=== PATIENT | female | born 1955 | race Caucasian/White ===

== ENCOUNTER 2018-04-24 17:07 | Emergency (ER) | payer OTHER ==
[~2018-04-24] VITALS: Ht 167.6 cm; Wt 117.0 kg
[~2018-04-24 17:07] MED LIST: ALBUTEROL2.5 MG/3 M IH; ALLOPURINOL 10100 M1 PO; ANALGESIC325 MG PO; ASPIR 8181 M1 PO; ATACAND8 MG PO; ATIVAN0.5 MG PO; ATIVAN1 MG PO; AZITHROMYCIN 2250 MG PO; AZITHROMYCIN250 MG PO; BACTRIM DS TAB1 EACH PO; BAYER CHEWABLE81 MG PO; CARAFATE 1 GM TA1 GM PO; CLA; CLA PO; CLA1000 MG PO; COLACE100 MG PO; COMBIVENT IN; COMBIVENT INH; COREG PO; CRESTOR10 MG PO; CRESTOR20 MG PO; CRESTOR40 MG PO; D3 + K2 DOTS 11 EACH PO; DIFLUCAN150 M1 PO; DIFLUCAN150 MG PO; DILAUDID4 MG PO; DOXYCYCLINE 10100 M2 PO; DOXYCYCLINE 10100 MG PO; DULCOLAX5 MG PO; FIBERCON625 M1 PO; FISH OIL 1,0001 EAC5 PO; FISH OIL 1,0001 EAC8 PO; FISH OIL 1,001000 M2; FISH OIL OMEGA1 EAC1 PO; FISH OIL OMEGA1 EAC3 PO; FLONASE 0.05%50 MCG NASAL; FUROSEMIDE 40 M40 M1 PO; GLUCOPHAGE1000 MG PO; GTF CHROMIUM PO; HERBAL ENERGY1 EACH; HUMALOG SC; HUMALOG100 UNIT/1 SQ; KLOR-CON 1010 MEQ PO; L-CARNITINE250 MG PO; LANTUS SC; LANTUS SUBQ; LANTUS100 UNIT/M; LEVAQUIN 500 M500 M2 PO; LEVAQUIN 500 M500 M4 PO; LEVEMIR INJECTION; LEVEMIR SUBQ; LIDOCAINE VISC100 ML MM; LISINOPRIL2.5 MG PO; LOPID600 MG PO; MACROBID 100 M100 M1 PO; MAGNESIUM OXID400 MG PO; MEDROLDOSEPACK PO; METAMUCIL POWD288 GM PO; METFORMIN HCL500 MG PO; MILK THISTLE500 MG; MIRALAX17 GM PO; MOTION RELIEF25 MG PO; MULTI FOR HER PO; NORCO 5-325 TA1 EACH PO; NORCO 7.5-3251 EACH PO; NOVOLOG100 UNIT/1 INJECTION; Nitroglycerin SL; ONDANSETRON HCL4 M2 PO; PAIN & FEVER500 MG PO; PAXIL10 MG PO; PEPCID20 MG PO; PLAVIX 75 MG TA75 MG PO; PREDNISONE 10 M10 M1 PO; PREDNISONE 20 M20 MG PO; PREDNISONE50 MG PO; PRILOSEC 20 MG20 MG PO; PROBIOTIC1 EAC1 PO; PROTONIX40 M1 PO; PROTONIX40 M2 PO; RANEXA500 MG PO; RASPBERRY KETONE; RED YEAST RICE30 GM PO; SIMVASTATIN40 MG; SINGULAIR 10 MG10 M1 PO; SYMBICORT160 MCG/4. INH; TESSALON PERLE100 MG PO; VENTOLIN HFA 1818 GM INH; VERTICALM25 MG PO; VITAMIN D1000 UNI1 PO; VITAMIN D3400 UNI1 PO; VITCB500GO PO; XOPENEX 1.25 MG/3 M1 IH; XOPENEX 1.25 MG/3 M1 INH; XOPENEX HF1 UDINHALE INH; ZOFRAN ODT4 MG PO; ZOFRAN ODT4 MG SUBLING; [UNRECOGNIZED DRUG - OTHER]; [UNRECOGNIZED DRUG - OTHER] PO; miralax
[2018-04-24 19:25] VITALS: BP 151/94
== END 2018-04-24 19:26 | disposition home or self-care (01) ==
LOC: M.ERS 17:07
DX: M77.9 Enthesopathy, unspecified (principal); I25.10 Atherosclerotic heart disease of native coronary artery without angina pectoris; E11.9 Type 2 diabetes mellitus without complications; J44.9 Chronic obstructive pulmonary disease, unspecified; K21.9 Gastro-esophageal reflux disease without esophagitis; I11.0 Hypertensive heart disease with heart failure; I50.9 Heart failure, unspecified; M79.7 Fibromyalgia; Z90.49 Acquired absence of other specified parts of digestive tract; Z95.5 Presence of coronary angioplasty implant and graft; Z88.5 Allergy status to narcotic agent; Z88.8 Allergy status to other drugs, medicaments and biological substances; Z88.0 Allergy status to penicillin

== ENCOUNTER → 2018-04-28 | Outpatient (CLI) | payer OTHER ==
[~2018-04-28] MED LIST changes: +BRILINTA60 MG PO; +CARAFATE 1 GM TA1 G1 PO; +EFFIENT10 MG PO; +FISH OIL 1,001000 M2 PO; +LASIX 40 MG TAB40 M2 PO; +NITROGLYCERIN0.4 MG SUBLING
== END ==
LOC: M.LAB 10:53
DX: Z01.812 Encounter for preprocedural laboratory examination (principal)

== ENCOUNTER 2018-05-11 13:46 | Observation (INO) | payer OTHER ==
[~2018-05-11] VITALS: Ht 167.6 cm; Wt 122.0 kg
[~2018-05-11 13:46] MED LIST changes: -BRILINTA60 MG PO; -CARAFATE 1 GM TA1 G1 PO; -EFFIENT10 MG PO; -FISH OIL 1,001000 M2 PO; -LASIX 40 MG TAB40 M2 PO; -NITROGLYCERIN0.4 MG SUBLING
[2018-05-11 13:47] VITALS: BP 154/71
[2018-05-11 14:04] LABS: ABSOLUTE EOSINOPHILS 0.1 thou/uL (0.0-0.7); ABSOLUTE LYMPHOCYTES 1.7 thou/uL (0.8-5.3); ABSOLUTE MONOCYTES 0.4 thou/uL (0.0-1.2); ABSOLUTE NEUTROPHILS 2.9 thou/uL (1.6-8.1); BASOPHILS 0.7 %; EOSINOPHILS 1.2 %; HEMOGLOBIN 14.6 gm/dL (12.0-15.0); LYMPHOCYTES 33.5 %; MCH 30.6 pg (26.0-34.0); MCHC 34.8 g/dL (28.0-37.0); MCV 87.8 fL (80.0-100.0); MONOCYTES 7.3 %; MPV 7.8 fl. (7.2-11.1); NUCLEATED RBCS 0 /100WBC; PLATELET COUNT* 227 thou/uL (150-400); POLYS 57.3 %; RBC 4.79 mil/uL (4.20-5.00); RDW-CV 12.6 % (10.5-14.5)
[2018-05-11 14:17] LABS: ANION GAP 7 mmol/L (7-16); BUN 17 mg/dL (7-18); CALCIUM 8.9 mg/dL (8.5-10.1); CHLORIDE 103 mmol/L (98-107); CO2 26 mmol/L (21-32); CREATININE 0.7 mg/dL (0.6-1.3); GLUCOSE 327 mg/dL (70-99); POTASSIUM 4.1 mmol/L (3.5-5.1); SODIUM 136 mmol/L (136-145)
[2018-05-11 14:18] LABS: INR 1.1; PROTIME 10.8 Seconds (9.20-11.50)
[2018-05-11 14:36] LABS: ALBUMIN 3.3 g/dL (3.4-5.0); ALKALINE PHOSPHATASE 81 U/L (46-116); CK-MB MASS 0.7 ng/mL (<0.5-3.6); LIPASE 206 U/L (73-393); MAGNESIUM 2.1 mg/dL (1.8-2.4); NT-PRO BRAIN NAT PEPTIDE 89 pg/mL (<300); SGOT 17 U/L (15-37); SGPT 25 U/L (30-65); TOTAL BILIRUBIN 0.5 mg/dL (<0.1-1.0); TOTAL PROTEIN 7.1 g/dL (6.4-8.2); TROPONIN-I LEVEL <0.06 ng/mL (<0.06)
[2018-05-11 15:01] VITALS: BP 136/69
[2018-05-11 15:19] VITALS: BP 146/59
[2018-05-11] MEDS ORDERED: LASIX 40 MG TAB40 M2 PO (15:36)
--- NOTE | 2018-05-11 15:40 | NUR ---
RECIEVED REPORT FROM JEAN PAUL RN IN ER OF EXPECTED ADMISSION AT 1452- DX: CHEST PAIN- PT ARRIVED TO UNIT AT 1508 VIA CART TO ROOM 219 UNDER CARE OF - SBA TO BED FOR TRANSFER- TAIL END RIDER PLACED ORDERED, TRACING SR- VS 97.8 18 146/59 76 97% ON 2L VIA NC- PT A&O X4, NOTED TO BE TEARFUL UPON ADMISSION, STATES "I JUST DON'T FEEL GOOD"- REPORTS THAT SHE MIRTHA IS TAKING CARE OF AT [facility], WHOM IS ON HOSPICE- CONTINENT OF BOWEL AND BLADDER- DIMINISHED LUNG SOUNDS, RESP EVEN AND UN-LABORED- ABDOMEN SOFT/OBESE- PT REPORTS EPIGASTRIC ABD PAIN UPON ADMISSION 04/26- BM REPORTED THIS AM- IV NOTED TO RIGHT WRIST INTACT AND SL- SKIN C/D/I, TATOO NOTED-HAS OWN TEETH- CARDIOLOGY CONSULTED, CURRENTLY NPO PENDING CONSULT- CALL LIGHT AND PERSONAL BELONGINGS WITH IN REACH- HOURLY ROUNDS IN PLACE R/T SAFETY/NEEDS-ALL NEEDS MET AT THIS TIME-WCTM
--- NOTE | 2018-05-11 16:03 | EKG ---
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: Tony CHRISTIAN : 1955 Requested By: Bon Belle Order Number: [id number] MD: Jamarcus Ly Measurements Intervals [place] Rate: 93 P: 49 [place]: 141 QRS: 29 QRSD: 85 T: 56 QT: 364 QTc: 453 Interpretive Statements Sinus rhythm Multiple ventricular premature complexes Compared to ECG 06/25/2017 11:43:05 Ventricular premature complex(es) now present Electronically Signed On 05-11-2018 16:03:03 CDT by Jamarcus Ly [email or web address] <ELECTRONICALLY SIGNED> By: Jamarcus Ly MD, FACC 05/11/18 1603 1350 1350 Jamarcus Ly MD, FAC /EPI
[2018-05-11 20:08] VITALS: BP 125/80
[2018-05-12] VITALS (8 sets, daily range): BP systolic 104–139; BP diastolic 43–75
[2018-05-12 02:02] LABS: CHOLESTEROL 241 mg/dL (<200); HDL CHOLESTEROL 37 mg/dL (>40); LDL CHOLESTEROL 166 mg/dL (<100); TC:HDL 6.5 Ratio (Not establshd); TRIGLYCERIDE 193 mg/dL (<150); VLDL 39 mg/dL (<40)
[2018-05-12 02:04] LABS: SERUM ASSESSMENT Clear
--- NOTE | 2018-05-12 06:50 | NUR ---
Pt medicated for c/o epigastric pain at 2130, rated 6/10. Pt appeared to be asleep on reassessment. VSS. No calls for additional needs overnight. NPO since MS for stress echo today. Will continue to monitor.
--- NOTE | 2018-05-12 11:43 | EKG ---
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
--- NOTE | 2018-05-12 13:55 | EXE ---
[place] [address] STRESS ECHOCARDIOGRAM Name: FAUSTINO JACKSON Room: [address] IN [facility]#: [id number] Admission: 05/11/18 Attend Phys: Lore Chapman, Discharge: Date of : 53 Date of Service: 05/12/18 1354 Report #: [id number] THIS REPORT FOR: //name// APPROVED REPORT Study performed: 05/12/2018 11:17:33 Exam: Dobutamine Stress Echo Indication: Chest pain Patient Location: In-Patient Stress Nurse: Kierra Casas RN Room #: 219 Supervising Physician: Jamarcus Ly MD Status: routine Ht: 5 ft 6 in HR: 69 bpm BP: 103/64 mmHg Medical History Cardiac Risk Factors: HTN, Hyperlipidemia, DM Procedure The patient underwent a Pharmacological Stress Test using Dobutamine. Blood pressure, heart rate, and EKG were monitored. An Echocardiogram was performed by artificial insemination technician in four stages in quad fashion. At peak stress, four selected images were obtained and placed side by side with resting images for comparison. Stress Test Details Stress Test: Pharmacological stress testing performed using 30 mcg/kg/min of Dobutamine. Reason for pharmacologic stress test: physical limitation. HR Resting HR: 69 bpm Max Heart Rate (APMHR): 156 bpm Max HR Achieved: 138 bpm Target HR (85% APMHR): 132 bpm % of APMHR: 88 Recovery HR: 97 bpm HR response to stress: Normal HR response to stress BP Resting BP: 103/64 mmHg Max BP: 147/84 mmHg Recovery BP: 131/63 [place] [address] STRESS ECHOCARDIOGRAM Name: FAUSTINO JACKSON Room: [address]#: [id number] Admission: 05/11/18 Attend Phys: Lore Chapman, Discharge: Date of : 53 Date of Service: 05/12/18 1354 Report #: [id number] ECG Resting ECG: Sinus Rhythm, normal EKG Stress ECG: Sinus Tachycardia ST Change: None Arrhythmia: None Recovery ECG: Sinus Rhythm Recovery ST Change: None Recovery Arrhythmia: None Clinical The patient tolerated dobutamine infusion without significant symptoms. Stress ECG Conclusion The baseline 12-lead electrocardiogram shows sinus rhythm with no significant ST or T wave abnormalities. EKGs obtained during and post dobutamine stress show sinus rhythm and sinus tachycardia with no significant ST or T wave changes when compared to baseline. There were no stress-induced arrhythmias. Pre-Stress Echo The resting Echocardiogram showed normal left ventricular contractility with an estimated Ejection Fraction of about 60-65%. Post-Stress Echo The stress Echocardiogram showed normal left ventricular contractility with an estimated Ejection Fraction of about >70%. Clinical No clinical or ECG evidence for ischemia. Conclusion Clinical Response: Non-ischemic Stress ECG Response: Non-ischemic Stress Echo Images: Non-ischemic The left ventricle is normal in size and wall thickness in both the rest and stress images. Other Information Study Quality: Good <Conclusion> [place] [address] STRESS ECHOCARDIOGRAM Name: FAUSTINO JACKSON Room: [address]#: [id number] Admission: 05/11/18 Attend Phys: Lore Chapman, Discharge: Date of : 53 Date of Service: 05/12/18 1354 Report #: [id number] The left ventricle is normal in size and wall thickness in both the rest and stress images. <ELECTRONICALLY SIGNED> By: Jamarcus Ly MD, FACC 05/12/18 1354 1354 135 Jamarcus Ly MD, FACC /INF
--- NOTE | 2018-05-12 13:56 | EKG ---
[place] [address] ELECTROCARDIOGRAM REPORT Name: URMILA JACKSONChristopher SIGRID Room: [address] ADM IN .R.#: [id number] Admission: 05/11/18 Attend Phys: Lore Chapman MD Discharge: Date of : 53 Report #: [id number] THIS REPORT FOR: //name// 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
--- NOTE | 2018-05-12 14:10 | NUR ---
ASSUMED CARE OF PATIENT AFTER REPORT THIS MORNING. PATIENT AWAKE, ALERT, AND ORIENTED APPROPRIATELY. PHYSICAL ASSESSMENT COMPLETED AND CHARTED. COMPLAINED OF HEADACHE. GIVEN PRN AND SCHEDULED MEDICATIONS AFTER STRESS TEST, SEE EMAR FOR DOCUMENTATION. VITAL SIGNS STABLE. OXYGEN SATURATION WITHIN NORMAL LIMITS ON ROOM AIR. PATIENT UP AD BRITTANEY. USES CALL LIGHT APPROPRIATELY. MOVED PATIENT TO [facility] FOR [facility] WARNING THIS AFTERNOON. BACK IN ROOM AT THIS TIME WARNING HAS BEEN LIFTED. PATIENT DENIES NEEDS. CALL LIGHT WITHIN REACH. NURSING WILL CONTINUE TO MONITOR.
--- NOTE | 2018-05-12 16:35 | NUR ---
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 DISCUSSED WITH HER THAT DR. WASHINGTON FELT SHE WAS READY TO DISCHARGE TO HOME, OR WE COULD LOOK INTO TRANSFERRING HER TO [place] TO AN IN-NETWORK FACILITY. PT SAID SHE WAS GLAD TO FIND OUT THAT HER 'PAIN WAS NOT MY HEART.' PT SAID THE BURNING THAT SHE WAS HAVING IS BETTER AND SHE THINKS THE NEW MEDICINE IS HELPING. SHE SAID SHE FEELS THAT SHE IS READY TO GO HOME. TOLD HER SHE COULD FOLLOW UP WITH GI AN OUTPATIENT FOR FURTHER TESTING. PT SAID SHE DOES WANT TO GET HOME, HER IS ON HOSPICE AND THEY ARE SWITCHING TO A DIFFERENT HOSPICE AGENCY. CALLED DR. WASHINGTON TO LET HER KNOW PT IS COMFORTABLE WITH GOING HOME TONIGHT. NURSING NOTIFIED THAT DR WASHINGTON SAID SHE WOULD PUT THE DISCHARGE ORDERS IN THE COMPUTER AND NURSING CAN CALL IN THE NEW PRESCRIPTIONS.
[2018-05-12] MEDS ORDERED: CARAFATE 1 GM TA1 G1 PO (16:44)
[2018-05-12] MEDS ORDERED: PROTONIX40 M1 PO (16:44)
[2018-05-12] MEDS ORDERED: VITAMIN D1000 UNI1 PO (17:14)
--- NOTE | 2018-05-12 17:41 | NUR ---
RECEIVED ORDERS TO DISCHARGE PATIENT TO HOME. TO FOLLOW UP WITH GI FOR OUTPATIENT EGD. DISCHARGE PAPERWORK COMPLETED AND DISCUSSED WITH PATIENT. CALLED IN PRESCRIPTIONS TO [facility] FOR PROTONIX AND CARAFATE. IV DISCONTINUED AND HEART MONITOR RETURNED TO NURSE'S STATION. PATIENT DISCHARGED WITH SON AT THIS TIME. ESCORTED TO FRONT DOOR BY DIRECTOR PHONE TABBY.
--- NOTE | 2018-05-16 14:07 | CON ---
[address] [address] CONSULTATION Name: FAUSTINO JACKSON Room: [address] IN M.R.#: [id number] Admission: 05/11/18 Attend Phys: Lore Chapman MD Discharge: 05/12/18 Date of : 53 Report #: [id number] THIS REPORT FOR: //name// CC: Raven Johnson DO Lore Chapman DICTATED BY: Nerissa Borrego [facility] DATE OF SERVICE: 05/12/2018 PRIMARY CARE PHYSICIAN: Raven Johnson D.O. Please note at the time of this dictation, the patient was seen and physically examined by myself. REASON FOR CONSULTATION: Atypical chest pain. HISTORY OF PRESENT ILLNESS: This 63-year-old female who presented to the Emergency Room with having chest pain that radiated into her jaw and down her left arm. She received nitro and aspirin, which she states did relieve her pain; however, she continued to have this burning sensation in her stomach and up into her chest. She was given a GI cocktail with a combination of everything that did help. The patient has a significant history for CAD. She has a history of 3 stents done in the past. She underwent a stress echo today, which was essentially negative showing an EF of 60%-65%. The patient states she is still having this epigastric discomfort, burning that will radiate up into her chest at the present time. She is not having any nausea or vomiting at this time as well. The patient states back in 2013 that she had an EGD at [place] but she does not recall what the findings were. She also had a colonoscopy many years ago and does not recall findings as well. She has a longstanding history of issues with constipation in which she will take numerous gmso-[id number] agents to help with that, so that she is going every day. ALLERGIES: Include COMPAZINE, KEFLEX, CIPRO, CODEINE, ZETIA, PENICILLIN, PROMETHAZINE, LIPITOR and LOPRESSOR. MEDICATIONS: From home include potassium, vitamin D, aspirin, multivitamin, MiraLax, Dulcolax, magnesium oxide, vitamin D and fish oil. PAST MEDICAL HISTORY: Significant for fibromyalgia, TMJ, history of bronchitis, pneumonia in the past, GERD, congestive heart failure. She has had coronary artery disease with stents x 3, hypertension, diabetes and COPD. PAST SURGICAL HISTORY: Cataract surgery in 2013. She has had an ablation and stent [place] [address] CONSULTATION Name: FAUSTINO JACKSON Room: [address]#: [id number] Admission: 05/11/18 Attend Phys: Lore Chapman MD Discharge: 05/12/18 Date of : 53 Report #: [id number] FAMILY HISTORY: Negative for any GI or female cancers. SOCIAL HISTORY: Denies any alcohol, tobacco or illegal drug use. REVIEW OF SYSTEMS: Twelve-point review of systems is essentially negative except what is mentioned in the HPI. PHYSICAL EXAMINATION: VITAL SIGNS: Temperature 36.4, pulse 79, respirations 18 and blood pressure 114/63. HEART: Regular rate and rhythm. LUNGS: Clear. ABDOMEN: Soft. Positive bowel sounds in all 4 quadrants with some epigastric tenderness noted to palpation, radiating up into the chest. LABORATORY DATA: Hemoglobin 14.6, hematocrit 42, white count is 5 and platelets 227. Sodium 136, potassium 4.1, chloride 103, CO2 of 26, BUN is 17, creatinine 0.7, GFR is 84 and glucose is 327. PT 10.8 and INR 1.1. RADIOLOGICAL DATA: Chest x-ray was negative. IMPRESSION: 1. Atypical chest pain, stress negative. 2. Gastroesophageal reflux disease, worsening. 3. Epigastric pain. 4. Chronic constipation. PLAN: 1. EGD tomorrow with Dr. Fuller. 2. The patient will need a better regular bowel regimen going home. 3. We will need outpatient colonoscopy for screening once discharged. Thank you for allowing us to participate in this patient's care. Please do not hesitate to call with any questions in regard to this consult. <ELECTRONICALLY SIGNED> By: Everett Rodríguez DO 05/16/18 1407 1549 [id number] Rodríguez DO /nt
--- NOTE | 2018-05-17 18:18 | CON ---
[address] [address] CONSULTATION Name: FAUSTINO JACKSON Room: [address] IN M.R.#: [id number] Admission: 05/11/18 Attend Phys: Lore Chapman MD Discharge: 05/12/18 Date of : 53 Report #: [id number] THIS REPORT FOR: //name// CC: Raven Hadley DATE OF SERVICE: 05/11/2018 TYPE OF REPORT: Cardiology consultation. HISTORY OF THE PRESENT ILLNESS: The patient is a 63-year-old white female who I was asked to see in the hospital today after she complained of chest pain. The patient has an extensive past medical history. She actually saw Dr. Ly back in 2009 when she was having back pain. She had a previous stent placed at [facility] in 2008. She also has a history of SVT and had a previous ablation. 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 She then had a stent placed in the LAD for in-stent restenosis. She had another heart catheterization by Dr. Ly in 2011 that showed normal left ventricular function, anomalous circumflex artery and widely patent stent. It is felt her chest pain was noncardiac. She had another heart catheterization in [address] Montague that showed LAD had no restenosis. The anomalous circumflex had no significant disease. The right coronary had a 30% stenosis. Medical therapy was recommended. She actually had another heart catheterization by Dr. 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 She just saw Dr. Ly a week ago for followup and apparently she was doing well. However, she has not felt well for the past week with pain going into her back. Today, she felt a burning epigastric, going up into her throat. She felt a burning sensation. She belched, felt diaphoretic, short of breath and nauseated. She called the ambulance and was brought here to [facility]. She denied any fever or cough, bleeding, trauma to her chest. She does get short of breath on exertion. She notes occasional skipped heartbeat but no syncope. PAST MEDICAL HISTORY: She has had a previous surgery that included the following: She has had her gallbladder removed in the past. She has a history of hypertension, glucose intolerance and hyperlipidemia. MEDICATIONS: Include furosemide for swelling and aspirin a day. She is no longer on metformin. ALLERGIES: She cannot tolerate STATIN DRUGS, CODEINE, ZETIA, [place] [address] CONSULTATION Name: FAUSTINO JACKSON Room: [address] IN [facility].#: [id number] Admission: 05/11/18 Attend Phys: Lore Chapman MD Discharge: 05/12/18 Date of : 53 Report #: [id number] PENICILLIN. FAMILY HISTORY: Positive for heart disease. SOCIAL HISTORY: She is . She and her live in [place]. She is not working at this time. She is cared for her who is under hospice. She quit smoking years ago. No alcohol abuse. REVIEW OF SYSTEMS: She had no history of stroke. She does have asthma. No history of peptic ulcer disease, kidney disease, cancer, psychiatric illness or chronic skin condition. PHYSICAL EXAMINATION: GENERAL: Revealed an elderly female who appeared in mild distress secondary to epigastric pain. VITAL SIGNS: She had a blood pressure of 140/70, pulse 70 and she is afebrile. HEENT: She is anicteric. Conjunctivae pink. Mucous members moist. NECK: Veins do not appear distended. No carotid bruits. CHEST: Clear to auscultation. CARDIOVASCULAR: Regular rate and rhythm. ABDOMEN: Obese, soft and nontender. EXTREMITIES: Had no edema. Dorsalis pedis is 2+ bilaterally. SKIN: Warm and dry. NEUROLOGICAL: Nonfocal. LYMPHATIC: No adenopathy. MUSCULOSKELETAL: No joint effusion. RADIOLOGICAL DATA: She had a workup in the Emergency Room that included portable chest x-ray that showed normal heart size and clear lung redman. LABORATORY DATA: She had lab work today: Sodium 136, creatinine 0.7 and glucose 327. Lipase 206, bilirubin 0.5 and alkaline phosphatase is 81. Her troponin 0.06. The rest of her labs, she had a white blood cell count 5.0 and hemoglobin 14.6. IMPRESSION AND RECOMMENDATIONS: 1. Epigastric pain. Suspect gastrointestinal. 2. Coronary artery disease. Previous stent. Recommend dobutamine echo. 3. Hypertension. The patient is not on medications. 4. Hyperlipidemia. The patient tolerates statin drug. 5. Diabetes. The patient not taking metformin. 6. [place] [address] CONSULTATION Name: FAUSTINO JACKSON Room: [address] IN M.R.#: [id number] Admission: 05/11/18 Attend Phys: Lore Chapman MD Discharge: 05/12/18 Date of : 53 Report #: [id number] 7. History of supraventricular tachycardia with previous ablation. No recent arrhythmias noted. <ELECTRONICALLY SIGNED> By: Dejon Buck MD, FACC 05/17/18 1818 1719 2128Daellen Buck MD, FACAndres /nt
--- NOTE | 2018-05-18 16:57 | CON ---
[address] [address] CONSULTATION Name: FAUSTINO JACKSON Room: [address] IN M.R.#: [id number] Admission: 05/11/18 Attend Phys: Lore Chapman MD Discharge: 05/12/18 Date of : 53 Report #: [id number] THIS REPORT FOR: //name// CC: Raven Chapman DATE OF SERVICE: 05/12/2018 ADDENDUM TYPE OF REPORT: GI consultation. REFERRING PHYSICIAN: Dr. Lore Chapman. This is an addendum to job #[id number]. The patient was seen and examined by our nurse practitioner, earlier today, by the time I went to see her, she has been discharged to home. We are seeing her for noncardiac atypical chest discomfort and chest pain with a negative stress test. If she wants to undergo endoscopic evaluation, she will need to contact our office to schedule the same. She also due for a screening colonoscopy as well. Since the patient has been discharged, we will contact her to arrange for the same. She will likely need to have a 2-day bowel preparation secondary to chronic constipation. It should be noted that the patient is under a lot of stress at this point in time with her currently being on hospice care. This certainly contributing to some of her discomfort. <ELECTRONICALLY SIGNED> By: Everett Rodríguez DO 05/18/18 1657 1325 [id number] alvarez Ramirez
== END 2018-05-12 17:48 | disposition home or self-care (01) ==
LOC: M.ERS 13:46 → M.TBA-ER 14:38 → M.2W 14:38
PROVIDERS: Family Medicine; ADMIT Internal Medicine
DX: R07.89 Other chest pain (principal); K21.9 Gastro-esophageal reflux disease without esophagitis; E11.65 Type 2 diabetes mellitus with hyperglycemia; I25.10 Atherosclerotic heart disease of native coronary artery without angina pectoris; I11.0 Hypertensive heart disease with heart failure; I50.9 Heart failure, unspecified; R10.13 Epigastric pain; J44.9 Chronic obstructive pulmonary disease, unspecified; K59.09 Other constipation; Z98.890 Other specified postprocedural states; Z90.49 Acquired absence of other specified parts of digestive tract; Z79.899 Other long term (current) drug therapy; Z98.61 Coronary angioplasty status; Z60.9 Problem related to social environment, unspecified

== ENCOUNTER 2018-06-07 16:38 | Inpatient (IN) | payer OTHER ==
[2018-06-07] VITALS (8 sets, daily range): BP systolic 95–156; BP diastolic 45–93
[~2018-06-07] VITALS: Ht 167.6 cm; Wt 121.1 kg
[~2018-06-07 16:38] MED LIST changes: +CARAFATE 1 GM TA1 G1 PO; +LASIX 40 MG TAB40 M2 PO
[2018-06-07 17:02] LABS: ABSOLUTE BASOPHILS 0.1 thou/uL (0.0-0.2); ABSOLUTE EOSINOPHILS 0.1 thou/uL (0.0-0.7); ABSOLUTE LYMPHOCYTES 1.7 thou/uL (0.8-5.3); ABSOLUTE MONOCYTES 0.4 thou/uL (0.0-1.2); ABSOLUTE NEUTROPHILS 4.3 thou/uL (1.6-8.1); BASOPHILS 1.2 %; HEMATOCRIT 44.2 % (37.0-47.0); HEMOGLOBIN 15.2 gm/dL (12.0-15.0); LYMPHOCYTES 26.1 %; MCH 30.3 pg (26.0-34.0); MCHC 34.3 g/dL (28.0-37.0); MCV 88.4 fL (80.0-100.0); MONOCYTES 5.5 %; MPV 8.4 fl. (7.2-11.1); NUCLEATED RBCS 0 /100WBC; PLATELET COUNT* 248 thou/uL (150-400); POLYS 66.2 %; RDW-CV 12.6 % (10.5-14.5); WBC 6.4 thou/uL (4.0-11.0)
[2018-06-07 17:10] LABS: CALCIUM 9.7 mg/dL (8.5-10.1)
[2018-06-07 17:17] LABS: APTT 23.6 Seconds (25.0-31.3); INR 1.1; PROTIME 10.7 Seconds (9.20-11.50)
[2018-06-07 17:21] LABS: ALBUMIN 3.4 g/dL (3.4-5.0); TOTAL BILIRUBIN 0.7 mg/dL (<0.1-1.0); TOTAL PROTEIN 7.3 g/dL (6.4-8.2); TROPONIN-I LEVEL 0.4 ng/mL (<0.06)
[2018-06-07 20:42] LABS: CHOLESTEROL 265 mg/dL (<200); HDL CHOLESTEROL 40 mg/dL (>40); LDL CHOLESTEROL 154 mg/dL (<100); TC:HDL 6.6 Ratio (Not establshd); TRIGLYCERIDE 359 mg/dL (<150); VLDL 72 mg/dL (<40)
[2018-06-07 20:43] LABS: SERUM ASSESSMENT Slight Lipemia
--- NOTE | 2018-06-07 22:56 | NUR ---
PATIENT ARRIVED ON UNIT FROM [facility] @ 1999. NS RUNNING, RIGHT GROIN SITE LOOKS GREAT, NO HEMATOMA PRESENT, MINIMAL BLOOD DRAINAGE. PT DENIES PAIN, NO N &V. DR. SINGER AT BEDSIDE. PT COMPLAINING INDIGESTION ORDERS RECIEVED FROM . CAROLYN PARTIDA WITH OCCATIONAL PVS. PT DID VOID ABOUT 500ML. SPOKE WITH FAMILY NO FURTHER CONCERNS AT THIS TIME. WILL CONTINUE TO MONITOR CLOSELY
[2018-06-08] VITALS (12 sets, daily range): BP systolic 90–101; BP diastolic 45–57
[2018-06-08 03:45] LABS: HEMATOCRIT 41.2 % (37.0-47.0); HEMOGLOBIN 13.9 gm/dL (12.0-15.0); MCH 30.2 pg (26.0-34.0); MCHC 33.8 g/dL (28.0-37.0); MCV 89.4 fL (80.0-100.0); MPV 8.2 fl. (7.2-11.1); RBC 4.61 mil/uL (4.20-5.00); RDW-CV 12.7 % (10.5-14.5); WBC 7.5 thou/uL (4.0-11.0)
[2018-06-08 04:12] LABS: ALBUMIN 2.8 g/dL (3.4-5.0); CALCIUM 8.7 mg/dL (8.5-10.1); CREATININE 0.7 mg/dL (0.6-1.3); MAGNESIUM 1.6 mg/dL (1.8-2.4); TOTAL BILIRUBIN 0.5 mg/dL (<0.1-1.0)
[2018-06-08 05:28] LABS: TROPONIN-I LEVEL 17.76 ng/mL (<0.06)
--- NOTE | 2018-06-08 05:58 | NUR ---
PATIENT PROGRESSING TOWARDS GOALS. HEMODYNAMICALLY STABLE OVER NIGHT NO ACUTE CHANGES. RIGHT GROIN SITE LOOKS GREAT, HEMATOMA FREE, MINIMAL BRUISING, NO BLEEDING, SITE INTACT, DENIES PAIN. PULSES 2+, CAPILLARY REFILL <3. PT DID VOID. CURRENTLY SLEEPING NO FUTHER CONCERNS AT THIS TIME. BED TO LOWEST POSITION. CALL LIGHT IN PLACE.
--- NOTE | 2018-06-08 10:30 | NUR ---
PT ADMITTED YESTERDAY, WENT FROM THE ED TO [facility]. PT SAID SHE IS FEELING BETTER TODAY BUT 'WASN'T SURE I WAS GOING TO MAKE IT YESTERDAY.' PT LIVES AT HOME WITH HER WHO IS ON HOSPICE. THEIR CHILDREN ARE HELPING CARE FOR HER WHILE SHE IS IN THE HOSPITAL. THEY ARE CURRENTLY LIVING WITH THEIR CHILDREN BUT ARE PLANNING ON MOVING TO THEIR OWN APT NEXT WEEK. PT SAID SHE KNOWS SHE CAN'T OVERDO IT IN TAKING CARE OF HER . PT CONCERNED ABOUT THE COST OF HER MEDS AT DISCHARGE. WILL CHECK INTO OPTIONS AT DISCHARGE. DISCUSSED ROLE OF CASE MGT, WILL CONTINUE TO FOLLOW.
--- NOTE | 2018-06-08 13:53 | NUR ---
PATIENT DENIES CHEST PAIN UP TO BSC. NSR SEE MONITOR.
--- NOTE | 2018-06-08 16:51 | 2DMMODE ---
[place] [address] 2 D/M-MODE ECHOCARDIOGRAM Name: FAUSTINO JACKSON Room: [address] IN [facility]#: [id number] Admission: 06/07/18 Attend Phys: Lore Chapman, Discharge: Date of : 53 Date of Service: 06/08/18 1651 Report #: [id number] THIS REPORT FOR: //name// APPROVED REPORT Study performed: 06/08/2018 14:09:28 EXAM: Comprehensive 2D, Doppler, and color-flow Echocardiogram Patient Location: In-Patient Room #: 001 Status: routine BSA: 2.28 HR: 85 bpm BP: 92/48 mmHg Rhythm: NSR Other Information Study Quality: Good Indications Acute AZ Chest Pain 2D Dimensions LVEF(%): 57.26 (>50%) IVSd: 10.98 (7-11mm) LVOT Diam: 19.12 (18-24mm) LVDd: 47.52 mm PWd: 11.25 (7-11mm) Ascending Ao: 28.37 (22-36mm) LVDs: 33.23 (25-40mm) Aortic Root: 26.74 mm Mars's LVEF: 57.26 % Volumes Left Atrial Volume (Systole) LA ESV Index: 20.90 mL/m2 Aortic Valve AoV Peak Jayme.: 2.02 m/s AO Peak Gr.: 16.37 mmHg LVOT Max P.44 mmHg AO Mean Gr.: 10.01 mmHg LVOT Mean P.26 mmHg LVOT Max V: 1.05 m/s AO V2 VTI: 40.12 cm LVOT Mean V: 0.69 m/s VLADIMIR (VTI): 1.61 cm2 LVOT V1 VTI: 22.48 [place] [address] 2 D/M-MODE ECHOCARDIOGRAM Name: FAUSTINO JACKSON SIGRID Room: [address] IN .R.#: [id number] Admission: 06/07/18 Attend Phys: Lore Chapman, Discharge: Date of : 53 Date of Service: 06/08/18 1651 Report #: [id number] E/A Ratio: 1.04 MV Decel. Time: 180.26 ms MV E Max Jayme.: 1.09 m/s MV PHT: 52.28 ms MVA (PHT): 4.21 cm2 TDI E/Lateral E': 9.91 E/Medial E': 9.91 Medial E' Jayme.: 0.11 m/s Lateral E' Jayme.: 0.11 m/s Pulmonary Valve PV Peak Jayme.: 1.22 m/s PV Peak Gr.: 5.92 mmHg Tricuspid Valve RAP Estimate: 5.00 mmHg TR Peak Gr.: 31.61 mmHg RVSP: 36.61 mmHg PA Pressure: 36.61 mmHg Left Ventricle The left ventricle is normal size. There is normal LV segmental wall motion. There is normal left ventricular wall thickness. Left ventricular systolic function is normal. The left ventricular ejection fraction is within the normal range. LVEF is 55-60%. The left ventricular diastolic function is normal. Right Ventricle The right ventricle is normal size. The right ventricular systolic function is normal. Atria The left atrium size is normal. The right atrium size is normal. Aortic Valve Mild aortic valve sclerosis. No aortic regurgitation is present. There is no aortic valvular stenosis. Mitral Valve The mitral valve is normal in structure. Mild mitral regurgitation. No evidence of mitral valve stenosis. Tricuspid Valve The tricuspid valve is normal in structure. Trace tricuspid regurgitation. Mild [place] [address] 2 D/M-MODE ECHOCARDIOGRAM Name: FAUSTINO JACKSON Room: [address] IN ..#: [id number] Admission: 06/07/18 Attend Phys: Lore Chapman, Discharge: Date of : 53 Date of Service: 06/08/18 1651 Report #: [id number] Pulmonic Valve The pulmonary valve is normal in structure. There is no pulmonic valvular regurgitation. Great Vessels The aortic root is normal in size. IVC is normal in size and collapses with >50% inspiration Pericardium There is no pericardial effusion. <Conclusion> The left ventricle is normal size. There is normal left ventricular wall thickness. Left ventricular systolic function is normal. The left ventricular ejection fraction is within the normal range. LVEF is 55-60%. The left ventricular diastolic function is normal. The right ventricle is normal size. The left atrium size is normal. Mild aortic valve sclerosis. No aortic regurgitation is present. There is no aortic valvular stenosis. The mitral valve is normal in structure. Mild mitral regurgitation. The tricuspid valve is normal in structure. IVC is normal in size and collapses with >50% inspiration There is no pericardial effusion. There is normal LV segmental wall motion. <ELECTRONICALLY SIGNED> By: Ben Pack MD, FACC 06/08/18 165 50 50 Ben Pack MD, FACC /INF
--- NOTE | 2018-06-08 17:13 | CON ---
[address] [address] CONSULTATION Name: FAUSTINO JACKSON Room: [address] IN [facility]#: [id number] Admission: 06/07/18 Attend Phys: Lore Chapman MD Discharge: Date of : 53 Report #: [id number] THIS REPORT FOR: //name// CC: Raven Chapman DATE OF SERVICE: 06/07/2018 CARDIOLOGY CONSULTATION The patient to be admitted to the ICU on 06/07/2018. HISTORY OF PRESENT ILLNESS: The patient is a 63-year-old female who came to the Emergency Room with severe chest pain and associated nausea and vomiting. There is a history of prior coronary stenting and diabetes. She was noted to have a blood sugar of greater than 400 mg percent in the ER. Electrocardiogram revealed minor nonspecific ST-T alterations. She had persistent pain and a troponin of 0.4 with findings compatible with non-ST segment elevation myocardial infarction with persistent pain. I was asked to see her in this context. The pain persisted at the point of undertaking catheterization. PAST MEDICAL HISTORY: Remarkable for diabetes, weight excess and prior coronary stenting. SOCIAL HISTORY: Prior cigarette smoking history. PHYSICAL EXAMINATION: GENERAL: Demonstrates a distressed middle-aged female. VITAL SIGNS: Blood pressure is 140/70, pulse rate 74, respirations 18 per minute. NECK: Jugular venous pressure is normal. CHEST: Clear. CARDIAC: Reveals normal first and second heart sounds with a question of S4 gallop. ABDOMEN: Moderately obese. EXTREMITIES: Without edema with intact femoral, pedal and radial pulses. Electrocardiogram reveals a sinus rhythm with minor nonspecific ST-T changes. Troponins elevated at 0.4. IMPRESSION: 1. Non-ST segment elevation myocardial infarction with persistent pain. 2. Uncontrolled diabetes with blood sugar greater than 400 [place] [address] CONSULTATION Name: FAUSTINO JACKSON Room: [address] IN [facility]#: [id number] Admission: 06/07/18 Attend Phys: Lore Chapman MD Discharge: Date of : 53 Report #: [id number] 3. Weight excess. RECOMMENDATIONS: Urgent catheterization with strong consideration of intervention contingent on the findings given the clinical pattern of non-ST segment elevation myocardial infarction with persistent pain. This has been discussed with the patient. We will plan to proceed emergently on 06/07/2018. Critical care time is 36 minutes from [id number]. <ELECTRONICALLY SIGNED> By: Ben Pack MD, FACC 06/08/181712 55 2059Ben Pack MD, FACC /nt
--- NOTE | 2018-06-08 19:31 | EKG ---
[place] [address] ELECTROCARDIOGRAM REPORT Name: FAUSTINO JACKSON Room: [address] IN [facility]#: [id number] Admission: 06/07/18 Attend Phys: Lore Chapman MD Discharge: Date of : 53 Report #: [id number] THIS REPORT FOR: //name// [facility] ED Test Date: 2018-06-07 Test Time: 16:42:29 Pat Name: FAUSTINO JACKSON Department: Room: Gender: Readers' Advisory Service Librarian: Tony ENGLE : 1955 Requested By: Maya Tovar Order Number: [id number] MD: Jamarcus Ly Measurements Intervals [place] Rate: 99 P: 31 AL: 134 QRS: 52 QRSD: 102 T: 94 QT: 369 QTc: 474 Interpretive Statements Sinus rhythm Compared to ECG 05/12/2018 01:58:22 No significant changes noted Electronically Signed On 06-08-2018 19:31:45 CDT by Jamarcus Ly [email or web address] <ELECTRONICALLY SIGNED> By: Jamarcus Ly MD, [facility] 06/08/181930 1642 164 Jamarcus Ly MD, [facility] /EPI
--- NOTE | 2018-06-08 19:33 | EKG ---
[place] [address] ELECTROCARDIOGRAM REPORT Name: FAUSTINO JACKSON Room: [address] ADM IN .R.#: [id number] Admission: 06/07/18 Attend Phys: Lore Chapman MD Discharge: Date of : 53 Report #: [id number] THIS REPORT FOR: //name// [facility] Test Date: 2018-06-07 Test Time: 21:04:53 Pat Name: FAUSTINO JACKSON Department: Room: [address] Gender: F Communication Assistant: [facility] : 1955 Requested By: Ben Pack Order Number: [id number] Subhash MD: Jamarcus Ly Measurements Intervals [place] Rate: 80 P: 39 CT: 142 QRS: -18 QRSD: 91 T: 36 QT: 394 QTc: 455 Interpretive Statements Sinus rhythm Borderline left axis deviation Compared to ECG 05/12/2018 01:58:22 No significant changes Electronically Signed On 06-08-2018 19:33:14 CDT by Jamarcus Ly [email or web address] <ELECTRONICALLY SIGNED> By: Jamarcus Ly MD, [facility] 06/08/18 1933 03 03 Jamarcus Ly MD, [facility] /EPI
--- NOTE | 2018-06-08 19:35 | EKG ---
[place] [address] ELECTROCARDIOGRAM REPORT Name: FAUSTINO JACKSON Room: [address] ADM IN .R.#: [id number] Admission: 06/07/18 Attend Phys: Lore Chapman MD Discharge: Date of : 53 Report #: [id number] THIS REPORT FOR: //name// [facility] Test Date: 2018-06-08 Test Time: 07:54:16 Pat Name: FAUSTINO JACKSON Department: Room: [address] Gender: F Dredge Mate: CHERELLE : 1955 Requested By: Ben Pack Order Number: [id number] Subhash MD: Jamarcus Ly Measurements Intervals [place] Rate: 75 P: 53 AR: 165 QRS: -23 QRSD: 94 T: 5 QT: 419 QTc: 468 Interpretive Statements Sinus rhythm Borderline left axis deviation Compared to ECG 05/12/2018 01:58:22 No significant changes Electronically Signed On 06-08-2018 19:35:27 CDT by Jamarcus Ly [email or web address] <ELECTRONICALLY SIGNED> By: Jamarcus Ly MD, [facility] 06/08/181934 0754 0754 Jamarcus Ly MD, [facility] /EPI
[2018-06-09] VITALS (11 sets, daily range): BP systolic 101–140; BP diastolic 45–77
--- NOTE | 2018-06-09 06:00 | NUR ---
PATIENT PROGRESSING TOWARDS. NO ACUTE HEMODYNAMIC CHANGES OVERNIGHT. PT DID HAVE A HEADACHE AT SHIFT CHANGE. HEADACHE STILL PRESENT BUT PT STATED PAIN LEVEL IS MANAGABLE. PT WAS ABLE TO SLEEP OVER NIGHT. UO WNL. VITAL SINGS WNL. PT STATE SHE IS READY TO GO HOME AND TAKE CARE OF HER . CALL LIGHT WITH PT. BED TO LOWEST POSITION. WILL CONTINUE TO MONITOR
[2018-06-09 06:05] LABS: HEMATOCRIT 40.2 % (37.0-47.0); HEMOGLOBIN 13.6 gm/dL (12.0-15.0); MCH 30.5 pg (26.0-34.0); MCHC 33.8 g/dL (28.0-37.0); MCV 90.3 fL (80.0-100.0); MPV 8.2 fl. (7.2-11.1); RBC 4.45 mil/uL (4.20-5.00); RDW-CV 12.9 % (10.5-14.5); WBC 5.2 thou/uL (4.0-11.0)
[2018-06-09 06:23] LABS: ALBUMIN 2.7 g/dL (3.4-5.0); CALCIUM 8.7 mg/dL (8.5-10.1); CREATININE 0.7 mg/dL (0.6-1.3); MAGNESIUM 1.9 mg/dL (1.8-2.4); POTASSIUM 4.2 mmol/L (3.5-5.1); TOTAL BILIRUBIN 0.5 mg/dL (<0.1-1.0); TOTAL PROTEIN 5.9 g/dL (6.4-8.2)
[2018-06-09 06:25] LABS: TROPONIN-I LEVEL 3.95 ng/mL (<0.06)
[2018-06-09] MEDS ORDERED: EFFIENT10 MG PO (07:26)
[2018-06-09] MEDS ORDERED: FISH OIL 1,001000 M2 PO (07:26)
[2018-06-09] MEDS ORDERED: NITROGLYCERIN0.4 MG SUBLING (07:26)
--- NOTE | 2018-06-09 14:33 | NUR ---
AFTER WORKING WITH CARDIAC REHAB NURSE, PATIENT UP IN CHAIR. CARDIAC REHAB NURSE AND THIS RN IN ROOM. PATIENT'S HR INCREASED TO 130S NOTED TO BE SINUS TACHYCARDIA. PATIENT DIAPHORETIC AND APPEARED TO HAVE SYNCOPAL EPISODE. DR SINGER NURSE PAGED, AWAITING RESPONSE. CASE MANAGEMENT IN AFTER INCIDENT TO TALK TO PATIENT ABOUT BRILLINTA SAMPLES. PATIENT ABLE TO HOLD CONVERSATION AND LESS DIAPHORETIC, BUT STILL FEELS DIZZY.
--- NOTE | 2018-06-09 14:51 | NUR ---
SPOKE WITH PT REGARDING MEDICATIONS FOR HOME. SHE IS CONCERNED ABOUT THE COSTS OF THE MEDS. CALLED IN RX FOR SL NTG TO [facility] [address] [phone]), IT WILL BE PAID FOR BY THE HOSPITAL. PER DR. SINGER, STOP THE EFFIENT AND START BRILINTA. SAMPLES OF BRILINTA FOR 2 WEEKS GIVEN TO THE PT ALONG WITH SEVERAL DIFFERENT CO-PAY CARDS. SHE WILL CHECK WITH HER PHARMACY TO SEE IF ANY OF THE CO-PAY CARDS WILL WORK FOR HER. CALLED IN RX FOR BRILINTA TO [facility] [phone]), SHE CAN PICK THAT UP AFTER HER SAMPLES. TOLD PT THAT IF THE CO-PAY CARDS DON'T WORK FOR ON-GOING BRILINTA, THEN SHE CAN CALL DR. SINGER OFFICE AND DISCUSS WITH THEM. PER DR. SINGER NURSE, THEY MAY BE ABLE TO GIVE HER MORE SAMPLES, OR CAN SWITCH HER TO PLAVIX WHICH WOULD BE AFFORDABLE FOR HER. GAVE PT A LIST OF IN-NETWORK PROVIDERS FOR HER INSURANCE COMPANY, BOTH A LIST OF HOSPITALS AND OF CARDIOLOGISTS. DR SINGER WILL SEE HER IN THE OFFICE ONCE IN FOLLOW UP BUT THEN SHE WILL NEED TO FIND AN IN NETWORK [employer] PICKER. PT SAID SHE PLANS TO SEE DR. CINDY SANCHEZ FOR HER PCP BUT SHE HASN'T BEEN ABLE TO SEE HER YET.
--- NOTE | 2018-06-09 15:00 | NUR ---
JASE CHUNG RETURNED CALL AND SPOKE WITH DR SINGER. INFORMED THEM THAT PATIENT DID HAVE NEAR SYNCOPAL EPISODE, WITH ASSOCIATED CHEST PAIN, INCREASED HR, AND DIAPHORESIS. PHYSICIAN STATED THAT PATIENT NEEDED TO BE MOVING AROUND MORE. ORDERS TO BE UP IN CHAIR NOW AND STAT NORMAL SALINE AT 100 ML/HR. STATED PATIENT STILL COULD GO HOME THIS EVENING AFTER DINNER. PATIENT UNABLE TO AFFORD BLOOD THINNER. PER DR SINGER, LOADING DOSE OF BRILLINTA GIVEN TODAY. SAMPLES GIVEN TO PATIENT BY CASE MANAGEMENT TO BE GIVEN BID AT HOME. REFER TO CASE MANAGEMENT NOTE.
--- NOTE | 2018-06-09 17:01 | NUR ---
PATIENT TRANSFERING TO ROOM 221. REPORT GIVEN TO ELIN WORTHINGTON. DR SINGER IN PROCEDURE, PATIENT WOULD LIKE TO SEE DR SINGER BEFORE DISCHARGING.
--- NOTE | 2018-06-09 17:10 | NUR ---
PT ARRIVED ON THE UNIT FROM ICU. AGREE WITH BURNEYDADYS ASSESSMENT. VSS WNL. PT IS AFEBRILE. PTS BS 160 10 U SS GIVEN AT DINNER. PT IS A&O WITH NO C/O PAIN.
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
--- NOTE | 2018-06-10 02:31 | NUR ---
PATIENT RESTING IN BED, UP TO BATHROOM AD BRITTANEY WITH SLOW STEADY GAIT. NO COMPLAINTS OF PAIN, DISCOMFORT, OR SOA. PATIENT CONT. IVF AT 100 HOUR. IV IN RT AC STARTED LEEKING. NEW ONE STARTED IN RT FA. CONT. PLAN OF CARE. NO SIGN OF DISTRESS.
[2018-06-10 04:00] VITALS: BP 134/71
[2018-06-10 08:00] VITALS: BP 125/59
[2018-06-10] MEDS ORDERED: BRILINTA60 MG PO (11:00)
--- NOTE | 2018-06-10 11:00 | NUR ---
Faxed signed Rx auth form to [facility], provided Pt with [facility] address. Family to transport home.
[2018-06-10 11:09] LABS: GLYCOHEMOGLOBIN (HGB A1C) 9.2 % (4.8-5.6)
--- NOTE | 2018-06-10 17:17 | NUR ---
ORDER RECEIVED TO DISCHARGE VALERIE GOLDEN TO SELF CARE. MED REC, MEDICATION EDUCATION, STROKE EDUCATION AND NEED FOR FOLLOW UP APPOINTMNETS WITH PRIMARY CARE AND CARDIOLOGY FOR POST CARDIAC STENT PLACEMENT. IV AND TELEMETRY PACK REMOMVED. PATIENT GIVEN EDUCATION FROM CARDIAC REHAB, DIETITIAN, AND CARDIOLOGY PRIOR TO DISCHARGE. EPI WAS TRANSPORTED VIA WHEELCHAIR BY RN AND TAKEN HOME BY DAUGHTER. DC TIME, 1200.
--- NOTE | 2018-06-13 12:21 | CARD ---
[address] [address] CARDIAC CATH REPORT Name: FAUSTINO JACKSON Room: [address]#: [id number] Admission: 06/07/18 Attend Phys: Lore Chapman MD Discharge: 06/10/18 Date of : 53 Report #: [id number] THIS REPORT FOR: //name// APPROVED REPORT Study performed: 06/07/2018 17:53:17 Patient Details Patient Status: ED Room #: The patient is a 63 year-old female Event Personnel Ben Pack Shot Man, Ben Pack Content Coordinator, Sylvia Yu RN Claims Service Adjustor, Keya Chan Monitor Procedures Performed Art Access - R femoral artery* Left Heart Cath w/or w/o Coronaries [id number] [facility] [address] w/wo Plasty Single CIRC [id number] [address] Place w/wo Plasty Single RCA [id number] , Selective Right and Left Coronary Angiograph Indication Non-STEMI Risk Factors Hypercholesterolemia, Hypertension Previous Procedures/Diagnoses Previous PCI Admission/Lab Medications/Medications given during procedure Aspirin, Platelet Aff. Inhib., Angiomax bolus and infusion Procedure Narrative The patient was brought urgently to the Cardiac Catheterization Laboratory and was prepped and draped in a sterile manner. The right femoral was infiltrated with 2% Lidocaine subcutaneous anesthesia. A 6fr Ultimum Sheath sheath was inserted into the right femoral artery. Coronary angiography was performed using coronary diagnostic catheters. The right coronary system was accessed and visualized with a Diagnostic 6fr JR 4 catheter. The left coronary system was accessed and visualized with a Diagnostic 6fr JL 4 catheter. The left ventricle was accessed and visualized with a Diagnostic catheter. Left ventricular/Aortic Valve [place] [address] CARDIAC CATH REPORT Name: FAUSTINO JACKSON Room: [address]#: [id number] Admission: 06/07/18 Attend Phys: Lore Chapman MD Discharge: 06/10/18 Date of : 53 Report #: [id number] pullback. Pre-demployment femoral angiogram was performed . Closure device was deployed with a 6 Fr Angioseal STS 6Fr. The patient tolerated the procedure well and there were no complications associated with the procedure. There was no hematoma. Fluoro Time: 17.9 minutes Dose: DAP 477611 cGycm2 2431.97 mGy Contrast Type and Amount: Visipaque 390 ml Coronary Angiography The patient's coronary anatomy is right dominant. 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 The left ventricular pressure is 112/6 mmHg with a mean of mmHg. The left ventricular end diastolic pressure is 13 mmHg. PCI Technique Lesion Percutaneous coronary intervention was performed on the proximal right coronary artery. The lesion stenosis prior to intervention was 90% with AVELINO 3 flow. A 6F AR 1 Guide Catheter was used to engage the ostium. A IG: ProwaterFlex 180CM Interventional Guidewire was used to cross the lesion. BALLOON DILATION A Balloon catheter Trek RX 2.5 X 12 was inserted and inflated up to 10.00atm for 10seconds. STENT DEPLOYMENT A drug-eluting stent Xience Alpine RX 2.5X15 was inserted and inflated up to 12.00atm for 9seconds. Additional Inflation: 16.00atm for 10seconds. Additional Inflation: 15.00atm for 7seconds. POST STENT DEPLOYMENT BALLOON DILATION A Balloon catheter NC Trek RX 2.75 X 8 was inserted and inflated up to 14.00atm for 8seconds. Additional Inflation: 15.00[place] [address] CARDIAC CATH REPORT Name: DOC JACKSONMIRYAM MATTA Room: [address]#: [id number] Admission: 06/07/18 Attend Phys: Lore Chapman MD Discharge: 06/10/18 Date of : 53 Report #: [id number] 5seconds. Final angiography reveals 0 % stenosis with AVELINO 3 flow. PCI Technique Lesion 2 Percutaneous Coronary Intervention was performed on the proximal circumflex artery segment (anomalous origin). Percutaneous coronary intervention was performed on the proximal circumflex. The lesion stenosis prior to intervention was 90% with AVELINO 3 flow. A 6F 3DRC Guide Catheter was used to engage the ostium. A BMW Interventional Guidewire was used to cross the lesion. Balloon Dilation A Balloon catheter Trek RX 2.25 X 12 was inserted and inflated up to 14.00atm for 11seconds. Additional Inflation: 16.00atm for 8seconds. Stent Deployment A drug-eluting stent Xience Alpine RX 2.5X18 was inserted and inflated up to 12.00atm for 7seconds. Additional Inflation: 14.00atm for 8seconds. 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 STENT DEPLOYMENT A drug-eluting stent Xience Alpine RX 2.5X8 was inserted and inflated up to 14.00atm for 8seconds. Additional Inflation: 15.00atm for 5seconds. 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 D large dominant right coronary artery with 90% proximal stenosis and [address] [address] CARDIAC CATH REPORT Name: FAUSTINO JACKSON Room: [address] IN M.R.#: [id number] Admission: 06/07/18 Attend Phys: Lore Chapman MD Discharge: 06/10/18 Date of : 53 Report #: [id number] 50% proximal posterior descending branch narrowing #2 normal left-sided hemodynamics study #3 successful percutaneous coronary intervention with deployment of a drug-eluting stent at the site of 90% proximal right coronary stenosis with 0% residual narrowing and AVELINO-3 flow the distal vessel #4 successful percutaneous coronary intervention to the nondominant anomalous origin circumflex with deployment of drug-eluting stent at the site of 90% proximal stenosis with 0% residual narrowing and AVELINO-3 flow the distal vessel Recommendations Cardiac Risk Reduction Program Aggressive Medical Therapy Medications Administered Aspirin (any) Prasugrel Diagnostic Cath Approved by: Ben Pack MD Date/Time: 06/13/18 at 1219 hrs. <ELECTRONICALLY SIGNED> By: Ben Pack MD, FACC 06/13/18 1221 1221 1221Ben Pack MD, FACC /INF
== END 2018-06-10 11:46 | disposition home or self-care (01) | DRG 246 ==
LOC: M.ERS 16:38 → M.CL 16:38 → M.TBA-CV 17:47 → M.ICU 17:47 → M.2W 06-09 17:23
PROVIDERS: Personal Emergency Response Attendant; ADMIT Internal Medicine
DX: I21.4 Non-ST elevation (NSTEMI) myocardial infarction (principal); E11.00 Type 2 diabetes mellitus with hyperosmolarity without nonketotic hyperglycemic-hyperosmolar coma (NKHHC); Z68.41 Body mass index [BMI] 40.0-44.9, adult; I25.10 Atherosclerotic heart disease of native coronary artery without angina pectoris; E11.9 Type 2 diabetes mellitus without complications; J44.9 Chronic obstructive pulmonary disease, unspecified; I11.0 Hypertensive heart disease with heart failure; I50.9 Heart failure, unspecified; K21.9 Gastro-esophageal reflux disease without esophagitis; M79.7 Fibromyalgia; E11.65 Type 2 diabetes mellitus with hyperglycemia; E78.5 Hyperlipidemia, unspecified; F43.9 Reaction to severe stress, unspecified; E66.01 Morbid (severe) obesity due to excess calories; Z79.899 Other long term (current) drug therapy; Z79.82 Long term (current) use of aspirin; I25.2 Old myocardial infarction; Z95.5 Presence of coronary angioplasty implant and graft; Z90.49 Acquired absence of other specified parts of digestive tract; Z87.01 Personal history of pneumonia (recurrent); Z98.42 Cataract extraction status, left eye; Z98.41 Cataract extraction status, right eye; Z88.1 Allergy status to other antibiotic agents; Z88.6 Allergy status to analgesic agent; Z88.0 Allergy status to penicillin; Z87.891 Personal history of nicotine dependence

== ENCOUNTER 2018-11-23 17:37 | Inpatient (IN) | payer OTHER ==
[~2018-11-23] VITALS: Ht 167.6 cm; Wt 121.1 kg
[~2018-11-23 17:37] MED LIST changes: +BRILINTA60 MG PO; +EFFIENT10 MG PO; +FISH OIL 1,001000 M2 PO; +NITROGLYCERIN0.4 MG SUBLING
[2018-11-23 17:49] VITALS: BP 185/104
[2018-11-23] MEDS ORDERED: LASIX 40 MG TAB40 M2 PO (17:52)
[2018-11-23 19:18] LABS: ABSOLUTE BASOPHILS 0.1 thou/uL (0.0-0.2); ABSOLUTE EOSINOPHILS 0.1 thou/uL (0.0-0.7); ABSOLUTE LYMPHOCYTES 1.8 thou/uL (0.8-5.3); ABSOLUTE MONOCYTES 0.4 thou/uL (0.0-1.2); ABSOLUTE NEUTROPHILS 3.7 thou/uL (1.6-8.1); BASOPHILS 1.2 %; EOSINOPHILS 1.2 %; HEMATOCRIT 43.2 % (37.0-47.0); HEMOGLOBIN 14.8 gm/dL (12.0-15.0); LYMPHOCYTES 29.8 %; MCH 30.4 pg (26.0-34.0); MCHC 34.3 g/dL (28.0-37.0); MCV 88.7 fL (80.0-100.0); MONOCYTES 6.7 %; MPV 7.9 fl. (7.2-11.1); NUCLEATED RBCS 0 /100WBC; PLATELET COUNT* 259 thou/uL (150-400); POLYS 61.1 %; RBC 4.87 mil/uL (4.20-5.00); RDW-CV 12.8 % (10.5-14.5); WBC 6.1 thou/uL (4.0-11.0)
[2018-11-23 19:25] LABS: ANION GAP 7 mmol/L (7-16); BUN 18 mg/dL (7-18); CALCIUM 9.3 mg/dL (8.5-10.1); CHLORIDE 97 mmol/L (98-107); CO2 29 mmol/L (21-32); GLUCOSE 474 mg/dL (70-99); POTASSIUM 3.7 mmol/L (3.5-5.1); SODIUM 133 mmol/L (136-145)
[2018-11-23 19:28] LABS: APTT 23.8 Seconds (25.0-31.3); PROTIME 10.4 Seconds (9.20-11.50)
[2018-11-23 19:37] LABS: ALBUMIN 3.4 g/dL (3.4-5.0); ALKALINE PHOSPHATASE 96 U/L (46-116); NT-PRO BRAIN NAT PEPTIDE 75 pg/mL (<300); SGOT 15 U/L (15-37); SGPT 27 U/L (30-65); TOTAL BILIRUBIN 0.4 mg/dL (<0.1-1.0); TOTAL PROTEIN 7.1 g/dL (6.4-8.2); TROPONIN-I LEVEL <0.06 ng/mL (<0.06)
[2018-11-23 20:58] VITALS: BP 150/84
[2018-11-23 21:00] VITALS: BP 143/78
[2018-11-23 23:47] VITALS: BP 114/58
[2018-11-24] MEDS ORDERED: KLOR-CON 1010 MEQ PO (03:36)
[2018-11-24 03:57] VITALS: BP 127/68
--- NOTE | 2018-11-24 04:49 | NUR ---
RECEIVED REPORT AND ASSUMED CARE OF PATIENT FROM ER AROUND 2100. PATIENT ARRIVED TO UNIT VIA CART. PATIENT AMBULATED INDEPENDENTLY TO UNIT BED. PATIENT HAD C/O CHEST PAIN 6/10 AND NAUSEA. PATIENT ALSO C/O ANXIETY RELATED TO NUMEROUS RECENT DEATHS, AND ATTENDING A MORNING OF ADMISSION. MEDICATIONS ADMINISTERED PER EMAR WITH RELIEF. VSS ON 2L O2 NC. PATIENT HAS NOT HAD ANY FURTHER C/O AND HAS BEEN SLEEPING MAJORITY OF SHIFT. IVF INFUSING PER ORDERS. NPO FOR CARDIOLOGY CONSULT, PT AWARE AND VERBALIZES UNDERSTANDING. PATIENT INSTRUCTED TO NOTIFY STAFF IMMEDIATELY OF ANY FURTHER CHEST PAIN AND TO CALL FOR ASSISTANCE PRIOR TO AMBULATING DUE TO BEING LIGHTHEADED PRIOR TO ADMISSION. PATIENT COMPLIANT. CALL LIGHT WITHIN REACH
[2018-11-24 07:45] VITALS: BP 119/56
[2018-11-24 12:00] VITALS: BP 115/71
--- NOTE | 2018-11-24 15:53 | NUR ---
Pt is A&O. Resides at home with her brother in law and nephew. Pt is independent with ADLs. Pt, STEVE and nephew share household responsibilities. Pt uses a cane for mobility. Pt states that her on 07/27/18. No hx of HH or SNF. Pt's [employer] insurance lapsed at the end of the year. Pt provided CM with new Medicare care, but her coverage does not begin until 02/15/19, when she turns 64 years old. Following for disposition.
--- NOTE | 2018-11-24 16:28 | CARDNUC ---
[place] [address] CARDIAC NUCLEAR IMAGING REPORT Name: FAUSTINO JACKSON Room: [address] IN [facility]#: [id number] Admission: 11/23/18 Attend Phys: Arabella Berumen Discharge: Date of : 53 Date of Service: 11/24/18 1628 Report #: [id number] THIS REPORT FOR: //name// APPROVED REPORT Imaging Protocol: Stress Tc-99m/Rest Tc-99m 2 days Study performed: 11/24/2018 09:28:00 Indication: Chest pain, Dyspnea, near Syncope, Palpitations Patient Location: In-Patient Room #: 201 Stress Tech: Jyoti Garcia Stress Nurse: Maame Huynh RN NM Tech:MIMI Nash Ht: 5 ft 5 in Wt: 267 lbs BSA: 2.24 m2 BMI: 44.42 Medical History Medical History: Angina, CHF, CAD s/p NC, CAD s/p stent, HTN, Diabetic Insulin Medications: K-Dur, Brilinta, ASA 81 mg, Lasix, NTG Allergies: Prochlorperazine, Metoprolol, Cipro, Atorvastatin, Cephalexin, Penicillins, Codeine, Promethazine, Ezetimibe Cardiac Risk Factors: Age, Diabetes (insulin), FHX of CAD, HTN, CHF. Previous Cardiac Procedures: Myocardial infarction, PCI Pretest Chest Pain Characteristics: No chest pain Exercise History: Sedentary Physical Disabilities: Legs, Knees, BMI. Meds Held (24 hrs): NTG Meds Held (48 hrs): NTG Pharmacologic Stress Pharmacologic stress test was performed by injecting Regadenoson 0.4 mg IV push over 10-15 seconds immediately followed by the intravenous injection of 35.4 mCi of Tc-99m Sestamibi. Time of stress injection: 1335 Date: 11/24/2018 Time of stress imagin Administration Route: IV Administration Site: Right Wrist Gated Stress SPECT was performed 40 minutes after stress injection. The images were gated to evaluate regional wall motion and calculate left [place] [address] CARDIAC NUCLEAR IMAGING REPORT Name: FAUSTINO JACKSON Room: [address]#: [id number] Admission: 11/23/18 Attend Phys: Arabella Berumen Discharge: Date of : 53 Date of Service: 11/24/18 1628 Report #: [id number] Prone imaging was performed. Stress Test Details Stress Test: Pharmacologic stress testing performed using 0.4 mg of regadenoson per 5 mL given IV over 10 seconds. Reason for pharmacologic stress test: physical limitation, leg and knee problems/weakness. HR Max Heart Rate (APMHR): 156 bpm Resting HR: 84 bpm Target HR (85% APMHR): 132 bpm Max HR Achieved: 111 bpm % of APMHR: 71 Recovery HR: 92 bpm BP Resting BP: 108/63 mmHg Max BP: 124/65 mmHg Recovery BP: 115/71 mmHg ECG Resting ECG: Sinus Rhythm Stress ECG: Sinus Rhythm ST Change: None Arrhythmia: None Recovery ECG: Sinus Rhythm Recovery ST Change: None Recovery Arrhythmia: None Clinical Reason for Termination: Completed protocol Stress Symptoms: SOA Exercise duration: 0 min 0 sec Exercise capacity: 1.00 METs The patient tolerated Lexiscan infusion without symptoms. Nurse Comments 63 year old female present in wheelchair r/t leg and knee problems/pain and reported recent CP and SOA, Near syncope, palpations and NC and PCI approx. 6 months ago. Patient reported feeling very anxious and fearful, staff educated patient on test and safety precautions taken. Patient unable to walk on treadmill due to SOA and knee problems, did tolerate sitting Lexiscan well. Recovery unremarkable. Patient taken via wheelchair by staff to Nuclear Medicine for images. Patient stable with no complaints at that time[place] [address] CARDIAC NUCLEAR IMAGING REPORT Name: FAUSTINO JACKSON Room: [address] [place] .#: [id number] Admission: 11/23/18 Attend Phys: Arabella Berumen Discharge: Date of : 53 Date of Service: 11/24/18 1628 Report #: [id number] The baseline 12-lead EKG show sinus rhythm without significant ST or T wave abnormality. EKGs obtained during and post Lexiscan infusion show sinus rhythm with no significant ST or T wave changes when compared baseline. There were no stress-induced arrhythmias. Study Quality Study: Good Study Data Post stress, the left ventricular ejection was 65%.. Perfusion Post stress myocardial perfusion images show uniform uptake of the radioisotope throughout the myocardium. There were no defects to suggest infarct or ischemia. Wall Motion Normal left ventricular wall motion. Nuclear Conclusion ECG Findings: negative for ischemia Clinical Findings: negative for ischemia Nuclear Findings: negative for ischemia Exercise Capacity: not assessed Left Ventricular Function: normal Risk Study: low Myocardial perfusion images show no defect to suggest infarct or ischemia. Left ventricular systolic function appears normal on gated studies. This is a low risk study. <Conclusion> The baseline 12-lead EKG show sinus rhythm without significant ST or T wave abnormality. EKGs obtained during and post Lexiscan infusion show sinus rhythm with no significant ST or T wave changes when compared baseline. There were no stress-induced arrhythmias. <ELECTRONICALLY SIGNED> By: Jamarcus Ly MD, FACC 11/24/18 1628 1628 1628 Jamarcus Ly MD, FACC /INF
[2018-11-24 16:55] VITALS: BP 114/44
--- NOTE | 2018-11-24 16:55 | EKG ---
[place] [address] ELECTROCARDIOGRAM REPORT Name: FAUSTINO JACKSON Room: [address] ADM IN .R.#: [id number] Admission: 11/23/18 Attend Phys: Montez Cardona Discharge: Date of : 53 Report #: [id number] THIS REPORT FOR: //name// [facility] ED Test Date: 2018-11-23 Test Time: 17:45:00 Pat Name: FAUSTINO JACKSON Department: Room: [facility] Gender: F Machinist Mate: PETRONA : 1955 Requested By: Maya Tovar Order Number: [id number] MD: Jamarcus Ly Measurements Intervals [place] Rate: 107 P: 52 NE: 143 QRS: 11 QRSD: 90 T: 54 QT: 350 QTc: 467 Interpretive Statements Sinus tachycardia Compared to ECG 06/08/2018 07:54:16 Sinus rhythm no longer present Electronically Signed On 11-24-2018 16:55:36 LINK TRAINER by Jamarcus Ly [email or web address] <ELECTRONICALLY SIGNED> By: Jamarcus Ly MD, [facility] 11/24/18 1655 1745 1745 Jamarcus Ly MD, [facility] /EPI
--- NOTE | 2018-11-24 16:58 | EKG ---
[place] [address] ELECTROCARDIOGRAM REPORT Name: GYPSYWILNERFAUSTINO SIGRID Room: [address] ADM IN .R.#: [id number] Admission: 11/23/18 Attend Phys: Montez Cardona Discharge: Date of : 53 Report #: [id number] THIS REPORT FOR: //name// [facility] Test Date: 2018-11-24 Test Time: 00:13:21 Pat Name: FAUSTINO JACKSON Department: Room: [address] Gender: F Valve Inserter: SHERWIN : 1955 Requested By: Maya Tovar Order Number: [id number] Subhash MD: Jamarcus Ly Measurements Intervals [place] Rate: 71 P: 45 [place]: 169 QRS: 0 QRSD: 95 T: 30 QT: 412 QTc: 448 Interpretive Statements Sinus rhythm Compared to ECG 06/08/2018 07:54:16 No significant changes Electronically Signed On 11-24-2018 16:58:28 CHART WRITER by Jamarcus Ly [email or web address] <ELECTRONICALLY SIGNED> By: Jamarcus Ly MD, [facility] 11/24/18 1658 0013 Jamarcus Ly MD, [facility] /EPI
--- NOTE | 2018-11-24 17:01 | EKG ---
[place] [address] ELECTROCARDIOGRAM REPORT Name: GYPSYJANEY DARBYIVORY SIGRID Room: [address] ADM IN .R.#: [id number] Admission: 11/23/18 Attend Phys: Montez Cardona Discharge: Date of : 53 Report #: [id number] THIS REPORT FOR: //name// [facility] Test Date: 2018-11-24 Test Time: 05:24:21 Pat Name: FAUSTINO JACKSON Department: Room: [address] Gender: F President Ceo & Founder: : 1955 Requested By: Maya Tovar Order Number: [id number] Subhash MD: Jamarcus Ly Measurements Intervals [place] Rate: 74 P: 56 [place]: 169 QRS: 12 QRSD: 93 T: 36 QT: 417 QTc: 463 Interpretive Statements Sinus rhythm Compared to ECG 06/08/2018 07:54:16 No significant changes Electronically Signed On 11-24-2018 17:00:54 COMPOUND MIXER by Jamarcus Ly [email or web address] <ELECTRONICALLY SIGNED> By: Jamarcus Ly MD, [facility] 11/24/18 1700 3 Jamarcus Ly MD, [facility] /EPI
--- NOTE | 2018-11-24 17:46 | NUR ---
PT VSS THIS SHIFT WITH INCREASED BLOOD SUGARS. PT TOLERATING O2 AT 2L PER NC AND SBA FOR AMBULATION. PT WENT FOR AND TOLERATED STRESS TEST TODAY. CARDIOLOGY AND CASE MANAGEMENT ARE CONSULTED. PT TOLERATING DM, HEART HEALTHY DIET THIS SHIFT. PT HAS QUESTIONS REGARDING NEW MEDICATIONS MENTIONED BY DR GONZALEZ THIS SHIFT AND U CALL HAS BEEN SENT TO FOLLOW UP WITH PHYSICIAN. IV FLUIDS ARE BEING HELD AT THIS TIME DUE TO PT HX OF CHF AND TOLERATING DIET AT THIS TIME. WILL FOLLOW UP WITH MD WHEN CALL IS RETURNED.
[2018-11-24 19:09] LABS: GLYCOHEMOGLOBIN (HGB A1C) 12.4 % (4.8-5.6)
[2018-11-24 20:00] VITALS: BP 112/59
[2018-11-25] VITALS: BP 96/55
[2018-11-25 04:00] VITALS: BP 114/56
--- NOTE | 2018-11-25 05:34 | NUR ---
patient remains without chest pain or discomfort this shift. patient reported anxiety during assessment and states she is worried about the new medications the physician wants her to be on, as she "has alot of allergies and is cautious about medications and their side effects." carenotes on the requested medications printed and provided to patient to review. she states she will discuss them further with the physician. anxiety relieved with prn medication and reassurance. vss on room air. call light within reach
[2018-11-25 05:36] LABS: HEMATOCRIT 40.9 % (37.0-47.0); HEMOGLOBIN 14.1 gm/dL (12.0-15.0); MCH 30.7 pg (26.0-34.0); MCHC 34.3 g/dL (28.0-37.0); MCV 89.5 fL (80.0-100.0); MPV 8.4 fl. (7.2-11.1); RBC 4.57 mil/uL (4.20-5.00); WBC 5.1 thou/uL (4.0-11.0)
[2018-11-25 05:50] LABS: ANION GAP 8 mmol/L (7-16); BUN 15 mg/dL (7-18); CALCIUM 8.6 mg/dL (8.5-10.1); CHLORIDE 103 mmol/L (98-107); CO2 26 mmol/L (21-32); CREATININE 0.7 mg/dL (0.6-1.3); GLUCOSE 283 mg/dL (70-99); POTASSIUM 4.1 mmol/L (3.5-5.1); SODIUM 137 mmol/L (136-145)
[2018-11-25 06:14] LABS: CHOLESTEROL 248 mg/dL (<200); HDL CHOLESTEROL 38 mg/dL (>40); LDL CHOLESTEROL 151 mg/dL (<100); TC:HDL 6.5 Ratio (Not establshd); TRIGLYCERIDE 296 mg/dL (<150); VLDL 59 mg/dL (<40)
[2018-11-25 06:16] LABS: SERUM ASSESSMENT Clear
[2018-11-25 08:05] VITALS: BP 131/70
--- NOTE | 2018-11-25 10:24 | NUR ---
RECEIVED REPORT FROM MACY AND ASSUMED CARE OF PT @ 9008.PT IS A/O X4,VSS,TRACING SR ON THE MONITOR.ASSESSMENT CHARTED.IV PATENT AND SALINE LOCKED.PT IS CALM AND COOPERATIVE WITH NO C/O PAIN AT TIME OF ASSESSMENT.PT UP AD BRITTANEY IN ROOM.UA COLLECTED.PT LEFT RESTING IN BED WITH CALL LIGHT WITHIN REACH.WILL CONTINUE TO MONITOR.
[2018-11-25 12:00] VITALS: BP 141/74
[2018-11-25] MEDS ORDERED: LOPRESSOR25 PO (12:58)
[2018-11-25] MEDS ORDERED: GLUCOPHAGE XR500 MG PO (12:58)
[2018-11-25] MEDS ORDERED: LEVEMIR SUBQ (12:59)
[2018-11-25 14:36] VITALS: BP 141/74
--- NOTE | 2018-11-25 14:56 | NUR ---
PT OK FOR DISCHARGE.DISCHARGE PAPERWORK COMPLETED AND GIVEN TO PT.SCRIPTS GIVEN WITH EDUCATION.IV REMOVED.HEART MONITOR REMOVED AND RETURNED TO NURSING STATION.BLOOD GLUCOSE MONITOR PROVIDED TO PT.CAB VOUCHER SET UP WITH CASE MANAGEMENT.ALL PERSONAL BELONGINGS PACKED AND TAKEN WITH PT.PT WHEELED OUT BY NURSING STAFF TO CAB.
--- NOTE | 2018-11-26 08:18 | CON ---
[address] [address] CONSULTATION Name: FAUSTINO JACKSON Room: [address] IN M.R.#: [id number] Admission: 11/23/18 Attend Phys: Montez Cardona Discharge: 11/25/18 Date of : 53 Report #: [id number] THIS REPORT FOR: //name// CC: Raven Car INDICATION: Chest pain. HISTORY OF PRESENT ILLNESS: The patient is a very pleasant 63-year-old white female with history of coronary artery disease. 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 She had had previous stenting to the proximal LAD. She had nonocclusive residual disease at the time. She returns with palpitations, near syncope and chest pain. She states she had midsternal chest pain after her heart rate was elevated. She took her blood pressure and noted it to be low with a systolic blood pressure in the 90s. She felt near syncopal. The pain lasted for some time and radiated to the right jaw. The pain then finally resolved. Initial troponin here is less than 0.04. She is without other complaint at this time. PAST MEDICAL HISTORY: 1. Coronary artery disease. 2. Diabetes. 3. Obesity. 4. Hypertension. 5. SVT with previous ablation. 6. Hyperlipidemia. ALLERGIES: STATIN DRUGS, CODEINE, ZETIA, METOPROLOL and PENICILLIN. FAMILY HISTORY: Positive for coronary artery disease. SOCIAL HISTORY: The patient is . She lives in [place]. She quit smoking many years ago. She does not drink alcohol. CURRENT MEDICATIONS: Aspirin 81 mg daily, furosemide 40 mg daily, Nitrostat p.r.n., potassium chloride 10 mEq b.i.d., Brilinta 90 mg b.i.d. REVIEW OF SYSTEMS: NEUROLOGIC: She denies convulsions, seizures or focal paralysis. GENERAL: There is no unexplained weight loss. She denies fever. RESPIRATORY: She does have a cough that is minimally productive. She denies underlying [place] [address] CONSULTATION Name: FAUSTINO JACKSON Room: [address]#: [id number] Admission: 11/23/18 Attend Phys: Montez Cardona Discharge: 11/25/18 Date of : 53 Report #: [id number] CARDIAC: As outlined above. ENDOCRINE: She has diabetes. She denies thyroid disease. GASTROINTESTINAL: No nausea, vomiting, hematemesis, melena or hematochezia. GENITOURINARY: No dysuria or hematuria. HEMATOLOGIC AND LYMPHATIC: No history of anemia, bleeding disorder or cancer. ALLERGY AND IMMUNOLOGIC: She has multiple medical allergies outlined above. PSYCHIATRIC: No depression. She does have some anxiety. MUSCULOSKELETAL: She has arthritis without connective tissue diseases. SKIN: No recent rashes, hives or chronic skin conditions. EYES: She does wear glasses. She has no acute change in vision. EARS, NOSE, MOUTH, THROAT: She denies epistaxis or dentures. PHYSICAL EXAMINATION: VITAL SIGNS: Stable. Blood pressure 127/68, pulse 74 and regular. GENERAL: Just moderately obese white female, in no distress. HEENT: Extraocular muscles intact. Mucous membranes moist. NECK: Shows no jugular venous distention. There are no carotid bruits. CHEST: Reveals clear lung redman without wheezes or rales. CARDIAC: Reveals regular rhythm, normal S1 and S2. I do not appreciate gallop or murmur. ABDOMEN: Reveals normal bowel sounds. The abdomen is soft, nontender. EXTREMITIES: Shows no edema. Peripheral pulses are 2+ and easily palpable. SKIN: Warm and dry. EKG shows sinus rhythm with no acute ST or T-wave abnormalities. LABORATORY DATA: Labs are reviewed. Troponins are less than 0.06 on 3 separate occasions. IMPRESSION AND RECOMMENDATIONS: 1. Chest pain in patient with history of coronary artery disease. We will proceed with noninvasive stress testing. 2. Coronary artery disease. Continue aspirin and Brilinta. 3. Hyperlipidemia. The patient intolerant to STATINS and ZETIA. 4. Hypertension. Blood pressure adequately controlled at present. <ELECTRONICALLY SIGNED> By: Jamarcus Ly MD, FACC 11/26/18 0818 0945 [id number] Ly MD, FACC /nt
== END 2018-11-25 15:23 | disposition home or self-care (01) | DRG 880 ==
LOC: M.ERS 17:37 → M.TBA-ER 19:48 → M.2W 19:48
PROVIDERS: Family Medicine; Personal Emergency Response Attendant; ADMIT Internal Medicine
DX: F41.9 Anxiety disorder, unspecified (principal); Z68.41 Body mass index [BMI] 40.0-44.9, adult; I50.32 Chronic diastolic (congestive) heart failure; I25.10 Atherosclerotic heart disease of native coronary artery without angina pectoris; J44.9 Chronic obstructive pulmonary disease, unspecified; I11.0 Hypertensive heart disease with heart failure; K21.9 Gastro-esophageal reflux disease without esophagitis; M79.7 Fibromyalgia; E66.9 Obesity, unspecified; I48.91 Unspecified atrial fibrillation; E11.65 Type 2 diabetes mellitus with hyperglycemia; Z86.718 Personal history of other venous thrombosis and embolism; Z87.01 Personal history of pneumonia (recurrent); I25.2 Old myocardial infarction; Z95.5 Presence of coronary angioplasty implant and graft; Z90.49 Acquired absence of other specified parts of digestive tract; Z79.82 Long term (current) use of aspirin; Z79.899 Other long term (current) drug therapy; Z88.5 Allergy status to narcotic agent; Z88.0 Allergy status to penicillin; Z88.8 Allergy status to other drugs, medicaments and biological substances; Z82.49 Family history of ischemic heart disease and other diseases of the circulatory system

== ENCOUNTER 2018-12-18 12:55 | Emergency (ER) | payer OTHER ==
[~2018-12-18] VITALS: Ht 167.6 cm; Wt 121.6 kg
[~2018-12-18 12:55] MED LIST changes: +GLUCOPHAGE XR500 MG PO; +LOPRESSOR25 PO
[2018-12-18 13:34] LABS: ABSOLUTE BASOPHILS 0.1 thou/uL (0.0-0.2); ABSOLUTE EOSINOPHILS 0.1 thou/uL (0.0-0.7); ABSOLUTE LYMPHOCYTES 1.8 thou/uL (0.8-5.3); ABSOLUTE MONOCYTES 0.6 thou/uL (0.0-1.2); ABSOLUTE NEUTROPHILS 5.7 thou/uL (1.6-8.1); HEMATOCRIT 44.2 % (37.0-47.0); HEMOGLOBIN 15.4 gm/dL (12.0-15.0); LYMPHOCYTES 22.1 %; MCV 88.7 fL (80.0-100.0); MONOCYTES 7.1 %; MPV 7.7 fl. (7.2-11.1); NUCLEATED RBCS 0 /100WBC; PLATELET COUNT* 298 thou/uL (150-400); POLYS 68.8 %; RBC 4.98 mil/uL (4.20-5.00); RDW-CV 12.8 % (10.5-14.5); WBC 8.2 thou/uL (4.0-11.0)
[2018-12-18 13:44] LABS: ANION GAP 7 mmol/L (7-16); BUN 18 mg/dL (7-18); CALCIUM 9.3 mg/dL (8.5-10.1); CHLORIDE 97 mmol/L (98-107); CO2 29 mmol/L (21-32); CREATININE 1.1 mg/dL (0.6-1.3); GLUCOSE 376 mg/dL (70-99); POTASSIUM 4.2 mmol/L (3.5-5.1); SODIUM 133 mmol/L (136-145)
[2018-12-18 13:53] LABS: APTT 24.4 Seconds (25.0-31.3); PROTIME 10.7 Seconds (9.20-11.50)
[2018-12-18 13:59] LABS: ALBUMIN 3.4 g/dL (3.4-5.0); ALKALINE PHOSPHATASE 98 U/L (46-116); LIPASE 255 U/L (73-393); NT-PRO BRAIN NAT PEPTIDE 41 pg/mL (<300); SGOT 22 U/L (15-37); SGPT 29 U/L (30-65); TOTAL BILIRUBIN 0.5 mg/dL (<0.1-1.0); TOTAL PROTEIN 7.5 g/dL (6.4-8.2); TROPONIN-I LEVEL <0.06 ng/mL (<0.06)
[2018-12-18] MEDS ORDERED: LEVSIN0.125 MG PO (16:04)
[2018-12-18 16:32] VITALS: BP 108/63
--- NOTE | 2018-12-19 12:40 | EKG ---
[place] [address] ELECTROCARDIOGRAM REPORT Name: JANEY JACKSONIVORY SIGRID Room: [facility]#: [id number] Admission: 12/18/18 Attend Phys: Discharge: 12/18/18 Date of : 53 Report #: [id number] THIS REPORT FOR: //name// [facility] ED Test Date: 2018-12-18 Test Time: 13:02:09 Pat Name: FAUSTINO JACKSON Department: Room: Gender: F Pewter Caster: [facility] : 1955 Requested By: Gabby Salas Order Number: [id number] MD: Dejon Buck Measurements Intervals [place] Rate: 93 P: 54 SD: 132 QRS: 47 QRSD: 89 T: 62 QT: 356 QTc: 443 Interpretive Statements Sinus rhythm Low voltage, precordial leads Compared to ECG 11/24/2018 05:24:21 Low QRS voltage now present Electronically Signed On 12-19-2018 12:40:27 CLIP ON SUNGLASSES ASSEMBLER by Dejon Buck [email or web address] <ELECTRONICALLY SIGNED> By: Dejon Buck MD, [facility] 12/19/18 1240 1302 1302 Dejon Buck MD, [facility] /EPI
--- NOTE | 2018-12-19 12:42 | EKG ---
[place] [address] ELECTROCARDIOGRAM REPORT Name: FAUSTINO JACKSON SIGRID Room: [facility]#: [id number] Admission: 12/18/18 Attend Phys: Discharge: 12/18/18 Date of : 53 Report #: [id number] THIS REPORT FOR: //name// [facility] ED Test Date: 2018-12-18 Test Time: 16:02:14 Pat Name: FAUSTINO JACKSON Department: Room: Gender: F Cooling Tower Operator: Tony CHRISTIAN : 1955 Requested By: Gabby Salas Order Number: [id number] MD: Dejon Buck Measurements Intervals [place] Rate: 91 P: 30 [place]: 139 QRS: -8 QRSD: 87 T: 32 QT: 370 QTc: 456 Interpretive Statements Sinus rhythm Electronically Signed On 12-19-2018 12:42:30 SOLE CONDITIONER by Dejon Buck [email or web address] <ELECTRONICALLY SIGNED> By: Dejon Buck MD, [facility] 12/19/18 1242 1602 1602 Dejon Buck MD, FACC /EPI
== END 2018-12-18 16:38 | disposition home or self-care (01) ==
LOC: M.ERS 12:55
PROVIDERS: Nurse Practitioner Family
DX: R10.11 Right upper quadrant pain (principal); I25.10 Atherosclerotic heart disease of native coronary artery without angina pectoris; E11.9 Type 2 diabetes mellitus without complications; J44.9 Chronic obstructive pulmonary disease, unspecified; Z95.5 Presence of coronary angioplasty implant and graft; Z90.49 Acquired absence of other specified parts of digestive tract; I11.0 Hypertensive heart disease with heart failure; I50.9 Heart failure, unspecified; K21.9 Gastro-esophageal reflux disease without esophagitis; M79.7 Fibromyalgia; F41.9 Anxiety disorder, unspecified; Z79.4 Long term (current) use of insulin; Z88.8 Allergy status to other drugs, medicaments and biological substances; Z88.5 Allergy status to narcotic agent; Z88.0 Allergy status to penicillin

== ENCOUNTER 2019-02-08 20:03 | Emergency (ER) | payer OTHER ==
[~2019-02-08] VITALS: Ht 167.6 cm; Wt 118.8 kg
[~2019-02-08 20:03] MED LIST changes: +LEVSIN0.125 MG PO
[2019-02-08] MEDS ORDERED: VITAMIN D5000 UNIT (20:15)
[2019-02-08 20:24] LABS: URINE BILIRUBIN NEGATIVE (Negative); URINE BLOOD NEGATIVE (Negative); URINE CLARITY CLEAR; URINE COLOR YELLOW; URINE GLUCOSE-RANDOM 3+ (Negative); URINE KETONES NEGATIVE (Negative); URINE LEUKOCYTES-REFLEX NEGATIVE (Negative); URINE NITRITE-REFLEX NEGATIVE (Negative); URINE PROTEIN NEGATIVE (Negative); URINE UROBILINOGEN 0.2 E.U./dl (0.2-1.0)
[2019-02-08] MEDS ORDERED: MACROBID 100 M100 M1 PO (20:58)
[2019-02-08 21:11] VITALS: BP 158/90
== END 2019-02-08 21:12 | disposition home or self-care (01) ==
LOC: M.ERS 20:03
PROVIDERS: Nurse Practitioner Family
DX: N30.90 Cystitis, unspecified without hematuria (principal); I25.10 Atherosclerotic heart disease of native coronary artery without angina pectoris; J44.9 Chronic obstructive pulmonary disease, unspecified; K21.9 Gastro-esophageal reflux disease without esophagitis; M79.7 Fibromyalgia; E11.9 Type 2 diabetes mellitus without complications; I11.0 Hypertensive heart disease with heart failure; I50.9 Heart failure, unspecified; Z95.5 Presence of coronary angioplasty implant and graft; Z79.4 Long term (current) use of insulin; Z88.1 Allergy status to other antibiotic agents; Z87.01 Personal history of pneumonia (recurrent); Z90.49 Acquired absence of other specified parts of digestive tract; Z88.5 Allergy status to narcotic agent; Z88.0 Allergy status to penicillin; Z88.8 Allergy status to other drugs, medicaments and biological substances

== ENCOUNTER → 2019-03-19 | Outpatient (CLI) | payer OTHER ==
[~2019-03-19] MED LIST changes: +VITAMIN D5000 UNIT
== END ==
LOC: M.ULTRA 12:05
DX: M79.89 Other specified soft tissue disorders (principal); M79.604 Pain in right leg; R25.2 Cramp and spasm; I48.91 Unspecified atrial fibrillation; I11.0 Hypertensive heart disease with heart failure; I50.32 Chronic diastolic (congestive) heart failure; I25.10 Atherosclerotic heart disease of native coronary artery without angina pectoris; Z88.8 Allergy status to other drugs, medicaments and biological substances; Z88.5 Allergy status to narcotic agent; Z88.1 Allergy status to other antibiotic agents; Z88.0 Allergy status to penicillin

== ENCOUNTER 2019-05-24 12:54 | Observation (INO) | payer OTHER ==
[~2019-05-24] VITALS: Ht 167.6 cm; Wt 126.6 kg
--- NOTE | ~2019-05-24 | CON ---
[address] [address] CONSULTATION Name: FAUSTINO JACKSON Room: [address] Michelle#: [id number] Admission: 05/24/19 Attend Phys: Jules Melendez MD Discharge: Date of : 53 Report #: [id number] THIS REPORT FOR: //name// CC: Jules Beltran DATE OF SERVICE: 05/25/2019 HISTORY OF PRESENT ILLNESS: This is a 64-year-old female patient for whom a neurological consultation was requested to determine any neurological etiology for the patient's dizziness. She is falling towards the right side. History is not completely clear, but it is associated with nausea and vomiting. I am not even certain about the duration. To me, she tells me it is going on for several days, but has just become worse recently. She indicated that she was once diagnosed with vertigo. I do not know what workup was done. It happened several years ago. REVIEW OF SYSTEMS: Indicate that she had some chest pain. She had severe dizziness. She apparently had some functional abdominal pain. To me, she says she does not have any anxiety or depression. She indicates she does not take any medications for that. She indicated that she has taken some medications in the past for the chest pain and she had some coronary artery disease. She has a history of asthma. Rest of the 14-point review of system is noncontributory. She does complain of some visual disturbances, which is poorly defined. She denies any ENT symptoms. She denies any , musculoskeletal, constitutional, dermatological, hematological, psychiatric, throat, allergic symptom associated with present symptomatology. PAST MEDICAL HISTORY: Positive for coronary artery disease. FAMILY HISTORY: Negative for any early age stroke. SOCIAL HISTORY: She denies the use of any alcohol. Over a period of time, she has been diagnosed with multiple things including coronary artery disease, hypertension, diabetes, stent put in, ablation, remote history of atrial fibrillation, fibromyalgia, TMJ, cataract surgery, vertigo, etc. PHYSICAL EXAMINATION: NEUROLOGIC: The patient is alert, responsive, able to follow simple and complex command. Her speech, concentration, fund of knowledge and memory is at her baseline. Cranial nerves examination, 2-12 looks unremarkable. I did not see any nystagmus. Neuromuscular examination as checked for strength, sensation, reflexes and tones is symmetrical. No cerebellar sign. I could not look [place] [address] CONSULTATION Name: FAUSTINO JACKSON Room: [address]#: [id number] Admission: 05/24/19 Attend Phys: Jules Melendez MD Discharge: Date of : 53 Report #: [id number] GENERAL: She is alert, responsive. She is morbidly obese. NECK: She has no thyroid mass, no carotid bruit. CARDIAC: Examinations appear unremarkable. RESPIRATORY: No marked respiratory difficulty was noticed. VITAL SIGNS: Her blood pressure is 123/67, respirations 17, pulse is 79, temperature is 98.5. EXTREMITIES: Pulses appeared to be palpable. LABORATORY DATA: WBC count is 5.4. Blood sugar was high at 398. Head CT looks unremarkable. IMPRESSION: This patient's symptoms are most likely secondary to non-neurological etiology. ENT pathology will be on the top of the list. However, this patient has a history of atrial fibrillation, the symptoms are pretty persistent and has coronary artery disease and because of that, we will go ahead and do an MRI in this patient to exclude any other pathology. RECOMMENDATIONS: I discussed that aspect with the patient. She indicated she wants to proceed with MRI. We will schedule that and we will check an MRA at the same time to make sure there is no pathology of the posterior fossa. The patient was also discussed with the nurses. By: [id number] Silva MD /nt
[2019-05-24 12:57] VITALS: BP 171/93
[2019-05-24 14:25] LABS: ABSOLUTE EOSINOPHILS 0.1 thou/uL (0.0-0.7); ABSOLUTE LYMPHOCYTES 1.6 thou/uL (0.8-5.3); ABSOLUTE MONOCYTES 0.4 thou/uL (0.0-1.2); ABSOLUTE NEUTROPHILS 3.3 thou/uL (1.6-8.1); BASOPHILS 0.6 %; EOSINOPHILS 1.1 %; HEMATOCRIT 43.1 % (37.0-47.0); HEMOGLOBIN 14.7 gm/dL (12.0-15.0); LYMPHOCYTES 29.8 %; MCH 30.1 pg (26.0-34.0); MCHC 34.1 g/dL (28.0-37.0); MCV 88.4 fL (80.0-100.0); MONOCYTES 7.9 %; MPV 8.3 fl. (7.2-11.1); NUCLEATED RBCS 0 /100WBC; PLATELET COUNT* 227 thou/uL (150-400); POLYS 60.6 %; RBC 4.87 mil/uL (4.20-5.00); RDW-CV 12.7 % (10.5-14.5); WBC 5.4 thou/uL (4.0-11.0)
[2019-05-24 14:28] LABS: ANION GAP 10 mmol/L (7-16); BUN 19 mg/dL (7-18); CALCIUM 9.1 mg/dL (8.5-10.1); CHLORIDE 99 mmol/L (98-107); CO2 29 mmol/L (21-32); CREATININE 0.9 mg/dL (0.6-1.3); GLUCOSE 398 mg/dL (70-99); POTASSIUM 4.1 mmol/L (3.5-5.1); SODIUM 138 mmol/L (136-145)
[2019-05-24 14:33] LABS: APTT 24.9 Seconds (25.0-31.3); PROTIME 10.7 Seconds (9.20-11.50)
--- NOTE | 2019-05-24 14:36 | EKG ---
[place] [address] ELECTROCARDIOGRAM REPORT Name: URMILA JACKSONChristopher SIGRID Room: [facility]#: [id number] Admission: 05/24/19 Attend Phys: Discharge: Date of : 53 Report #: [id number] THIS REPORT FOR: //name// [facility] ED Test Date: 2019-05-24 Test Time: 12:57:04 Pat Name: FAUSTINO JACKSON Department: Room: Gender: F Clinical Specialist: : 1955 Requested By: Maya Tovar Order Number: [id number] Subhash MD: Dejon Buck Measurements Intervals [place] Rate: 90 P: 38 FL: 136 QRS: -4 QRSD: 84 T: 38 QT: 357 QTc: 437 Interpretive Statements Sinus rhythm Compared to ECG 12/18/2018 16:02:14 No significant changes Electronically Signed On 05-24-2019 14:36:45 CDT by Dejon Buck [email or web address] <ELECTRONICALLY SIGNED> By: Dejon Buck MD, [facility] 05/24/19 1436 1257 [facility] Dejon Buck MD, FACC /EPI
[2019-05-24 14:37] LABS: ALBUMIN 3.3 g/dL (3.4-5.0); ALKALINE PHOSPHATASE 88 U/L (46-116); SGOT 22 U/L (15-37); SGPT 37 U/L (30-65); TOTAL BILIRUBIN 0.5 mg/dL (<0.1-1.0); TROPONIN-I LEVEL <0.06 ng/mL (<0.06)
[2019-05-24 16:24] LABS: URINE BILIRUBIN NEGATIVE (Negative); URINE BLOOD NEGATIVE (Negative); URINE CLARITY CLEAR; URINE COLOR YELLOW; URINE GLUCOSE-RANDOM 3+ (Negative); URINE KETONES NEGATIVE (Negative); URINE LEUKOCYTES-REFLEX NEGATIVE (Negative); URINE NITRITE-REFLEX NEGATIVE (Negative); URINE PROTEIN NEGATIVE (Negative); URINE UROBILINOGEN 0.2 E.U./dl (0.2-1.0)
[2019-05-24 17:24] VITALS: BP 133/79
[2019-05-24 17:45] VITALS: BP 118/62; BP 126/73
--- NOTE | 2019-05-24 18:00 | NUR ---
REC'D REPORT FROM PRINCIPAL QUALITY ENGINEER, PATIENT TO UNIT VIA GURNEY AND ER STAFF. A&OX4, ABLE TO COMMUNICATE NEEDS TO STAFF. BATTERY HAND IN PLACE, SR. O2 SATS 95% RA. C/O DIZZYNESS, REQUESTING HOB NO HIGHER THAN 30 DEGREES. BED PLACED IN REVERSE TRENDELENBERG FOR MEAL. FLUIDS INFUSING ORDERED. ADMISSION HX AND ASSESSMENT COMPLETE. CALL LIGHT IN REACH.
[2019-05-24] MEDS ORDERED: LOVAZA1000 MG PO (18:29)
[2019-05-24] MEDS ORDERED: METFORMIN HCL500 MG PO (18:29)
[2019-05-24 20:00] VITALS: BP 110/56
[2019-05-25] VITALS: BP 120/65; BP 134/71
[2019-05-25 04:00] VITALS: BP 142/66
--- NOTE | 2019-05-25 06:57 | NUR ---
VSS. SEE MAR. SEE CHARTING. FALL PRECAUTIONS IN PLACE. HOURLY ROUNDING FOR SAFETY.
[2019-05-25 08:25] VITALS: BP 137/75
--- NOTE | 2019-05-25 09:29 | NUR ---
ASSUMED CARE AFTER REPORT. A&OX4, ABLE TO COMMUNICATE NEEDS TO STAFF. C/O DIZZYNESS. ASKS FOR ASSISTANCE WHEN IN NEED OF ASSISTANCE. AUTOMOTIVE WHOLESALE PARTS ADVISOR IN PLACE, SR. O2 SATS 95% RA. CALL LIGHT IN REACH. HOURLY ROUNDING COMPLETED FOR SAFETY AND PATIENT NEEDS.
[2019-05-25 12:05] VITALS: BP 123/67
[2019-05-25 15:41] VITALS: BP 123/58
--- NOTE | 2019-05-25 16:02 | NUR ---
Pt sound asleep when CM went to assess x2, will f/u later
[2019-05-25 20:51] VITALS: BP 138/71
[2019-05-26 04:00] VITALS: BP 150/72
--- NOTE | 2019-05-26 06:55 | NUR ---
PT IS ABLE TO COMMUNICATE HER NEEDS TO STAFF EFFECTIVELY. SHE HAS DENIED THE NEED FOR PAIN MEDICATION UP TO THIS TIME. SHE IS TENTATIVELY SCHEDULED FOR A MRI/A HEAD, CAROTIDS, AND [place] TODAY.
[2019-05-26 08:00] VITALS: BP 141/77
[2019-05-26] MEDS ORDERED: VITAMIN B-12500 MCG PO (09:44)
[2019-05-26] MEDS ORDERED: ANTIVERT25 MG PO (09:44)
--- NOTE | 2019-05-26 12:00 | NUR ---
MET WITH PT TO DISCUSS HOME SITUATION/DC PLANNING. PT LIVES ALONE IN [facility] IN [place]. SHE DOESN'T HAVE A CAR AND WALKS EVERYWHERE. PT ADMITTED WITH [facility] AND HAVING SOME DIZZINESS AND DIFFICULTY GETTING AROUND. DISCUSSED ORDER FOR OUTPT PHYSICAL THERAPY. PT NOT ABLE TO GET TO THERAPY AND ASKED ABOUT HH. OK'D WITH DR OJEDA. PT ALSO NEEDING WALKER, ORDERS OBTAINED. ARRANGED FOR WALKER THRU [facility]. TO BE DELIVERED TO ROOM. DISCUSSED HH AND OPTIONS, CHOSE [facility]. CALLED AND FAXED ORDERS TO [facility]. PT TO GO HOME LATER.
[2019-05-26 12:01] VITALS: BP 141/77
== END 2019-05-26 12:48 | disposition home or self-care (01) ==
LOC: M.ERS 12:54 → M.TBA-ER 16:25 → M.2W 16:25
PROVIDERS: Personal Emergency Response Attendant; ADMIT Internal Medicine
DX: H81.10 Benign paroxysmal vertigo, unspecified ear (principal); I25.10 Atherosclerotic heart disease of native coronary artery without angina pectoris; R53.81 Other malaise; R11.0 Nausea; R42 Dizziness and giddiness; K21.9 Gastro-esophageal reflux disease without esophagitis; I11.0 Hypertensive heart disease with heart failure; I50.32 Chronic diastolic (congestive) heart failure; I48.91 Unspecified atrial fibrillation; E66.01 Morbid (severe) obesity due to excess calories; F41.1 Generalized anxiety disorder; R00.2 Palpitations; I25.2 Old myocardial infarction; E11.9 Type 2 diabetes mellitus without complications; J44.9 Chronic obstructive pulmonary disease, unspecified; M79.7 Fibromyalgia; M72.2 Plantar fascial fibromatosis; Z86.718 Personal history of other venous thrombosis and embolism; Z90.49 Acquired absence of other specified parts of digestive tract; Z88.5 Allergy status to narcotic agent; Z88.8 Allergy status to other drugs, medicaments and biological substances; Z88.0 Allergy status to penicillin; Z79.82 Long term (current) use of aspirin; Z79.899 Other long term (current) drug therapy

== ENCOUNTER 2019-06-05 15:16 | Inpatient (IN) | payer OTHER ==
[~2019-06-05] VITALS: Ht 167.6 cm; Wt 122.5 kg
[~2019-06-05 15:16] MED LIST changes: +ANTIVERT25 MG PO; +LOVAZA1000 MG PO; +VITAMIN B-12500 MCG PO
[2019-06-05 15:27] VITALS: BP 183/103
[2019-06-05] MEDS ORDERED: COQ-10100 MG PO (15:37)
[2019-06-05] MEDS ORDERED: GARLIC OIL1000 MG PO (15:37)
[2019-06-05] MEDS ORDERED: CURCUMIN1 GM PO (15:37)
[2019-06-05] MEDS ORDERED: ONDANSETRON HCL4 M2 PO (15:38)
[2019-06-05 15:53] LABS: ABSOLUTE BASOPHILS 0.1 thou/uL (0.0-0.2); ABSOLUTE EOSINOPHILS 0.1 thou/uL (0.0-0.7); ABSOLUTE LYMPHOCYTES 1.9 thou/uL (0.8-5.3); ABSOLUTE MONOCYTES 0.3 thou/uL (0.0-1.2); ABSOLUTE NEUTROPHILS 3.7 thou/uL (1.6-8.1); BASOPHILS 1.3 %; HEMATOCRIT 46.2 % (37.0-47.0); LYMPHOCYTES 31.1 %; MCH 30.3 pg (26.0-34.0); MCHC 34.6 g/dL (28.0-37.0); MCV 87.8 fL (80.0-100.0); MONOCYTES 5.6 %; MPV 7.6 fl. (7.2-11.1); NUCLEATED RBCS 0 /100WBC; PLATELET COUNT* 298 thou/uL (150-400); RBC 5.27 mil/uL (4.20-5.00); RDW-CV 12.8 % (10.5-14.5)
[2019-06-05 16:02] LABS: ANION GAP 10 mmol/L (7-16); BUN 13 mg/dL (7-18); CALCIUM 9.8 mg/dL (8.5-10.1); CHLORIDE 100 mmol/L (98-107); CO2 24 mmol/L (21-32); CREATININE 0.7 mg/dL (0.6-1.3); GLUCOSE 305 mg/dL (70-99); POTASSIUM 4.1 mmol/L (3.5-5.1); SODIUM 134 mmol/L (136-145)
[2019-06-05 16:03] LABS: APTT 26.1 Seconds (25.0-31.3); INR 1.1; PROTIME 10.8 Seconds (9.20-11.50)
[2019-06-05 16:13] LABS: ALBUMIN 3.6 g/dL (3.4-5.0); ALKALINE PHOSPHATASE 86 U/L (46-116); NT-PRO BRAIN NAT PEPTIDE 49 pg/mL (<300); SGOT 29 U/L (15-37); SGPT 41 U/L (30-65); TOTAL BILIRUBIN 0.6 mg/dL (<0.1-1.0); TOTAL PROTEIN 7.7 g/dL (6.4-8.2); TROPONIN-I LEVEL <0.06 ng/mL (<0.06)
--- NOTE | 2019-06-05 16:20 | NUR ---
IV PLACED BY DR. STONE UNDER US GUIDEANCE
[2019-06-05 17:35] VITALS: BP 166/91
[2019-06-05 17:51] VITALS: BP 159/89
--- NOTE | 2019-06-05 18:10 | NUR ---
PATIENT ARRIVED TO UNIT AT APPROX 1740. ALERT AND ORIENTED X4. ASSESSMENT COMPLETED AND CHARTED. VSS ON ROOM AIR. COMPLAINTS OF HEADACHE, DR CONTACTED FOR MEDS. NO COMPLAINTS OF NASUEA OR SOA. COMPLAINTS OF DIZZINESS AND BLURRED VISION. INSTRUCTED PATIENT TO USE CALL LIGHT BEFORE GETTING UP TO PREVENT FALLS. CALL LIGHT PLACED IN REACH. WILL CONTINUE TO MONITOR.
[2019-06-05 20:00] VITALS: BP 157/92
[2019-06-06 00:04] LABS: URINE BILIRUBIN NEGATIVE (Negative); URINE BLOOD NEGATIVE (Negative); URINE CLARITY CLEAR; URINE COLOR YELLOW; URINE GLUCOSE-RANDOM 2+ (Negative); URINE KETONES TRACE (Negative); URINE LEUKOCYTES-REFLEX NEGATIVE (Negative); URINE NITRITE-REFLEX NEGATIVE (Negative); URINE PROTEIN NEGATIVE (Negative); URINE SPECIFIC GRAVITY >= 1.030 (1.005-1.030); URINE UROBILINOGEN 0.2 E.U./dl (0.2-1.0)
--- NOTE | 2019-06-06 05:21 | NUR ---
PT CO HEADACHE AT START OF SHIFT, IMPROVING SLIGHTLY WITH TYLENOL. HS ACCUCHECK 304, RECEIVED PO MED AND SUB Q INSULIN PER SS. UP WITH WALKER AND SBA TO BR TO VOID, CO DIZZINESS WHEN MOVING HEAD UP AND DOWN OR SIDE TO SIDE, MECLIZINE GIVEN. RECEIVED AMBIEN AT 2330 AND SLEPT FAIRLY WELL, ZOFRAN PO GIVEN FOR NAUSEA WITHOUT EMESIS. PT TOLERATED BOX LUNCH SNACK AT HS WITHOUT DIFFICULTY. LAC SL. AOX4, STATES SHE GETS DEPRESSED BECAUSE OF HIGH BLOOD SUGAR AND DIZZINESS, HUSBANDS LAST . DENIES SUICIDAL IDEATIONS. NO LABS THIS MORNING. ABLE TO USE CALL LITE AND MAKE NEEDS KNOWN. BED ALARM ON FOR SAFETY.
--- NOTE | 2019-06-06 05:31 | NUR ---
PT REQUESTING O2 OVERNIGHT, STATES SHE HAS SLEEP APNEA AND HAS USED CPAP AT HOME. ROOM AIR SAT 95%, O2 2L PLACED ON PT WHILE SLEEPING REQUESTED.
[2019-06-06 07:30] VITALS: BP 113/67
[2019-06-06 12:23] LABS: CALCIUM 9.6 mg/dL (8.5-10.1); CREATININE 0.8 mg/dL (0.6-1.3); MAGNESIUM 1.9 mg/dL (1.8-2.4); POTASSIUM 4.6 mmol/L (3.5-5.1)
--- NOTE | 2019-06-06 16:17 | NUR ---
ASSUMED CARE OF PATIENT AT APPROX 0730. ALERT AND ORIENTED X4. ASSESSMENT COMPLETED AND CHARTED. VSS ON ROOM AIR. NO COMPLEINTS OF PAIN, OR SOA. SOME COMPLAINTS OF NAUSEA MANAGED WITH ZOFRAN. BLOOD SUGARS REMAIN ELEVATED. INSULIN GLARGINE ADDED THIS AFTERNOON. LINAGLIPTIN ADDED YESTERDAY ORAL. PATIENT CONTINUES TO ASK FOR DIET SODAS, CRACKERS AND PEANUT BUTTER, EDUCATION GIVEN ON WHAT FOODS CAN ELEVATE BLOOD SUGARS. PATIENT COMPLAINING OF PAIN IN HER LEFT GROIN AREA, ASKED IF HER URINE CAME BACK POSITIVE FOR A UTI AND IF THIS COULD BE CAUSING HER PAIN. I TOLD HER THAT HER URINE SAMPLE RESULTS LOOKED FINE AND ASKED HER IF SHE WANTED SOMETHING FOR PAIN, SHE SAID NO. I TOLD HER THAT I COULD LET THE DOCTOR KNOW ABOUT HER PAIN AND SHE SAID SHE DIDNT WANT TO BE "POKED AROUND ON" AND NOT TO WORRY ABOUT IT. PATIENT UP STAND BY ASSIST WITH WALKER TO THE BATHROOM. CALL LIGHT IN REACH AND USES APPROPRIATELY. HOURLY ROUNDS COMPLETED. WILL CONTINUE TO MONITOR.
[2019-06-06 16:30] VITALS: BP 99/48
[2019-06-06 20:00] VITALS: BP 128/70
--- NOTE | 2019-06-07 06:02 | NUR ---
Alert and oriented x 4. Up with stand by assist to bathroom with walker. Vitals are stable. She c/o having a cough but lungs are clear and diminished. She requested miralax at bedtime b/c she takes taht at home. Order was recieved. She did aan ambien at bedtime and she as slept well.
[2019-06-07 06:04] LABS: CALCIUM 9.4 mg/dL (8.5-10.1); CREATININE 0.8 mg/dL (0.6-1.3); POTASSIUM 4.4 mmol/L (3.5-5.1)
[2019-06-07 07:30] VITALS: BP 137/70
--- NOTE | 2019-06-07 11:58 | NUR ---
Nutrition: Pt admitted and assessed for DX of uncontrolled DM. RDs have seen pt multiple times for nutrition education, including CHOs, label reading, heart health. Albumin 3.6, BG 200s. On insulin, metformin, lasix. CHO controlled diet ordered. Wt: 270#. H/o CAD, CHF, DM, COPD, OBE. Has UTI and a cough. Consider low to mild risk. Please consult RD if further education is desired.
--- NOTE | 2019-06-07 12:27 | NUR ---
MET WITH PT. WAS TEARFUL AT TIMES. SAID SHE IS TIRED OF BEING SICK. HER LAST . SHE SAID SINCE THEN HER HEALTH HAS DETERIORATED. SHE SAID SHE HAS 3 CHILDREN AND THEY HAVE STOPPED COMING AROUND MUCH SINCE HER . SHE GETS HER SS. BUT SAID IT ISN'T MUCH. SHE DOES NOT HAVE A CAR. IS WORRIED ABOUT HAVING TO AFFORD INSULIN. HAS A WALKER AT HOME AND A CANE AT BEDSIDE. [facility] HAS BEEN SEEING HER SINCE LAST DISCHARGE FROM THE HOSPITAL. SHE DOES NOT THINK NURSING HAD BEEN SEEING HER JUST P.T. WILL HAVE CAIN SEE PT.TO DISCUSS RESOURCES AND IF SHE QUALIFIES FOR MEDICAID. FAXED FACE SHEET TO [facility].
--- NOTE | 2019-06-07 12:30 | EKG ---
[place] [address] ELECTROCARDIOGRAM REPORT Name: GYPSYDOC DARBYMIRYAM SIGRID Room: [address] ADM IN .R.#: [id number] Admission: 06/05/19 Attend Phys: Sharlene Solares Discharge: Date of : 53 Report #: [id number] THIS REPORT FOR: //name// [facility] ED Test Date: 2019-06-05 Test Time: 15:49:29 Pat Name: FAUSTINO JACKSON Department: Room: [facility] Gender: F Safety Attendant: : 1955 Requested By: Bon Belle Order Number: [id number] MD: Dejon Buck Measurements Intervals [place] Rate: 88 P: 33 AR: 128 QRS: -7 QRSD: 84 T: 34 QT: 363 QTc: 440 Interpretive Statements Sinus rhythm Compared to ECG 05/24/2019 12:57:04 No significant changes Electronically Signed On 06-07-2019 12:30:28 CDT by Dejon Buck [email or web address] <ELECTRONICALLY SIGNED> By: Dejon Buck MD, [facility] 06/07/19 1230 1549 1549 Dejon Buck MD, [facility] /EPI
[2019-06-07 16:23] VITALS: BP 140/72
--- NOTE | 2019-06-07 17:02 | NUR ---
PT REMAINED ALERT AND ORIENTED. INSULIN GIVEN ORDERED. THROAT LOZENGES GIVEN ORDERED. PT TEARFUL. PT EDUCATED ON FALL RISK PRECAUTIONS. KEG FILLER GIVEN FOR CELL PHONE. FALL RISK PRECAUTIONS IN PLACE. HOURLY ROUNDING COMPLETED. WILL CONTINUE TO MONITOR.
--- NOTE | 2019-06-08 06:00 | NUR ---
PATIENT HAS SLEPT WELL THROUGHOUT THE NIGHT. VSS ON RA. NO C/O PAIN. MEDICATIONS GIVEN ORDERED AND CHARTED. IV IN LEFT AC-SL. PATIENT INSTRUCTED TO USE CALL LIGHT WHEN NEEDING ASSISTANCE. HOURLY ROUNDS MADE. WILL CONTINUE WITH PLAN OF CARE AND NURSING TO MONITOR.
[2019-06-08 07:40] VITALS: BP 142/79
[2019-06-08] MEDS ORDERED: LANTUS100 UNIT/M SUBQ (09:08)
[2019-06-08] MEDS ORDERED: HUMALOG100 UNIT/1 SUBQ (09:11)
[2019-06-08] MEDS ORDERED: ROBITUSSIN100 MG/53 PO (11:42)
--- NOTE | 2019-06-08 16:43 | NUR ---
CALLED IN PRESCRIPTIONS , WRITTEN, TO [facility]. COPAY FOR LANTUS WAS $94 FOR 2 VIALS. NOVOLOG WAS ALSO $94. PENS WERE MUCH HIGHER COPAY. PHARMACIST SAID PT.CAN ASK FOR NOVOLIN,NR OR 70/30 WITHOUT PRESCIPTION AND PURCHASE FOR $25 PER VIAL. DISCUSSED WITH PT. SHE SAID SHE HAS NO MONEY AT THIS TIME OF THE MONTH FOR COPAYS. SHE SAID SHE GETS HER OTHER MEDS THROUGH [facility] [phone] OR [phone]. SPOKE WITH [facility]. SHE SAID THEY COULD OVERNIGHT HER INSULIN WELL. PT.HAS AN OUTSTANDING BALANCE BUT THEY WOULD STILL MAIL OUT MEDS AND ADD TO HER BILL. CALLED IN ALL PRESCRIPTIONS WRITTEN TO [facility]-LANTUS,NOVOLOG,INSULIN SYRINGES,LANCETS AND TEST STRIPS,ALCOHOL SPONGES,AND ROBUTUSSIN. PT.WAS GIVEN A ONE TOUCH VERIO FLEX GLUCOMETER AND READING MATERIAL ON DIABETES BY NURSING ADULT EDUCATION TEACHER. FAXED REFERRAL AND DISCHARGE ORDERS TO [facility]. THEY WILL ACCEPT PT.AND CALL HER TOMORROW TO SET UP APPT. PT.HAS A FRIEND THAT WILL COME TO PICK HER UP THIS EVENING TO TAKE HER HOME.
--- NOTE | 2019-06-08 16:56 | NUR ---
PT GIVEN DISCHARGE INFORMATION AND CARE NOTES. PRESCRIPTIONS CALLED INTO [facility]. HOME HEALTH SET UP. IV REMOVED. DIABETES CARE PACKAGE GIVEN TO PT. FALL RISK PRECAUTIONS IN PLACE. HOURLY ROUNDING COMPLETED. PT LEFT VIA WHEELCHAIR WITH NURSING STAFF TO HOME WITH HOME HEALTH.
[2019-06-09] MEDS ORDERED: TESSALON PERLE100 MG PO (23:34)
== END 2019-06-08 16:57 | disposition home health service (06) | DRG 638 ==
LOC: M.ERS 15:16 → M.TBA-ER 16:27 → M.ORTHSURG 16:27
PROVIDERS: Family Medicine; ADMIT Internal Medicine
DX: E11.65 Type 2 diabetes mellitus with hyperglycemia (principal); I50.32 Chronic diastolic (congestive) heart failure; E66.01 Morbid (severe) obesity due to excess calories; I25.10 Atherosclerotic heart disease of native coronary artery without angina pectoris; J44.9 Chronic obstructive pulmonary disease, unspecified; I11.0 Hypertensive heart disease with heart failure; K21.9 Gastro-esophageal reflux disease without esophagitis; M79.7 Fibromyalgia; I48.91 Unspecified atrial fibrillation; F32.9 Major depressive disorder, single episode, unspecified; F41.1 Generalized anxiety disorder; Z79.899 Other long term (current) drug therapy; Z79.82 Long term (current) use of aspirin; Z95.5 Presence of coronary angioplasty implant and graft; Z90.49 Acquired absence of other specified parts of digestive tract; I25.2 Old myocardial infarction; Z87.01 Personal history of pneumonia (recurrent); Z98.49 Cataract extraction status, unspecified eye; Z86.718 Personal history of other venous thrombosis and embolism; Z88.8 Allergy status to other drugs, medicaments and biological substances; Z88.6 Allergy status to analgesic agent; Z68.41 Body mass index [BMI] 40.0-44.9, adult; Z88.0 Allergy status to penicillin

== ENCOUNTER 2019-06-09 21:14 | Emergency (ER) | payer OTHER ==
[~2019-06-09] VITALS: Ht 167.6 cm; Wt 122.5 kg
[~2019-06-09 21:14] MED LIST changes: +COQ-10100 MG PO; +CURCUMIN1 GM PO; +GARLIC OIL1000 MG PO; +HUMALOG100 UNIT/1 SUBQ; +LANTUS100 UNIT/M SUBQ; +ROBITUSSIN100 MG/53 PO
[2019-06-09 22:44] LABS: ABSOLUTE BASOPHILS 0.1 thou/uL (0.0-0.2); ABSOLUTE EOSINOPHILS 0.1 thou/uL (0.0-0.7); ABSOLUTE LYMPHOCYTES 2.1 thou/uL (0.8-5.3); ABSOLUTE MONOCYTES 0.5 thou/uL (0.0-1.2); ABSOLUTE NEUTROPHILS 5.1 thou/uL (1.6-8.1); BASOPHILS 0.9 %; EOSINOPHILS 1.7 %; HEMATOCRIT 44.6 % (37.0-47.0); HEMOGLOBIN 15.1 gm/dL (12.0-15.0); LYMPHOCYTES 26.1 %; MCH 30.4 pg (26.0-34.0); MCHC 33.9 g/dL (28.0-37.0); MCV 89.8 fL (80.0-100.0); MONOCYTES 6.7 %; MPV 7.8 fl. (7.2-11.1); NUCLEATED RBCS 0 /100WBC; PLATELET COUNT* 238 thou/uL (150-400); POLYS 64.6 %; RBC 4.96 mil/uL (4.20-5.00); RDW-CV 13.2 % (10.5-14.5); WBC 7.9 thou/uL (4.0-11.0)
[2019-06-09 23:04] LABS: CALCIUM 9.5 mg/dL (8.5-10.1); CREATININE 0.7 mg/dL (0.6-1.3); POTASSIUM 4.1 mmol/L (3.5-5.1)
[2019-06-09 23:09] LABS: ALBUMIN 3.8 g/dL (3.4-5.0); TOTAL BILIRUBIN 0.6 mg/dL (<0.1-1.0); TOTAL PROTEIN 7.1 g/dL (6.4-8.2)
[2019-06-09] MEDS ORDERED: TESSALON PERLE100 MG PO (23:34)
[2019-06-09 23:45] VITALS: BP 146/61
== END 2019-06-09 23:46 | disposition home or self-care (01) ==
LOC: M.ERS 21:14
PROVIDERS: Nurse Practitioner Family
DX: J06.9 Acute upper respiratory infection, unspecified (principal); I25.10 Atherosclerotic heart disease of native coronary artery without angina pectoris; I10 Essential (primary) hypertension; E11.9 Type 2 diabetes mellitus without complications; J44.9 Chronic obstructive pulmonary disease, unspecified; I11.0 Hypertensive heart disease with heart failure; I50.9 Heart failure, unspecified; K21.9 Gastro-esophageal reflux disease without esophagitis; M79.7 Fibromyalgia; Z79.82 Long term (current) use of aspirin; Z79.4 Long term (current) use of insulin; Z79.899 Other long term (current) drug therapy; Z90.49 Acquired absence of other specified parts of digestive tract; Z88.6 Allergy status to analgesic agent; Z88.0 Allergy status to penicillin

== ENCOUNTER 2019-06-17 23:51 | Inpatient (IN) | payer OTHER ==
[~2019-06-17] VITALS: Ht 167.6 cm; Wt 129.3 kg
[~2019-06-17 23:51] MED LIST changes: -VITAMIN D5000 UNIT; +VITAMIN D5000 UNIT PO
[2019-06-17 23:55] VITALS: BP 145/56
[2019-06-18] VITALS (18 sets, daily range): BP systolic 110–157; BP diastolic 53–88
[2019-06-18] MEDS ORDERED: AZITHROMYCIN 2250 MG PO (00:06)
[2019-06-18 00:15] LABS: ABSOLUTE BASOPHILS 0.1 thou/uL (0.0-0.2); ABSOLUTE EOSINOPHILS 0.1 thou/uL (0.0-0.7); ABSOLUTE LYMPHOCYTES 2.1 thou/uL (0.8-5.3); ABSOLUTE MONOCYTES 0.5 thou/uL (0.0-1.2); BASOPHILS 0.7 %; EOSINOPHILS 1.7 %; HEMATOCRIT 39.2 % (37.0-47.0); HEMOGLOBIN 13.6 gm/dL (12.0-15.0); LYMPHOCYTES 27.1 %; MCH 30.5 pg (26.0-34.0); MCHC 34.8 g/dL (28.0-37.0); MCV 87.6 fL (80.0-100.0); MONOCYTES 6.9 %; MPV 7.7 fl. (7.2-11.1); NUCLEATED RBCS 0 /100WBC; PLATELET COUNT* 283 thou/uL (150-400); POLYS 63.6 %; RBC 4.47 mil/uL (4.20-5.00); RDW-CV 12.6 % (10.5-14.5); WBC 7.8 thou/uL (4.0-11.0)
[2019-06-18 00:19] LABS: INR 1.1; PROTIME 10.9 Seconds (9.20-11.50)
[2019-06-18 00:20] LABS: ANION GAP 9 mmol/L (7-16); BUN 17 mg/dL (7-18); CALCIUM 9.3 mg/dL (8.5-10.1); CHLORIDE 99 mmol/L (98-107); CO2 26 mmol/L (21-32); CREATININE 0.9 mg/dL (0.6-1.3); GLUCOSE 342 mg/dL (70-99); POTASSIUM 3.9 mmol/L (3.5-5.1); SODIUM 134 mmol/L (136-145)
[2019-06-18 00:30] LABS: ALKALINE PHOSPHATASE 85 U/L (46-116); LIPASE 313 U/L (73-393); MAGNESIUM 1.7 mg/dL (1.8-2.4); NT-PRO BRAIN NAT PEPTIDE 68 pg/mL (<300); SGOT 19 U/L (15-37); SGPT 33 U/L (30-65); TOTAL BILIRUBIN 0.3 mg/dL (<0.1-1.0); TOTAL PROTEIN 6.9 g/dL (6.4-8.2); TROPONIN-I LEVEL <0.06 ng/mL (<0.06)
--- NOTE | 2019-06-18 05:08 | NUR ---
PT ADMITTED AT 0245 FOR CHEST PAIN. PT REPORTED DIFFICULTY BREATHING AND STATED SHE NEEDED A BREATHING TREATMENT. PT REPORTS USING HOME NEBULIZER DAILY. DR PADMINI URRUTIA, ORDERS RECIEVED FOR DUONEB BREATHING TREATMENTS. RT NOTIFIED, PT RECIEVED TREATMENT. PT VOICED RELIEF.
--- NOTE | 2019-06-18 10:00 | NUR ---
ASSUMED CARE OF PT AT 0730. PT RESTING IN BED. PT A&0X4, DENIES ANY PAIN OR SHORTNESS OF BREATH AT THIS TIME. PT NPO FOR CARDIOLOGY CONSULT. DR MONTOYA HERE TO SEE PT. ORDERS RECEIVED FOR HEART CATH. CONSENT SIGNED AND PLACED IN FRONT OF CHART. PT TRACING SR ON THE DAM WORKER. ON RA SAT UPPER 90'S. IVF. PT UP WITH 1 ASSIST. PT GOAL FOR TODAY IS PAIN MGMT AND HEART CATH. AM ASSESSMENT CHARTED. MEDICATIONS PER JAN. PT REPOSITIONS SELF. HOURLY ROUNDING OBSERVED. BED IN LOW POSITION. CALL LIGHT WITHIN REACH. WILL CONTINUE PLAN OF CARE.
--- NOTE | 2019-06-18 11:13 | EKG ---
[place] [address] ELECTROCARDIOGRAM REPORT Name: URMILA JACKSONChristopher SIGRID Room: [address] ADM IN [facility]#: [id number] Admission: 06/18/19 Attend Phys: Lore Chapman MD Discharge: Date of : 53 Report #: [id number] THIS REPORT FOR: //name// [facility] ED Test Date: 2019-06-17 Test Time: 23:55:36 Pat Name: FAUSTINO JACKSON Department: Room: [facility] Gender: F Respiratory Director: MR : 1955 Requested By: Jozef Johns Order Number: [id number] : Dejon Buck Measurements Intervals [place] Rate: 104 P: 43 PA: 127 QRS: 7 QRSD: 82 T: 44 QT: 344 QTc: 453 Interpretive Statements Sinus tachycardia Compared to ECG 06/05/2019 15:49:29 Sinus rhythm no longer present Electronically Signed On 06-18-2019 11:13:29 CDT by Dejon Buck [email or web address] <ELECTRONICALLY SIGNED> By: Dejon Buck MD, [facility] 06/18/19 1113 2355 9005 Dejon Buck MD, [facility] /EPI
--- NOTE | 2019-06-18 11:14 | EKG ---
[place] [address] ELECTROCARDIOGRAM REPORT Name: DOC JACKSONMIYRAM SIGRID Room: [address] ADM IN [facility].#: [id number] Admission: 06/18/19 Attend Phys: Lore Chapman MD Discharge: Date of : 53 Report #: [id number] THIS REPORT FOR: //name// [facility] Test Date: 2019-06-18 Test Time: 11:09:47 Pat Name: FAUSTINO JACKSON Department: Room: [address] Gender: F Mud Boss: : 1955 Requested By: Dejon Buck Order Number: [id number] Subhash MD: Dejon Buck Measurements Intervals [place] Rate: 95 P: 53 TX: 192 QRS: 3 QRSD: 85 T: 38 QT: 375 QTc: 472 Interpretive Statements Sinus rhythm Compared to ECG 06/17/2019 23:55:36 Sinus tachycardia no longer present Electronically Signed On 06-18-2019 11:14:45 CDT by Dejon Buck [email or web address] <ELECTRONICALLY SIGNED> By: Dejon Buck MD, [facility] 06/18/19 1114 1109 08 Dejon Buck MD, [facility] /EPI
--- NOTE | 2019-06-18 12:58 | CARD ---
[address] [address] CARDIAC CATH REPORT Name: FAUSTINO JACKSON Room: [address] IN [facility]#: [id number] Admission: 06/18/19 Attend Phys: Lore Chapman MD Discharge: Date of : 53 Report #: [id number] THIS REPORT FOR: //name// APPROVED REPORT Study performed: 06/18/2019 08:43:30 Patient Details Patient Status: In-Patient Room #: The patient is a 64 year-old female Event Personnel Dejon Buck Water Main Pipe Layer, Angela Chase RN Field Liability Generalist, Joann Ceja RTR Scrub, Tobias Saucedo IMAGING ACCOUNT MANAGER Monitor, Mechelle Minor RTR Monitor Procedures Performed Left Heart Cath w/or w/o Coronaries [id number] [facility] [address] w/wo Plasty Single CIRC [id number] Indication Chest pain Risk Factors Hypercholesterolemia, Coronary Artery Disease, Diabetes Previous Procedures/Diagnoses Previous PCI Admission/Lab Medications/Medications given during procedure Glycoprotein IllbIlla Inhibitors, Heparin Unfract. Procedure Narrative The patient was brought electively to the Cardiac Catheterization Laboratory and was prepped and draped in a sterile manner. The right femoral was infiltrated with 1% Lidocaine subcutaneous anesthesia. A 6fr Ultimum Sheath sheath was inserted into the RFA. Coronary angiography was performed using coronary diagnostic catheters. The right coronary system was accessed and visualized with a 6F MPA 1 catheter. The left coronary system was accessed and visualized with a JL 4 6F catheter. The left ventricle was accessed and visualized with a ANGLED PIG catheter. Left ventricular/Aortic Valve gradient assessed via catheter pullback. Left ventriculogram was performed in ARMENDARIZ projection. Closure device was deployed with a [address] [place] [address] CARDIAC CATH REPORT Name: FAUSTINO JACKSON Room: [address]#: [id number] Admission: 06/18/19 Attend Phys: Lore Chapman MD Discharge: Date of : 53 Report #: [id number] 6Fr. The patient tolerated the procedure well and there were no complications associated with the procedure. There was no hematoma. Intraoperative Conscious Sedation Sedation start time: 941 Case end Time: 1038 Fentanyl 25 mcg Versed 3 mg Fluoro Time: 6.8 minutes Dose: DAP [id number] cGycm2 1474 mGy Contrast Type and Amount: Omnipaque 210 ml Coronary Angiography The patient's coronary anatomy is right dominant. Diagnostic Cath Left Main No left main artery. 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 LAD 50% proximal stenosis. Stent after first diagonal branch had 0% stenosis. Circumflex Arose from right cusp and traveled posterior to aortic root. Proximal stent had 0% stenosis, although there was a 80% distal edge stenosis beyond the stent. Right Coronary Proximal stent had 0% stenosis, although 30% stenosis noted beyond stent. Left Ventriculography The left ventricular ejection fraction is estimated to be 60-65%. Left ventricular wall motion abnormalities are not present. There is no mitral insufficiency. Hemodynamics The aortic pressure is 109/58 mmHg with a mean of 79 mmHg. The left ventricular pressure is 144/10 mmHg with a mean of mmHg. The left ventricular end diastolic pressure is 18 mmHg. There was no gradient across the aortic valve upon pullback. Pullback from the left ventricle to the aorta revealed no gradient across the aortic valve. PCI Technique Lesion Anticoagulation was achieved with Heparin. bolus of iv aggrastat given Percutaneous coronary intervention was performed on the mid circumflex artery segment. The lesion stenosis prior to intervention was 80% with AVELINO 3 flow. A 6F MPA 1 Guide Catheter was used to engage the circumflex ostium. A IG: ERICA [address] [place] [address] CARDIAC CATH REPORT Name: FAUSTINO JACKSON Room: [address]#: [id number] Admission: 06/18/19 Attend Phys: Lore Chapman MD Discharge: Date of : 53 Report #: [id number] Guidewire was used to cross the lesion. BALLOON DILATION A Balloon catheter Trek RX 2.5 X 8 was inserted and inflated up to 12.00atm for 18seconds. Repeat angiography revealed the following post-dilatation results: 40% stenosis. STENT DEPLOYMENT A drug-eluting stent Rohit RX Stent [id number] was inserted and inflated up to 10.00atm for 17seconds. Repeat angiography revealed the following post-stent deployment results: 0% stenosis. Additional Inflation: 12.00atm for 16seconds. Additional Inflation: 13.00atm for 18seconds. Final angiography reveals 0 % stenosis with AVELINO 3 flow. Conclusion 1. 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 2. 80% distal edge restenosis of stent in the proximal circumflex. 3. successful placement of a drug eluting stent in the circumflex. 4. LVEF 60% Recommendations Cardiac Rehabilitation Referral Aggressive Medical Therapy Medications Administered Clopidogrel <ELECTRONICALLY SIGNED> By: Dejon Buck MD, [facility] 06/18/19 1258 1258 [id number] Buck MD, FACC /INF
--- NOTE | 2019-06-18 15:52 | NUR ---
SW met with pt to complete initial assessment and discuss safe dc planning. Pt known to [facility] due to previous admissions. Pt continues to live in an apartment alone. Pt says that her children are more supportive now and check on her more now that she has lived in [place]. Pt has a dtr who lives in [place] and a son in [place]. Pt has a RW, cane and pt says she is interested in an electric wc to which SW explained that pt might not qualify for one through insurance if pt is walking more than 20 feet in her home; pt says she is unable to propel a regular wc if she would even qualify for that. SW recommended pt speak with her PCP about order for wc in the future but that if pt does qualify according to therapy and if hospitalist agrees with order, than [facility] could begin process. Pt PCP is Dr Pebbles Beltran. SW to remain available to assist with safe dc planning.
--- NOTE | 2019-06-18 18:02 | NUR ---
NO ACUTE CHANGES THROUGHOUT SHIFT. REFER TO CHARTING. PT HAD CARDIAC CATH TODAY- ACCESS INTO THE RIGHT GROIN. POST CARDIAC CATH ASSESSMENT AND VITALS CHARTED. RIGHT GROIN CATH SITE C/D/I WITH NO HEMATOMA NOTED. PT CONTINUES TO TRACE SR ON THE DAY GUARD. ON RA SAT UPPER 90'S. PT DENIES ANY PAIN OR SHORTNESS OF BREATH THIS AFTERNOON. PT UP WITH 1 SBA TO BATHROOM. PROBABLE DISCHARGE HOME TOMORROW 06/19. MEDICATIONS PER JAN. PT REPOSITIONS SELF. HOURLY ROUNDING OBSERVED. BED IN LOW POSITION. CALL LIGHT WITHIN REACH. WILL CONTINUE PLAN OF CARE.
[2019-06-19] VITALS: BP 115/56
--- NOTE | 2019-06-19 02:53 | NUR ---
PT DENIES ANY PAIN AFTER CARDIAC CATH. RIGHT GROIN DRESSING DRY AND INTACT. DID REPORT STOMACH PAIN/CONSTIPATION. MIRILAX GIVEN. PT REQUESTED AMBIEN FOR SLEEP AND LAST DOSE OF ZPACK. PT IS CURRENTLY RESTING. CALL LIGHT IN REACH. HOURLY ROUNDING FOR SAFETY.
[2019-06-19 04:00] VITALS: BP 138/58
[2019-06-19 04:49] LABS: HEMATOCRIT 37.9 % (37.0-47.0); HEMOGLOBIN 12.9 gm/dL (12.0-15.0); MCH 30.2 pg (26.0-34.0); RBC 4.26 mil/uL (4.20-5.00); RDW-CV 13.1 % (10.5-14.5); WBC 6.5 thou/uL (4.0-11.0)
[2019-06-19 05:25] LABS: CALCIUM 8.6 mg/dL (8.5-10.1); CHOLESTEROL 208 mg/dL (<200); CREATININE 0.8 mg/dL (0.6-1.3); HDL CHOLESTEROL 36 mg/dL (>40); LDL CHOLESTEROL 125 mg/dL (<100); MAGNESIUM 2.2 mg/dL (1.8-2.4); POTASSIUM 4.5 mmol/L (3.5-5.1); TC:HDL 5.8 Ratio (Not establshd); TRIGLYCERIDE 237 mg/dL (<150); TROPONIN-I LEVEL 0.18 ng/mL (<0.06); VLDL 47 mg/dL (<40)
[2019-06-19 05:30] LABS: SERUM ASSESSMENT Slight Lipemia
[2019-06-19 07:51] VITALS: BP 124/79
[2019-06-19 08:47] VITALS: BP 118/53
--- NOTE | 2019-06-19 09:16 | NUR ---
ASSUMED CARE OF PT AT 0730. PT RESTING IN RECLINER WAITING FOR BREAKFAST. PT A&0X4, DENIES ANY PAIN OR SHORTNESS OF BREATH AT THIS TIME. PT TRACING SR ON THE QUALITY HEAD. ON RA SAT UPPER 90'S. PT UP WITH 1 ASSIST AND WALKER TO BATHROOM. RIGHT GROIN CATH SITE IS C/D/I WITH NO HEMATOMA. PT GOAL FOR TODAY IS UP TO CHAIR FOR MEALS, INCREASE ACTIVITY AND DISCHARGE PLANNING TO HOME. AM ASSESSMENT CHARTED. MEDICATIONS PER JAN. PT REPOSITIONS SELF. HOURLY ROUNDING OBSERVED. BED IN LOW POSITION. CALL LIGHT WITHIN REACH. WILL CONTINUE PLAN OF CARE.
[2019-06-19] MEDS ORDERED: PLAVIX 75 MG TA75 M1 PO (10:51)
[2019-06-19] MEDS ORDERED: TYLENOL325 MG PO (11:04)
[2019-06-19] MEDS ORDERED: RED YEAST RICE600 MG PO (11:05)
[2019-06-19 12:05] VITALS: BP 141/78
--- NOTE | 2019-06-19 13:32 | NUR ---
DISCHARGE ORDERS RECEIVED. DISCHARGE INSTRUCTIONS, CARE NOTES, SCRIPTS AND FOLLOW UP APPTS GIVEN TO PT. PT COMMUNICATES UNDERSTANDING OF DISCHARGE TEACHING. IV AND PLASTICS FABRICATOR OR WELDER REMOVED. PT DISCHARGED WITH ALL BELONGINGS AND PAPERWORK VIA WHEELCHAIR WITH NURSING STAFF TO [facility].
--- NOTE | 2019-06-20 10:55 | CON ---
[address] [address] CONSULTATION Name: FAUSTINO JACKSON Room: [address] IN .R.#: [id number] Admission: 06/18/19 Attend Phys: Lore Chapman MD Discharge: 06/19/19 Date of : 53 Report #: [id number] THIS REPORT FOR: //name// CC: Lore Beltran DO DATE OF SERVICE: 06/18/2019 CARDIOLOGY CONSULTATION HISTORY OF PRESENT ILLNESS: The patient is a 64-year-old single white female who I was asked to see in the hospital today after she complained of chest pain. The patient has an extensive past medical history. She has had several stents placed in her coronary arteries here at [facility]. Her last coronary stent apparently was placed a year ago in 05/2018. She was seen at that time by my partner, Dr. Pack. She had an angiogram from the right femoral artery. Results showed a stent in the LAD that is widely patent. 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 The right coronary artery itself had a 90% proximal stenosis. She then had a drug-eluting stent placed in the proximal circumflex as well as the right coronary artery. She was placed on Effient and discharged. She notes that recently she was on Brilinta, which was discontinued. She has only been taking an aspirin a day. Recently, she has been in and out of [facility] with a cough and elevated blood sugar. She was just discharged a week ago. She actually went to the gym yesterday. Yesterday, however, she was lying in a recliner when she had an episode of chest pain ____, she became diaphoretic, nauseated, took a nitroglycerin, it did not seem to help. She called the EMS and brought here to [facility] and admitted. She denied the pain being related to food. She has had no bleeding. The pain was not related to coughing. She had no trauma to her chest. She has had no significant exertional dyspnea. She does note occasional rapid heartbeat, but has had no syncope. PAST MEDICAL/SURGICAL HISTORY: She has had a previous SVT and has had ablation at [facility] in the past. She has had cholecystectomy, cataract extraction, and diabetes. She has sleep apnea, but apparently her CPAP was taken away from her by her insurance company. CURRENT MEDICATIONS: Consist of the following list: She is on Lasix, aspirin, potassium, Zithromax, metformin, and insulin. ALLERGIES: SHE HAS A PREVIOUS INTOLERANCE TO CIPRO, CODEINE, ZETIA, PENICILLIN, LIPITOR, AND METOPROLOL. FAMILY HISTORY: [place] [address] CONSULTATION Name: FAUSTINO JACKSON Room: [address] IN M.R.#: [id number] Admission: 06/18/19 Attend Phys: Lore Chapman MD Discharge: 06/19/19 Date of : 53 Report #: [id number] SOCIAL HISTORY: She is , lives by herself in [place], [place]. 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 No smoking at this time. No alcohol abuse. REVIEW OF SYSTEMS: She is morbidly obese. She is 5 feet 6 inches. She used to weigh over 300 pounds, she is now down to 280. She has a history of asthma. No history of peptic ulcer disease, liver disease, kidney disease, cancer, psychiatric illness, or chronic skin condition. PHYSICAL EXAMINATION: GENERAL: Revealed an elderly female, lying in bed. She appeared in no acute distress. VITAL SIGNS: She had blood pressure of 120/70, pulse 80, and she is afebrile. HEENT: She is anicteric. Conjunctivae are pink. Mucous membranes are moist. NECK: Veins difficult to assess due to obesity. No carotid bruits heard. CHEST: Clear to auscultation. CARDIOVASCULAR: Regular rate and rhythm. ABDOMEN: Obese. EXTREMITIES: Had trace edema. Dorsalis pedis pulse could not be palpated. SKIN: Cool and dry. NEUROLOGIC: Nonfocal. RADIOLOGIC DATA: Her ECG showed a sinus rhythm. There is no ST or T-wave change noted. Her workup: She had an echocardiogram done last summer that showed ejection fraction 60%, aortic sclerosis, and mild mitral regurgitation. She had portable chest x-ray done last night that showed normal heart size and clear lung redman. LABORATORY DATA: Her lab work: Sodium 134, creatinine 0.9, and glucose is 342. Her liver function studies were normal. Troponin 0.06. BNP 68. In November, she had cholesterol of 248, triglyceride 296, HDL 38, and LDL 151. Her white blood cell count 7.8 and hemoglobin 13.6. IMPRESSION AND RECOMMENDATIONS: 1. Possible unstable angina. Consider repeat cardiac catheterization. 2. Previous coronary artery stents. The patient does take an aspirin a day. 3. Morbid obesity. 4. Diabetes. 5. Hyperlipidemia. The patient could not tolerate statin drugs. I would consider injections of a PCSK9 inhibitor. 6. Sleep apnea. The patient no longer uses continuous positive airway [facility] [address] [place] [address] CONSULTATION Name: FAUSTINO JACKSON Room: [address] IN M.R.#: [id number] Admission: 06/18/19 Attend Phys: Lore Chapman MD Discharge: 06/19/19 Date of : 53 Report #: [id number] pressure. 7. Chronic obstructive pulmonary disease. <ELECTRONICALLY SIGNED> By: Dejon Buck MD, [facility] 06/20/19 1055 0832 0930Daellen Buck MD, FACC /nt
== END 2019-06-19 13:30 | disposition home or self-care (01) | DRG 246 ==
LOC: M.ERS 23:51 → M.2W 06-18 01:10 → M.TBA-ER 06-18 01:10 → M.2W 06-18 02:47
PROVIDERS: Emergency Medicine Emergency Medical Services; Internal Medicine Cardiovascular Disease; ADMIT Internal Medicine
PROC: 4A023N7 Measurement of Cardiac Sampling and Pressure, Left Heart, Percutaneous Approach (ICD-10-PCS; principal; 2019-06-18)
PROC: B2151ZZ Fluoroscopy of Left Heart using Low Osmolar Contrast (ICD-10-PCS; principal; 2019-06-18)
PROC: B2111ZZ Fluoroscopy of Multiple Coronary Arteries using Low Osmolar Contrast (ICD-10-PCS; principal; 2019-06-18)
PROC: 027034Z Dilation of Coronary Artery, One Artery with Drug-eluting Intraluminal Device, Percutaneous Approach (ICD-10-PCS; principal; 2019-06-18)
DX: T82.855A Stenosis of coronary artery stent, initial encounter (principal); I50.33 Acute on chronic diastolic (congestive) heart failure; I25.110 Atherosclerotic heart disease of native coronary artery with unstable angina pectoris; Z68.42 Body mass index [BMI] 45.0-49.9, adult; E11.9 Type 2 diabetes mellitus without complications; I25.10 Atherosclerotic heart disease of native coronary artery without angina pectoris; J44.9 Chronic obstructive pulmonary disease, unspecified; I11.0 Hypertensive heart disease with heart failure; K21.9 Gastro-esophageal reflux disease without esophagitis; E78.5 Hyperlipidemia, unspecified; G47.30 Sleep apnea, unspecified; M79.7 Fibromyalgia; I48.91 Unspecified atrial fibrillation; E66.01 Morbid (severe) obesity due to excess calories; Z79.2 Long term (current) use of antibiotics; Z79.82 Long term (current) use of aspirin; Z79.84 Long term (current) use of oral hypoglycemic drugs; Z79.4 Long term (current) use of insulin; Z79.899 Other long term (current) drug therapy; Z88.1 Allergy status to other antibiotic agents; Z88.6 Allergy status to analgesic agent; Z88.0 Allergy status to penicillin; Z95.5 Presence of coronary angioplasty implant and graft; I25.2 Old myocardial infarction; Z90.49 Acquired absence of other specified parts of digestive tract; Z87.01 Personal history of pneumonia (recurrent); Z86.718 Personal history of other venous thrombosis and embolism; Z79.01 Long term (current) use of anticoagulants; Z88.8 Allergy status to other drugs, medicaments and biological substances; Z98.49 Cataract extraction status, unspecified eye; E78.00 Pure hypercholesterolemia, unspecified; Y83.8 Other surgical procedures as the cause of abnormal reaction of the patient, or of later complication, without mention of misadventure at the time of the procedure; Y92.89 Other specified places as the place of occurrence of the external cause

== ENCOUNTER → 2019-11-04 | Outpatient (CLI) | payer OTHER ==
[~2019-11-04] MED LIST changes: +PLAVIX 75 MG TA75 M1 PO; +RED YEAST RICE600 MG PO; +TYLENOL325 MG PO
[2019-11-04 10:29] LABS: ABSOLUTE LYMPHOCYTES 1.7 thou/uL (0.8-5.3); ABSOLUTE MONOCYTES 0.4 thou/uL (0.0-1.2); ABSOLUTE NEUTROPHILS 4.1 thou/uL (1.6-8.1); BASOPHILS 0.8 %; EOSINOPHILS 0.5 %; HEMATOCRIT 43.6 % (37.0-47.0); HEMOGLOBIN 15.2 gm/dL (12.0-15.0); MCH 31.1 pg (26.0-34.0); MCHC 34.7 g/dL (28.0-37.0); MCV 89.6 fL (80.0-100.0); MONOCYTES 6.1 %; MPV 7.6 fl. (7.2-11.1); NUCLEATED RBCS 0 /100WBC; PLATELET COUNT* 297 thou/uL (150-400); POLYS 65.6 %; RBC 4.87 mil/uL (4.20-5.00); RDW-CV 13.8 % (10.5-14.5); URINE BILIRUBIN NEGATIVE (Negative); URINE BLOOD NEGATIVE (Negative); URINE CLARITY CLEAR; URINE COLOR YELLOW; URINE GLUCOSE-RANDOM NEGATIVE (Negative); URINE KETONES TRACE (Negative); URINE LEUKOCYTES-REFLEX 1+ (Negative); URINE NITRITE-REFLEX NEGATIVE (Negative); URINE PROTEIN NEGATIVE (Negative); URINE SPECIFIC GRAVITY >= 1.030 (1.005-1.030); URINE UROBILINOGEN 0.2 E.U./dl (0.2-1.0); WBC 6.2 thou/uL (4.0-11.0)
[2019-11-04 10:45] LABS: SQUAMOUS 0-3 Few /LPF (0-3); URINE WBC-REFLEX 0-5 Rare /HPF (0-5)
[2019-11-04 10:46] LABS: ALKALINE PHOSPHATASE 57 U/L (46-116); ANION GAP 12 mmol/L (7-16); BACTERIA-REFLEX 1-9 Few /HPF (None Seen); BUN 13 mg/dL (7-18); CALCIUM 9.3 mg/dL (8.5-10.1); CASTS None Seen /LPF (None Seen); CHLORIDE 99 mmol/L (98-107); CHOLESTEROL 226 mg/dL (<200); CO2 26 mmol/L (21-32); GLUCOSE 92 mg/dL (70-99); HDL CHOLESTEROL 47 mg/dL (>40); LDL CHOLESTEROL 149 mg/dL (<100); POTASSIUM 3.9 mmol/L (3.5-5.1); SERUM ASSESSMENT Clear; SGOT 21 U/L (15-37); SGPT 32 U/L (30-65); SODIUM 137 mmol/L (136-145); TC:HDL 4.8 Ratio (Not establshd); TOTAL BILIRUBIN 0.6 mg/dL (<0.1-1.0); TOTAL PROTEIN 7.8 g/dL (6.4-8.2); TRIGLYCERIDE 154 mg/dL (<150); URIC ACID CRYSTALS >10 Many /LPF (None Seen); VLDL 31 mg/dL (<40)
[2019-11-04 11:15] LABS: URINE RBC 0-2 Rare /HPF (0-2)
[2019-11-05 02:07] LABS: GLYCOHEMOGLOBIN (HGB A1C) 5.5 % (4.8-5.6)
== END ==
LOC: M.LAB 09:54
PROVIDERS: Family Medicine
DX: E11.8 Type 2 diabetes mellitus with unspecified complications (principal); E78.5 Hyperlipidemia, unspecified; I10 Essential (primary) hypertension; E53.8 Deficiency of other specified B group vitamins; Z87.448 Personal history of other diseases of urinary system

== ENCOUNTER 2019-11-24 13:19 | Inpatient (IN) | payer OTHER ==
[~2019-11-24] VITALS: Ht 167.6 cm; Wt 111.1 kg
[2019-11-24 13:22] VITALS: BP 124/78
[2019-11-24] MEDS ORDERED: HYDROXYZINE HCL10 M2 PO ×2 (13:34→17:51)
[2019-11-24 13:35] LABS: ABSOLUTE BASOPHILS 0.1 thou/uL (0.0-0.2); ABSOLUTE LYMPHOCYTES 1.5 thou/uL (0.8-5.3); ABSOLUTE MONOCYTES 0.3 thou/uL (0.0-1.2); ABSOLUTE NEUTROPHILS 4.1 thou/uL (1.6-8.1); BASOPHILS 0.9 %; EOSINOPHILS 0.2 %; HEMATOCRIT 43.1 % (37.0-47.0); HEMOGLOBIN 15.1 gm/dL (12.0-15.0); LYMPHOCYTES 25.7 %; MCH 31.5 pg (26.0-34.0); MCV 89.9 fL (80.0-100.0); MONOCYTES 4.8 %; MPV 7.7 fl. (7.2-11.1); NUCLEATED RBCS 0 /100WBC; PLATELET COUNT* 277 thou/uL (150-400); POLYS 68.4 %; RBC 4.79 mil/uL (4.20-5.00); RDW-CV 13.8 % (10.5-14.5)
[2019-11-24 13:43] LABS: CALCIUM 9.2 mg/dL (8.5-10.1); CREATININE 0.9 mg/dL (0.6-1.3); POTASSIUM 3.9 mmol/L (3.5-5.1)
[2019-11-24 13:54] LABS: ALBUMIN 3.9 g/dL (3.4-5.0); MAGNESIUM 1.8 mg/dL (1.8-2.4); TOTAL BILIRUBIN 0.6 mg/dL (<0.1-1.0); TOTAL PROTEIN 7.8 g/dL (6.4-8.2)
--- NOTE | 2019-11-24 15:03 | EKG ---
[place] [address] ELECTROCARDIOGRAM REPORT Name: FAUSTINO JACKSON Room: [place] [address] ADM IN .R.#: [id number] Admission: 11/24/19 Attend Phys: Jules Melendez MD Discharge: Date of : 53 Report #: [id number] THIS REPORT FOR: //name// [facility] ED Test Date: 2019-11-24 Test Time: 13:24:06 Pat Name: FAUSTINO JACKSON Department: Room: [facility] Gender: F Coding Director: : 1955 Requested By: Jozef Johns Order Number: [id number] MD: Dejon Buck Measurements Intervals [place] Rate: 86 P: 63 IA: 144 QRS: -1 QRSD: 89 T: 43 QT: 373 QTc: 446 Interpretive Statements Sinus rhythm Compared to ECG 06/18/2019 11:09:47 No significant changes Electronically Signed On 11-24-2019 15:03:09 MEDIA COORDINATOR by Dejon Buck [email or web address] <ELECTRONICALLY SIGNED> By: Dejon Buck MD, [facility] 11/24/19 1503 1324 23 Dejon Buck MD, [facility] /EPI
[2019-11-24 16:50] VITALS: BP 113/62
[2019-11-24 17:25] VITALS: BP 115/66
[2019-11-24] MEDS ORDERED: LEVEMIR100 UNIT/1 SUBQ (17:53)
--- NOTE | 2019-11-24 18:35 | NUR ---
PT ADMITTED TO TELEMETRY. PT C/O OF NECK PAIN AND BACK PAIN 01/24. ADMISSION ASSESSMENT CHARTED. VSS. AFEBRILE. NORMAL SINUS RHYTHM. PT UP AD BRITTANEY.
[2019-11-24 20:00] VITALS: BP 111/50
[2019-11-25] VITALS: BP 127/60
[2019-11-25 04:00] VITALS: BP 120/67
[2019-11-25 05:27] LABS: CALCIUM 8.8 mg/dL (8.5-10.1); CREATININE 1.1 mg/dL (0.6-1.3); POTASSIUM 4.3 mmol/L (3.5-5.1)
[2019-11-25 08:00] VITALS: BP 111/57
--- NOTE | 2019-11-25 08:23 | NUR ---
ASSUMED PT CARE AT APPROX 1930. PT IS AWAKE AND ORIENTED X4. VSS ON ROOM AIR. TEASEL GIG OPERATOR IN PLACE TRACING SR w/ occassional PVCs. PT DENIES CHEST PAIN/DISCOMFORT. PT IS ABLE TO SLEEP MOST OF THE NIGHT. ADVISED TO HAVE NOTHING BY MOUTH AFTER MIDNIGHT FOR CARDIOLOGY. CALL LIGHT WITHIN REACH. HOURLY ROUNDING DONE FOR PT SAFETY.
[2019-11-25 10:24] LABS: CHOLESTEROL 206 mg/dL (<200); HDL CHOLESTEROL 40 mg/dL (>40); LDL CHOLESTEROL 134 mg/dL (<100); TC:HDL 5.2 Ratio (Not establshd); TRIGLYCERIDE 161 mg/dL (<150); VLDL 32 mg/dL (<40)
[2019-11-25 10:25] LABS: SERUM ASSESSMENT Clear
--- NOTE | 2019-11-25 14:58 | NUR ---
Pt is A&O. Resides at home alone. Independent. Uses a walker for mobility. Hx of [facility]. No hx of SNF. Pt had cath today. Goal is home at tn. Following.
[2019-11-25 16:00] VITALS: BP 111/63
--- NOTE | 2019-11-25 19:01 | NUR ---
ASSUMED PT CARE AT 0700, PT A&O X4, UP AD BRITTANEY, RA, CAN PUSHER TRACING SINUS RHYTHM, FULL ASSESSMENT CHARTED. PT HAD HEART CATH THIS SHIFT, CATH SITE TO RIGHT GROIN IS SOFT, DRESSING IS CLEAN, DRY, AND INTACT, NO INTERVENTIONS NEEDED. PT EDUCATED ON NOT TAKING METFORMIN X24 HOURS, HOURLY ROUNDING COMPLETED.
[2019-11-25 20:00] VITALS: BP 116/56
[2019-11-25 22:33] LABS: URINE BILIRUBIN NEGATIVE (Negative); URINE BLOOD 2+ (Negative); URINE CLARITY CLEAR; URINE COLOR YELLOW; URINE GLUCOSE-RANDOM NEGATIVE (Negative); URINE KETONES NEGATIVE (Negative); URINE NITRITE-REFLEX NEGATIVE (Negative); URINE PROTEIN NEGATIVE (Negative); URINE SPECIFIC GRAVITY 1.015 (1.005-1.030); URINE UROBILINOGEN 0.2 E.U./dl (0.2-1.0)
[2019-11-25 22:35] LABS: URINE LEUKOCYTES-REFLEX 2+ (Negative)
[2019-11-25 22:44] LABS: MUCUS None Seen strn/LPF (None Seen); SQUAMOUS >10 Many /LPF (0-3)
[2019-11-25 22:45] LABS: URINE RBC 0-2 Rare /HPF (0-2); URINE WBC-REFLEX 6-15 Few /HPF (0-5)
[2019-11-25 22:46] LABS: CASTS None Seen /LPF (None Seen); CRYSTALS None Seen /LPF (None Seen)
[2019-11-26] VITALS: BP 119/57
[2019-11-26 04:00] VITALS: BP 122/60
[2019-11-26 07:45] VITALS: BP 112/57
[2019-11-26] MEDS ORDERED: CEFUROXIME500 MG PO (10:36)
[2019-11-26 13:51] VITALS: BP 112/57
[2019-11-26] MEDS ORDERED: LEVAQUIN 750 M750 MG PO (17:24)
--- NOTE | 2019-11-30 17:36 | CON ---
[address] [address] CONSULTATION Name: DOC JACKSONMIRYAM Protillo Room: [address]R.#: [id number] Admission: 11/24/19 Attend Phys: Jules Melendez MD Discharge: 11/26/19 Date of : 53 Report #: [id number] THIS REPORT FOR: //name// CC: Jules MARINO DO Pebbles aristides DATE OF SERVICE: 11/25/2019 INDICATIONS: History of coronary artery disease with chest pain. HISTORY OF PRESENT ILLNESS: The patient is a 64-year-old white female presented to the hospital yesterday afternoon with midsternal chest discomfort radiating to the shoulders, neck and back. She had associated nausea without vomiting. The pain was persistent and relieved in the Emergency Room with sublingual nitroglycerin and aspirin. 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 She is on dual antiplatelet therapy. She has preserved left ventricular systolic function by noninvasive studies. She has a history of chronic diastolic heart failure that appears compensated at this time. She has a remote history of paroxysmal supraventricular tachycardia without recurrence. PAST MEDICAL HISTORY: 1. Coronary artery disease with percutaneous coronary intervention on multiple occasions. 2. Chronic obstructive pulmonary disease. 3. Type 2 diabetes mellitus. 4. Essential hypertension. 5. Hyperlipidemia. 6. History of hyperkalemia. 7. Paroxysmal supraventricular tachycardia. PAST SURGICAL HISTORY: 1. Right breast lumpectomy. 2. Cholecystectomy. 3. Colonoscopy. 4. CT-guided catheter ablation. 5. Previous ophthalmologic surgery. 6. Coronary stent placement. FAMILY HISTORY: Positive for coronary artery disease and myocardial infarction. SOCIAL HISTORY: The patient quit smoking over 20 years ago. [place] [address] CONSULTATION Name: FAUSTINO JACKSON Room: [address]#: [id number] Admission: 11/24/19 Attend Phys: Jules Melendez MD Discharge: 11/26/19 Date of : 53 Report #: [id number] alcohol. ALLERGIES: JARDIANCE, ATORVASTATIN, CEPHALEXIN, CIPROFLOXACIN, CODEINE, EZETIMIBE, METOPROLOL, PENICILLIN, PROMETHAZINE AND TRULICITY. HOME MEDICATIONS: Tylenol p.r.n., vitamin D3 5000 units daily, Plavix 75 mg daily, CoQ10 100 mg daily, furosemide 40 mg p.r.n., garlic 1000 mg daily, guaifenesin p.r.n., Lantus 30 units at bedtime, lispro q. a.c. sliding scale, Antivert 25 mg p.r.n., Glucophage 1000 mg b.i.d., Nitrostat p.r.n., Lovaza 1 g b.i.d., Zofran p.r.n., potassium chloride 10 mEq daily, red yeast rice extract tablet daily, turmeric supplement daily, vitamin B12 1000 mcg daily, Imdur 30 mg q.a.m. PHYSICAL EXAMINATION: VITAL SIGNS: Blood pressure 120/67, pulse 67 and regular. GENERAL: This is a moderately obese, pleasant white female, in no distress. HEENT: Extraocular muscles intact. Mucous membranes are moist. NECK: Shows no jugular venous distention. There are no carotid bruits. CHEST: Reveals clear lung redman without wheezes or rales. CARDIOVASCULAR: Reveals a regular rhythm with normal S1 and S2. I do not appreciate gallop or murmur. ABDOMEN: Reveals a protuberant abdomen, soft and nontender. EXTREMITIES: Shows no edema, peripheral pulses 2+ and easily palpable. SKIN: Warm and dry. LABORATORY DATA: A 12-lead EKG shows sinus rhythm without acute ST wave abnormality. Labs are reviewed. Troponins less than 0.06 on three separate occasions. IMPRESSION AND RECOMMENDATIONS: 1. Chest discomfort consistent with possible unstable angina. We will proceed with cardiac catheterization and coronary angiography. Further intervention pending the results of those studies. 2. History of coronary artery disease. Continue medications as outlined above including antiplatelet therapy. 3. Dyslipidemia. The patient is statin intolerant. Continue regimen outlined above. In the past, she had been unable to afford PCSK9 inhibitor. 4. Hypertension, well controlled on current cardiac regimen. 5. History of paroxysmal supraventricular tachycardia without recent clinical recurrence. 6. Type 2 diabetes mellitus [place] [address] CONSULTATION Name: FAUSTINO JACKSON Room: [address] IN ..#: [id number] Admission: 11/24/19 Attend Phys: Jules Melendez MD Discharge: 11/26/19 Date of : 53 Report #: [id number] 7. History of diastolic heart failure appears relatively compensated at this point in time. We will measure left heart pressure with catheterization. <ELECTRONICALLY SIGNED> By: Jamarcus Ly MD, FACC 11/30/19 1736 1007 1446Michael Cherri Ly MD, FACC /nt
== END 2019-11-26 15:49 | disposition home or self-care (01) | DRG 303 ==
LOC: M.ERS 13:19 → M.TBA-ER 14:22 → M.2W 14:22
PROVIDERS: Emergency Medicine Emergency Medical Services; Internal Medicine Cardiovascular Disease; ADMIT Internal Medicine
DX: I25.110 Atherosclerotic heart disease of native coronary artery with unstable angina pectoris (principal); I50.32 Chronic diastolic (congestive) heart failure; I25.2 Old myocardial infarction; Z95.5 Presence of coronary angioplasty implant and graft; E11.9 Type 2 diabetes mellitus without complications; J44.9 Chronic obstructive pulmonary disease, unspecified; Z90.49 Acquired absence of other specified parts of digestive tract; I11.0 Hypertensive heart disease with heart failure; K21.9 Gastro-esophageal reflux disease without esophagitis; Z87.01 Personal history of pneumonia (recurrent); M79.7 Fibromyalgia; Z98.49 Cataract extraction status, unspecified eye; I48.91 Unspecified atrial fibrillation; Z79.01 Long term (current) use of anticoagulants; Z86.718 Personal history of other venous thrombosis and embolism; F41.1 Generalized anxiety disorder; E66.01 Morbid (severe) obesity due to excess calories; Z68.39 Body mass index [BMI] 39.0-39.9, adult; Z79.84 Long term (current) use of oral hypoglycemic drugs; Z79.4 Long term (current) use of insulin; Z79.899 Other long term (current) drug therapy; Z88.1 Allergy status to other antibiotic agents; Z88.5 Allergy status to narcotic agent; Z88.0 Allergy status to penicillin; Z88.8 Allergy status to other drugs, medicaments and biological substances; E78.5 Hyperlipidemia, unspecified; Z82.49 Family history of ischemic heart disease and other diseases of the circulatory system; R30.0 Dysuria; N30.91 Cystitis, unspecified with hematuria

== ENCOUNTER 2019-12-10 10:46 | Inpatient (IN) | payer OTHER ==
[~2019-12-10] VITALS: Ht 167.6 cm; Wt 114.4 kg
[~2019-12-10 10:46] MED LIST changes: +CEFUROXIME500 MG PO; +HYDROXYZINE HCL10 M2 PO; +LEVAQUIN 750 M750 MG PO; +LEVEMIR100 UNIT/1 SUBQ
[2019-12-10 10:48] VITALS: BP 126/88
[2019-12-10 11:28] LABS: ABSOLUTE LYMPHOCYTES 1.3 thou/uL (0.8-5.3); ABSOLUTE MONOCYTES 0.3 thou/uL (0.0-1.2); ABSOLUTE NEUTROPHILS 3.2 thou/uL (1.6-8.1); BASOPHILS 0.7 %; EOSINOPHILS 0.5 %; HEMATOCRIT 41.3 % (37.0-47.0); HEMOGLOBIN 14.5 gm/dL (12.0-15.0); LYMPHOCYTES 27.4 %; MCH 31.4 pg (26.0-34.0); MCHC 35.2 g/dL (28.0-37.0); MCV 89.3 fL (80.0-100.0); MONOCYTES 5.5 %; NUCLEATED RBCS 0 /100WBC; PLATELET COUNT* 247 thou/uL (150-400); POLYS 65.9 %; RBC 4.62 mil/uL (4.20-5.00); RDW-CV 13.4 % (10.5-14.5); WBC 4.9 thou/uL (4.0-11.0)
[2019-12-10 11:39] LABS: APTT 23.8 Seconds (25.0-31.3); INR 1.1; PROTIME 11.6 Seconds (9.20-11.50)
[2019-12-10 11:43] LABS: ANION GAP 10 mmol/L (7-16); BUN 8 mg/dL (7-18); CALCIUM 8.9 mg/dL (8.5-10.1); CHLORIDE 106 mmol/L (98-107); CO2 25 mmol/L (21-32); CREATININE 0.8 mg/dL (0.6-1.3); GLUCOSE 189 mg/dL (70-99); POTASSIUM 3.7 mmol/L (3.5-5.1); SODIUM 141 mmol/L (136-145)
[2019-12-10 11:50] LABS: ALBUMIN 3.5 g/dL (3.4-5.0); ALKALINE PHOSPHATASE 51 U/L (46-116); CK-MB MASS < 0.5 ng/mL (<0.5-3.6); LIPASE 141 U/L (73-393); MAGNESIUM 1.8 mg/dL (1.8-2.4); NT-PRO BRAIN NAT PEPTIDE 101 pg/mL (<300); SGOT 25 U/L (15-37); SGPT 35 U/L (30-65); TOTAL BILIRUBIN 0.6 mg/dL (<0.1-1.0); TOTAL PROTEIN 6.9 g/dL (6.4-8.2)
--- NOTE | 2019-12-10 14:32 | EKG ---
[place] [address] ELECTROCARDIOGRAM REPORT Name: FAUSTINO JACKSON Room: [place] [address] ADM IN .R.#: [id number] Admission: 12/10/19 Attend Phys: Sharlene Solares Discharge: Date of : 53 Report #: [id number] THIS REPORT FOR: //name// [facility] ED Test Date: 2019-12-10 Test Time: 10:50:13 Pat Name: FAUSTINO JACKSON Department: Room: [facility] Gender: F Director Of Rehabilitative Services: [facility] : 1955 Requested By: Bon Belle Order Number: [id number] MD: Dejon Buck Measurements Intervals [place] Rate: 85 P: 20 MD: 127 QRS: 17 QRSD: 88 T: 41 QT: 372 QTc: 443 Interpretive Statements Sinus rhythm Abnormal R-wave progression, early transition Baseline wander in lead(s) V2 Compared to ECG 11/24/2019 13:24:06 No significant changes Electronically Signed On 12-10-2019 14:32:00 FULL STACK JAVA DEVELOPER by Dejon Buck [email or web address] <ELECTRONICALLY SIGNED> By: Dejon Buck MD, FAC 12/10/19 1432 1050 1050 Dejon Buck MD, [facility] /EPI
[2019-12-10 16:23] VITALS: BP 143/83
[2019-12-10 16:50] VITALS: BP 126/66
[2019-12-10 20:00] VITALS: BP 124/56
[2019-12-11] VITALS (7 sets, daily range): BP systolic 94–120; BP diastolic 42–63
[2019-12-11 05:39] LABS: CHOLESTEROL 192 mg/dL (<200); HDL CHOLESTEROL 34 mg/dL (>40); LDL CHOLESTEROL 119 mg/dL (<100); TC:HDL 5.6 Ratio (Not establshd); TRIGLYCERIDE 196 mg/dL (<150); VLDL 39 mg/dL (<40)
[2019-12-11 06:04] LABS: SERUM ASSESSMENT CLEAR
[2019-12-12 04:10] VITALS: BP 135/68
[2019-12-12 13:21] VITALS: BP 105/58
[2019-12-12 15:00] VITALS: BP 113/57
[2019-12-12 15:03] LABS: CALCIUM 9.1 mg/dL (8.5-10.1); CREATININE 1.1 mg/dL (0.6-1.3)
[2019-12-12 15:09] LABS: POTASSIUM 3.9 mmol/L (3.5-5.1)
[2019-12-12 20:00] VITALS: BP 116/52
[2019-12-13 04:00] VITALS: BP 129/60
[2019-12-13 08:30] VITALS: BP 137/73
[2019-12-13 12:00] VITALS: BP 106/56
[2019-12-13 20:30] VITALS: BP 130/61
[2019-12-14 00:34] VITALS: BP 128/64
[2019-12-14 04:40] VITALS: BP 126/70
[2019-12-14 07:40] VITALS: BP 110/54
[2019-12-14 11:49] VITALS: BP 124/66
[2019-12-14 15:48] VITALS: BP 124/66
[2019-12-14] MEDS ORDERED: LANTUS SUBQ (16:07)
[2019-12-14] MEDS ORDERED: IMDUR 30 MG TAB30 M1 PO (16:08)
--- NOTE | 2019-12-14 17:19 | 2DMMODE ---
[place] [address] 2 D/M-MODE ECHOCARDIOGRAM Name: GYPSYFAUSTINO DARBY Room: [address] IN .R.#: [id number] Admission: 12/10/19 Attend Phys: David Patel Discharge: Date of : 53 Date of Service: 12/14/19 1718 Report #: [id number] THIS REPORT FOR: //name// APPROVED REPORT Study performed: 12/14/2019 16:30:42 EXAM: Comprehensive 2D, Doppler, and color-flow Echocardiogram Patient Location: Bedside BSA: 1.83 HR: 76 bpm BP: 124/66 mmHg Other Information Study Quality: Fair Indications Chest Pain 2D Dimensions IVSd: 11.28 (7-11mm) LVOT Diam: 18.34 (18-24mm) LVDd: 43.85 mm PWd: 10.45 (7-11mm) Ascending Ao: 22.43 (22-36mm) LVDs: 29.92 (25-40mm) Aortic Root: 21.81 mm Volumes Left Atrial Volume (Systole) LA ESV Index: 22.90 mL/m2 Aortic Valve AoV Peak Jayme.: 1.95 m/s AO Peak Gr.: 15.23 mmHg LVOT Max P.59 mmHg AO Mean Gr.: 8.14 mmHg LVOT Mean P.05 mmHg LVOT Max V: 1.07 m/s AO V2 VTI: 37.43 cm LVOT Mean V: 0.65 m/s VLADIMIR (VTI): 1.74 cm2 LVOT V1 VTI: 24.69 cm Mitral Valve E/A Ratio: 0.84 MV Decel. Time: 252.78 ms MV E Max Jayme.: 0.86 m/s MV PHT: 73.31 ms MVA (PHT): 3.00 cm2 [place] [address] 2 D/M-MODE ECHOCARDIOGRAM Name: FAUSTINO JACKSON Room: [address] IN [facility].#: [id number] Admission: 12/10/19 Attend Phys: David Patel Discharge: Date of : 53 Date of Service: 12/14/19 1718 Report #: [id number] TDI E/Lateral E': 10.75 E/Medial E': 10.75 Medial E' Jayme.: 0.08 m/s Lateral E' Jayme.: 0.08 m/s Pulmonary Valve PV Peak Jayme.: 1.09 m/s PV Peak Gr.: 4.78 mmHg Tricuspid Valve RAP Estimate: 5.00 mmHg TR Peak Gr.: 26.60 mmHg RVSP: 31.60 mmHg PA Pressure: 31.60 mmHg Left Ventricle The left ventricle is normal size. There is normal LV segmental wall motion. There is normal left ventricular wall thickness. Left ventricular systolic function is normal. The left ventricular ejection fraction is within the normal range. LVEF is 55-60%. Grade I - abnormal relaxation pattern. Right Ventricle The right ventricle is normal size. The right ventricular systolic function is normal. Atria The left atrium size is normal. The right atrium size is normal. Aortic Valve The Aortic valve is sclerotic. No aortic regurgitation is present. There is no aortic valvular stenosis. Mitral Valve The mitral valve is normal in structure. There is no mitral valve regurgitation noted. No evidence of mitral valve stenosis. Tricuspid Valve The tricuspid valve is normal in structure. Trace tricuspid regurgitation. Pulmonic Valve Pulmonic valve is not well visualized. There is no pulmonic valvular regurgitation[place] [address] 2 D/M-MODE ECHOCARDIOGRAM Name: FAUSTINO JACKSON Room: [address]#: [id number] Admission: 12/10/19 Attend Phys: David Patel Discharge: Date of : 53 Date of Service: 12/14/19 1718 Report #: [id number] The aortic root is normal in size. IVC is normal in size and collapses >50% with inspiration. Pericardium There is no pericardial effusion. <Conclusion> LVEF is 55-60%. The Aortic valve is sclerotic. <ELECTRONICALLY SIGNED> By: Dejon Buck MD, [facility] 12/14/191717 17 17 Dejon Buck MD, FAC /INF
== END 2019-12-14 18:07 | disposition home or self-care (01) | DRG 303 ==
LOC: M.ERS 10:46 → M.2W 14:25 → M.TBA-ER 14:25 → M.2W 16:35
PROVIDERS: Family Medicine; Internal Medicine Cardiovascular Disease; ADMIT Internal Medicine
DX: I25.10 Atherosclerotic heart disease of native coronary artery without angina pectoris (principal); I50.32 Chronic diastolic (congestive) heart failure; E66.2 Morbid (severe) obesity with alveolar hypoventilation; Z68.41 Body mass index [BMI] 40.0-44.9, adult; E11.9 Type 2 diabetes mellitus without complications; J44.9 Chronic obstructive pulmonary disease, unspecified; K21.9 Gastro-esophageal reflux disease without esophagitis; M26.609 Unspecified temporomandibular joint disorder, unspecified side; M79.7 Fibromyalgia; I48.91 Unspecified atrial fibrillation; F41.1 Generalized anxiety disorder; I11.0 Hypertensive heart disease with heart failure; K59.00 Constipation, unspecified; E78.5 Hyperlipidemia, unspecified; Z95.5 Presence of coronary angioplasty implant and graft; Z90.49 Acquired absence of other specified parts of digestive tract; Z98.49 Cataract extraction status, unspecified eye; Z86.718 Personal history of other venous thrombosis and embolism; Z79.82 Long term (current) use of aspirin; Z79.4 Long term (current) use of insulin; Z79.899 Other long term (current) drug therapy; Z88.1 Allergy status to other antibiotic agents; Z88.5 Allergy status to narcotic agent; Z88.0 Allergy status to penicillin; Z88.8 Allergy status to other drugs, medicaments and biological substances; Z87.440 Personal history of urinary (tract) infections; Z79.84 Long term (current) use of oral hypoglycemic drugs

== ENCOUNTER → 2019-12-20 | Outpatient (CLI) | payer OTHER ==
[~2019-12-20] MED LIST changes: +IMDUR 30 MG TAB30 M1 PO
--- NOTE | 2019-12-21 16:05 | SLEEP ---
[address] [address] SLEEP STUDY REPORT Name: FAUSTINO JACKSON Room: [facility]#: [id number] Admission: 12/20/19 Attend Phys: Sharlene Solares Discharge: Date of : 53 Report #: [id number] THIS REPORT FOR: //name// CC: Pebbles Patel This study has been reviewed in its entirety by a board certified sleep specialist DATE OF SERVICE: 12/20/2019 SLEEP STUDY REFERRING PHYSICIAN: Jamarcus Ly MD. The patient is a 64-year-old who weighs 239 pounds with a BMI of 38.6. The patient's [place] score was 3. The patient underwent diagnostic sleep study performed at [facility]. During the night study, the patient spent 411 minutes in bed and slept for 197 minutes with a low sleep efficiency of 48%. Sleep latency was 63 minutes with a REM latency of 201 minutes. Sleep architecture showed normal stage 1 sleep, slightly increased stage 2 sleep, normal slow wave and normal REM sleep. During the night study, the patient had no apneas. The patient had 15 hypopneas. The patient's apnea-hypopnea index was 4.6 per hour with a REM index of 7.9 per hour and a supine index of 8.4 per hour. Nocturnal oximetry study revealed a mean oxygen saturation of 95% with the lowest of 91%. EKG monitoring revealed an average heart rate of 68 beats per minute, no sustained arrhythmias observed. PLMS were seen at an index of 18 per hour, 9 per hour caused EEG arousals. Due to low AHI, the patient did not meet the split night criteria for CPAP initiation. IMPRESSION: 1. Overall, no clinically significant sleep disordered breathing. The patient did have mild positional and REM sleep related hypopneas. Total AHI of 4.6 per hour with a REM AHI of 7.9 per hour and a supine AHI of 9.5 per hour. 2. No clinically significant nocturnal hypoxia. 3. [id number] [place] [address] SLEEP STUDY REPORT Name: GYPSYWILNERDOCMIRYAM Portillo Room: [facility]#: [id number] Admission: 12/20/19 Attend Phys: Sharlene Solares Discharge: Date of : 53 Report #: [id number] 4. Sleep onset and sleep maintenance insomnia. RECOMMENDATIONS: 1. The patient did not meet the split night criteria for CPAP initiation due to low AHI. 2. Avoid supine sleep. 3. The patient's PLMS does not need to be treated unless the patient has symptoms of restless legs during the day. 4. Weight loss is advised. 5. Avoid MUSIC PUBLISHER depressants. 6. Treatment of insomnia according to the etiology. <ELECTRONICALLY SIGNED> By: Fritz Hernandez MD 12/21/19 1605 1408 1453Aman Marcos Hernandez MD /amilcar
== END ==
LOC: M.SLEEPLAB 21:00
DX: G47.33 Obstructive sleep apnea (adult) (pediatric) (principal)

== ENCOUNTER 2019-12-28 07:24 | Observation (INO) | payer OTHER ==
[~2019-12-28] VITALS: Ht 152.4 cm; Wt 106.6 kg
[2019-12-28] VITALS (11 sets, daily range): BP systolic 103–130; BP diastolic 51–72
[2019-12-28 08:38] LABS: HEMATOCRIT 41.5 % (37.0-47.0); HEMOGLOBIN 14.6 gm/dL (12.0-15.0); MCH 31.5 pg (26.0-34.0); MCHC 35.3 g/dL (28.0-37.0); MCV 89.3 fL (80.0-100.0); MPV 7.8 fl. (7.2-11.1); RBC 4.65 mil/uL (4.20-5.00); RDW-CV 13.1 % (10.5-14.5); WBC 5.3 thou/uL (4.0-11.0)
[2019-12-28 08:54] LABS: APTT 22.2 Seconds (25.0-31.3); INR 1.1; PROTIME 11.3 Seconds (9.20-11.50)
[2019-12-28 08:55] LABS: CALCIUM 9.1 mg/dL (8.5-10.1); CREATININE 0.7 mg/dL (0.6-1.3); POTASSIUM 3.9 mmol/L (3.5-5.1)
--- NOTE | 2019-12-28 13:48 | CARD ---
[address] [address] CARDIAC CATH REPORT Name: FAUSTINO JACKSON Room: [address] Christopher Martinez#: [id number] Admission: 12/28/19 Attend Phys: Jamarcus Ly MD Discharge: Date of : 53 Report #: [id number] THIS REPORT FOR: //name// cc: Pebbles Beltran Maggie M. DO ~ THIS REPORT FOR: //name// APPROVED REPORT Study performed: 12/28/2019 09:02:57 Patient Details Patient Status: Out-Patient Room #: The patient is a 64 year-old female Event Personnel Misha De Jesus RTR Monitor, Olinda aDvis RN RN, Jules Beverly Liston, Michael Electric Motor Control Assembler, Ben Pack Electric Motor Control Assembler Procedures Performed Left Heart Cath w/or w/o Coronaries [id number] [facility] CARLO Revasc AMI Total/Sub Single RCA C[address] w/wo Plasty Single Left Main 398552 Hemostasis w/ Angioseal Indication Unstable angina Risk Factors Hypercholesterolemia, Hypertension Previous Procedures/Diagnoses Previous PCI Admission/Lab Medications/Medications given during procedure Lidocaine Subcut 20 ml, Fentanyl IV 50 mcg, Midazolam (Versed) IV 2 mg, Angiomax IV 7.5 ml, Angiomax IV 36.2 mg per kg, Fentanyl IV 25 mcg, Midazolam (Versed) IV 1 mg, Angiomax IV 4 ml, Aspirin PO 162 mg, Effient PO 60 mg Procedure Narrative The patient was brought electively to the Cardiac Catheterization Laboratory and was prepped and draped in a sterile manner. The right femoral was infiltrated with 2% [place] [address] CARDIAC CATH REPORT Name: FAUSTINO JACKSON Room: [address] Eleanor.#: [id number] Admission: 12/28/19 Attend Phys: Jamarcus Ly MD Discharge: Date of : 53 Report #: [id number] Hestand 6 FR sheath was inserted into the right femoral artery. Coronary angiography was performed using coronary diagnostic catheters. The right coronary system was accessed and visualized with a Diagnostic AR 1 MOD 6Fr catheter. The left coronary system was accessed and visualized with a Diagnostic JL4 6Fr catheter. Closure device was deployed with a 6 Fr Angioseal. The patient tolerated the procedure well and there were no complications associated with the procedure. There was no hematoma. Intraoperative Conscious Sedation Sedation start time: 935 Case end Time: 1051 Fentanyl 75 mcg Versed 3 mg Fluoro Time: 28.1 minutes Dose: DAP 779112 cGycm2 3713.03 mGy Contrast Type and Amount: Visipaque 350 ml Diagnostic Cath Left Main 75% distal narrowing extending into the very proximal LAD LAD 75% ostial narrowing Circumflex 70% very proximal narrowing after the stenting of the distal left main Right Coronary 90% proximal stenosis with 50% proximalmid vessel narrowing with an anomalous origin branch of the circumflex originating from the right coronary ostium Left Ventriculography Left Ventriculography was not performed. Hemodynamics The aortic pressure is 137/69 mmHg with a mean of 98 mmHg. PCI Technique Lesion Anticoagulation was achieved with Angiomax. Percutaneous coronary intervention was performed on the proximal right coronary artery. The lesion stenosis prior to intervention was 90% with AVELINO flow. A 6Fr AR 1 Guide Catheter was used to engage the Right ostium. A IG: BMW 190cm Interventional Guidewire was used to cross the lesion. BALLOON DILATION A Balloon catheter Trek RX 2.5 X 8 was inserted and inflated up to 10.00atm for 11seconds. Additional Inflation: 10.00atm for 10seconds. Additional Inflation: 14.00atm [place] 11[place] [address] CARDIAC CATH REPORT Name: FAUSTINO JACKSON Room: [address] MJohnRJohn#: [id number] Admission: 12/28/19 Attend Phys: Jamarcus Ly MD Discharge: Date of : 53 Report #: [id number] STENT DEPLOYMENT A drug-eluting stent Xience Nani 2.5X12mm was inserted and inflated up to 12.00atm for 11seconds. Additional Inflation: 14.00atm for 10seconds. Final angiography reveals 0 % stenosis with AVELINO 3 flow. PCI Technique Lesion 2 Percutaneous Coronary Intervention was performed on the distal left main coronary artery extending into the very proximal LAD. A 6F XB LAD 3.5 Guide Catheter was used to engage the Left ostium. A IG: BMW 190cm Interventional Guidewire was used to cross the lesion. Balloon Dilation A Balloon catheter NC Trek RX 3.0 X 15 was inserted and inflated up to 12.00atm for 15seconds. Additional Inflation: 16.00atm for 12seconds. Additional Inflation: 12.00atm for 13seconds. A Cutting Balloon Angiosculpt 3.0x10 was inserted and inflated to 14 MARQUIS for 13 sec,Additional Inflations of 16 MARQUIS for 16 sec Stent Deployment A drug-eluting stent Xience Nani 3.5X18mm was inserted and inflated up to 10.00atm for 10seconds. Additional Inflation: 15.00atm for 9seconds. Post Stent Deployment Balloon Dilation A Balloon catheter NC Trek RX 3.0 X 15 was inserted and inflated up to 10.00atm for 5seconds. Additional Inflation: 14.00atm for 13seconds. Additional Inflation: 6.00atm for 5seconds. Final angiography reveals 10 % stenosis with AVELINO 3 flow. Conclusion #1 significant coronary artery disease characterized by the following: A 75% distal left main coronary stenosis extending into the very proximal LAD B 70% ostial circumflex narrowing C 90% very proximal right coronary stenosis this being a dominant vessel with an anomalous origin marginal branch of the circumflex from the right coronary ostium [address] [address] CARDIAC CATH REPORT Name: FAUSTINO JACKSON Room: 160- ADM Christopher Martinez#: [id number] Admission: 12/28/19 Attend Phys: Jamarcus Ly MD Discharge: Date of : 53 Report #: [id number] #2 successful percutaneous coronary intervention with deployment of drug-eluting stent at the site of 90% proximal right coronary stenosis with 0% residual narrowing #3 successful PCI with deployment of a drug-eluting stent following atherectomy at the site of tubular 75% left main coronary artery stenosis with 10% residual narrowing #4 successful PTCA at the site of 70% ostial circumflex narrowing with 10% residual narrowing and AVELINO-3 flow to the distal vessel Recommendations Cardiac Risk Reduction Program Aggressive Medical Therapy Medications Administered Aspirin (any) Prasugrel Diagnostic Cath Approved by: Jamarcus Ly MD Date/Time: 12/28/2019 13:37:33 <ELECTRONICALLY SIGNED> By: Ben Pack MD, FACC 12/28/19 1347 1347 1347Ben Pack MD, FACC /INF
[2019-12-29] VITALS: BP 108/51
[2019-12-29 04:00] VITALS: BP 117/58
[2019-12-29 05:15] LABS: HEMATOCRIT 36.1 % (37.0-47.0); HEMOGLOBIN 12.7 gm/dL (12.0-15.0); MCH 31.6 pg (26.0-34.0); MCHC 35.2 g/dL (28.0-37.0); MCV 89.7 fL (80.0-100.0); MPV 7.3 fl. (7.2-11.1); RBC 4.02 mil/uL (4.20-5.00); RDW-CV 12.9 % (10.5-14.5); WBC 4.7 thou/uL (4.0-11.0)
[2019-12-29 05:31] LABS: ALBUMIN 2.9 g/dL (3.4-5.0); ALKALINE PHOSPHATASE 51 U/L (46-116); ANION GAP 6 mmol/L (7-16); BUN 11 mg/dL (7-18); CALCIUM 7.9 mg/dL (8.5-10.1); CHLORIDE 109 mmol/L (98-107); CHOLESTEROL 192 mg/dL (<200); CO2 28 mmol/L (21-32); CREATININE 0.7 mg/dL (0.6-1.3); GLUCOSE 191 mg/dL (70-99); HDL CHOLESTEROL 32 mg/dL (>40); LDL CHOLESTEROL 115 mg/dL (<100); POTASSIUM 3.9 mmol/L (3.5-5.1); SGOT 18 U/L (15-37); SGPT 29 U/L (30-65); SODIUM 143 mmol/L (136-145); TOTAL BILIRUBIN 0.3 mg/dL (<0.1-1.0); TOTAL PROTEIN 5.9 g/dL (6.4-8.2); TRIGLYCERIDE 229 mg/dL (<150); TROPONIN-I LEVEL 0.53 ng/mL (<0.06); VLDL 46 mg/dL (<40)
[2019-12-29 05:40] LABS: SERUM ASSESSMENT Clear
[2019-12-29 08:00] VITALS: BP 131/82
[2019-12-29] MEDS ORDERED: EFFIENT10 MG PO (09:15)
[2019-12-29 11:10] VITALS: BP 124/54
[2019-12-29 11:38] VITALS: BP 121/63
--- NOTE | 2019-12-29 13:45 | EKG ---
[place] [address] ELECTROCARDIOGRAM REPORT Name: MANUELFAUSTINO Portillo Room: [address] M.R.#: [id number] Admission: 12/28/19 Attend Phys: Jamarcus Ly, Discharge: Date of : 53 Date of Service: 12/28/19 1213 Report #: [id number] THIS REPORT FOR: cc: Pebbles Beltran Maggie M. DO Holkins, John M. MD [facility] ~ THIS REPORT FOR: //name// [facility] Test Date: 2019-12-28 Test Time: 12:13:13 Pat Name: FAUSTINO JACKSON Department: Room: [facility] Gender: F Master Fire Control Technician: : 1955 Requested By: Ben Pack Order Number: [id number] Reading MD: Ben Pack Measurements Intervals [place] Rate: 82 P: 64 NC: 162 QRS: 27 QRSD: 88 T: 47 QT: 399 QTc: 466 Interpretive Statements Sinus rhythm Compared to ECG 12/10/2019 10:50:13 No significant changes Electronically Signed On 12-28-2019 12:55:19 SORTER UPHOLSTERY PARTS by Ben Pack [email or web address] <ELECTRONICALLY SIGNED> By: Ben Pack MD, [facility] 12/28/19 1255 1213 1213 Ben Pack MD, [facility] /EPI
--- NOTE | 2019-12-29 13:45 | EKG ---
[place] [address] ELECTROCARDIOGRAM REPORT Name: MANUELFAUSTINO Portillo Room: [address] M.R.#: [id number] Admission: 12/28/19 Attend Phys: Jamarcus Ly, Discharge: Date of : 53 Date of Service: 12/28/19 0859 Report #: [id number] THIS REPORT FOR: cc: Pebbles Beltran Maggie M. DO Holkins,Ben Webster MD [facility] THIS REPORT FOR: //name// [facility] Test Date: 2019-12-28 Test Time: 08:59:37 Pat Name: FAUSTINO JACKSON Department: Room: [facility] Gender: F Proofer Apprentice: : 1955 Requested By: Jamarcus Ly Order Number: [id number] Reading : Ben Pack Measurements Intervals [place] Rate: 74 P: 54 AK: 161 QRS: 9 QRSD: 87 T: 43 QT: 407 QTc: 452 Interpretive Statements Sinus rhythm Ventricular premature complex Compared to ECG 12/10/2019 10:50:13 Ventricular premature complex(es) now present Electronically Signed On 12-28-2019 12:52:42 AIRPORT OPERATIONS DUTY MANAGER by Ben Pack [email or web address] <ELECTRONICALLY SIGNED> By: Ben Pack MD, [facility] 12/28/19 1252 0859 0859 Ben Pack MD, [facility] /EPI
--- NOTE | 2019-12-29 13:45 | EKG ---
[place] [address] ELECTROCARDIOGRAM REPORT Name: MANUELFAUSTINO Bandar Room: [address] M.R.#: [id number] Admission: 12/28/19 Attend Phys: Jamarcus Ly, Discharge: Date of : 53 Date of Service: 12/29/19 0838 Report #: [id number] THIS REPORT FOR: cc: Pebbles Beltran Maggie M. DO Holkins, John M. MD [facility] THIS REPORT FOR: //name// [facility] Test Date: 2019-12-29 Test Time: 08:38:14 Pat Name: FAUSTINO JACKSON Department: Room: [facility] Gender: F Health And Safety Consultant: : 1955 Requested By: Ben Pack Order Number: [id number] Reading MD: Ben Pack Measurements Intervals [place] Rate: 76 P: 52 NV: 160 QRS: 2 QRSD: 82 T: 46 QT: 400 QTc: 450 Interpretive Statements Sinus rhythm Compared to ECG 12/28/2019 12:13:13 No significant changes Electronically Signed On 12-29-2019 10:05:59 THREADING MACHINE TENDER by Ben Pack [email or web address] <ELECTRONICALLY SIGNED> By: Ben Pack MD, [facility] 12/29/19 1005 7 7 Ben Pack MD, [facility] /EPI
[2019-12-29 17:10] VITALS: BP 123/66
--- NOTE | 2019-12-30 17:40 | D ---
[address] [address] DISCHARGE SUMMARY Name: FAUSTINO JACKSON Room: [address] Christopher Martinez#: [id number] Admission: 12/28/19 Attend Phys: Jamarcus Ly MD Discharge: 12/29/19 Date of : 53 Report #: [id number] THIS REPORT FOR: //name// cc: Pebbles Beltran Maggie M. DO THIS REPORT FOR: //name// CC: Pebbles Le DISCHARGE DIAGNOSES: 1. Coronary artery disease. 2. Unstable angina. 3. Hypertension. 4. Dyslipidemia. 5. Type 2 diabetes mellitus. 6. Chronic diastolic heart failure. 7. STATIN intolerance. PROCEDURES DURING THE HOSPITALIZATION: 1. Left heart catheterization, coronary angiography. 2. Percutaneous coronary intervention to the left main coronary artery. 3. Percutaneous coronary intervention to the proximal right coronary artery. HOSPITAL COURSE: The patient was brought to the cardiac catheterization lab with continued exertional chest discomfort consistent with unstable angina. The patient was found to have 80% proximal right coronary stenosis just distal to a previously placed stent for which she had a drug-eluting stent placed without complication. The patient also had a long tubular 70% left main stenosis for which she had a drug-eluting stent placed without complication. The patient tolerated the procedure well and was observed overnight. She is being discharged in stable condition. DISCHARGE MEDICATIONS: Will include Tylenol p.r.n., aspirin 81 mg daily, vitamin D3 5000 units daily, Effient 10 mg daily, CoQ10 100 mg daily, furosemide 40 mg p.r.n., garlic 1000 mg daily, Atarax 10 mg t.i.d. p.r.n., meclizine 12.5 mg q. 6 hours p.r.n., metformin 1000 mg b.i.d. to be resumed tomorrow, Nitrostat 0.4 mg sublingual p.r.n., fish oil, Lovaza 1 gram 2 tablets daily, Zofran 4 mg q. 8 hours p.r.n., potassium chloride 10 mEq to be taken 2 tablets with furosemide, turmeric 500 mg 1 [place] [address] DISCHARGE SUMMARY Name: FAUSTINO JACKSON Room: [address] Michelle#: [id number] Admission: 12/28/19 Attend Phys: Jamarcus Ly MD Discharge: 12/29/19 Date of : 53 Report #: [id number] DISPOSITION: The patient will follow up with the nurse practitioner in 1 month and myself in 3 months. <ELECTRONICALLY SIGNED> By: Jamarcus Ly MD, [facility] 12/30/19 1740 0922 0948[facility] Ly MD, JANC /nt
== END 2019-12-29 18:20 | disposition home or self-care (01) ==
LOC: M.CL 07:24 → M.TBA-CV 11:30 → M.2W 16:54
PROVIDERS: Internal Medicine; ADMIT Internal Medicine Cardiovascular Disease
DX: I25.110 Atherosclerotic heart disease of native coronary artery with unstable angina pectoris (principal); E78.5 Hyperlipidemia, unspecified; I11.0 Hypertensive heart disease with heart failure; I50.32 Chronic diastolic (congestive) heart failure; E11.9 Type 2 diabetes mellitus without complications

== ENCOUNTER 2020-01-05 18:24 | Emergency (ER) | payer OTHER ==
[~2020-01-05] VITALS: Ht 167.6 cm; Wt 105.2 kg
[2020-01-05 19:08] LABS: ABSOLUTE BASOPHILS 0.1 thou/uL (0.0-0.2); ABSOLUTE LYMPHOCYTES 1.9 thou/uL (0.8-5.3); ABSOLUTE MONOCYTES 0.4 thou/uL (0.0-1.2); ABSOLUTE NEUTROPHILS 3.3 thou/uL (1.6-8.1); BASOPHILS 1.4 %; EOSINOPHILS 0.6 %; HEMATOCRIT 40.1 % (37.0-47.0); HEMOGLOBIN 14.2 gm/dL (12.0-15.0); LYMPHOCYTES 33.2 %; MCH 31.6 pg (26.0-34.0); MCHC 35.3 g/dL (28.0-37.0); MCV 89.3 fL (80.0-100.0); MONOCYTES 7.5 %; MPV 7.5 fl. (7.2-11.1); NUCLEATED RBCS 0 /100WBC; PLATELET COUNT* 280 thou/uL (150-400); POLYS 57.3 %; RBC 4.49 mil/uL (4.20-5.00); RDW-CV 13.2 % (10.5-14.5); WBC 5.7 thou/uL (4.0-11.0)
[2020-01-05 19:13] LABS: POTASSIUM 3.9 mmol/L (3.5-5.1)
[2020-01-05 19:14] LABS: APTT 23.8 Seconds (25.0-31.3); INR 1.1; PROTIME 11.3 Seconds (9.20-11.50)
[2020-01-05 19:24] LABS: ALBUMIN 3.6 g/dL (3.4-5.0); TOTAL BILIRUBIN 0.5 mg/dL (<0.1-1.0); TOTAL PROTEIN 7.3 g/dL (6.4-8.2)
[2020-01-05 21:03] VITALS: BP 153/73
--- NOTE | 2020-01-06 11:17 | EKG ---
[place] [address] ELECTROCARDIOGRAM REPORT Name: FAUSTINO JACKSON Room: [facility]#: [id number] Admission: 01/05/20 Attend Phys: Discharge: 01/05/20 Date of : 53 Date of Service: 01/05/201833 Report #: [id number] THIS REPORT FOR: //name// [facility] ED Test Date: 2020-01-05 Test Time: 18:34:27 Pat Name: FAUSTINO JACKSON Department: Room: Gender: F Associate: : 1955 Requested By: Selina Santana Order Number: [id number] MD: Jamarcus Ly Measurements Intervals [place] Rate: 83 P: 55 W[place]: 165 QRS: 20 QRSD: 85 T: 51 QT: 366 QTc: 430 Interpretive Statements Sinus rhythm Ventricular premature complex Compared to ECG 12/29/2019 08:38:14 Ventricular premature complex(es) now present Electronically Signed On 01-06-2020 11:16:58 REAL ESTATE OFFICE MANAGER by Jamarcus Ly [email or web address] <ELECTRONICALLY SIGNED> By: Jamarcus Ly MD, FACC 01/06/20 1116 1834 1834 Jamarcus Ly MD, [facility] /EPI
== END 2020-01-05 21:03 | disposition home or self-care (01) ==
LOC: M.ERS 18:24
PROVIDERS: Physician Assistant
DX: R07.89 Other chest pain (principal); R51 Headache; I11.0 Hypertensive heart disease with heart failure; I50.9 Heart failure, unspecified; E11.9 Type 2 diabetes mellitus without complications; K21.9 Gastro-esophageal reflux disease without esophagitis; M79.7 Fibromyalgia; I25.2 Old myocardial infarction; Z90.49 Acquired absence of other specified parts of digestive tract; Z88.1 Allergy status to other antibiotic agents; Z88.0 Allergy status to penicillin; Z88.8 Allergy status to other drugs, medicaments and biological substances

== ENCOUNTER 2020-02-12 16:28 | Emergency (ER) | payer OTHER ==
[~2020-02-12] VITALS: Ht 167.6 cm; Wt 102.1 kg
[2020-02-12 17:52] LABS: ABSOLUTE LYMPHOCYTES 1.4 thou/uL (0.8-5.3); ABSOLUTE MONOCYTES 0.4 thou/uL (0.0-1.2); ABSOLUTE NEUTROPHILS 4.6 thou/uL (1.6-8.1); BASOPHILS 0.7 %; EOSINOPHILS 0.6 %; HEMOGLOBIN 14.4 gm/dL (12.0-15.0); LYMPHOCYTES 21.2 %; MCH 31.5 pg (26.0-34.0); MCHC 35.2 g/dL (28.0-37.0); MCV 89.5 fL (80.0-100.0); MONOCYTES 6.6 %; MPV 7.6 fl. (7.2-11.1); NUCLEATED RBCS 0 /100WBC; PLATELET COUNT* 267 thou/uL (150-400); POLYS 70.9 %; RBC 4.58 mil/uL (4.20-5.00); RDW-CV 13.2 % (10.5-14.5); WBC 6.4 thou/uL (4.0-11.0)
[2020-02-12 18:01] LABS: CALCIUM 9.4 mg/dL (8.5-10.1); CREATININE 0.8 mg/dL (0.6-1.3)
[2020-02-12 18:02] LABS: INR 1.1
[2020-02-12 18:05] LABS: ALBUMIN 3.6 g/dL (3.4-5.0); TOTAL BILIRUBIN 0.6 mg/dL (<0.1-1.0); TOTAL PROTEIN 7.1 g/dL (6.4-8.2)
[2020-02-12 19:25] VITALS: BP 122/70
--- NOTE | 2020-02-14 10:19 | EKG ---
[place] [address] ELECTROCARDIOGRAM REPORT Name: FAUSTINO JACKSON Room: [facility]#: [id number] Admission: 02/12/20 Attend Phys: Discharge: 02/12/20 Date of : 53 Date of Service: 02/12/20 1632 Report #: [id number] THIS REPORT FOR: //name// [facility] ED Test Date: 2020-02-12 Test Time: 16:32:47 Pat Name: FAUSTINO JACKSON Department: Room: Gender: F Flask Cleaner: : 1955 Requested By: Maya Tovar Order Number: [id number] MD: Dejon Buck Measurements Intervals [place] Rate: 89 P: 140 NM: 126 QRS: -8 QRSD: 92 T: 133 QT: 370 QTc: 451 Interpretive Statements Sinus or ectopic atrial rhythm Ventricular premature complex Low voltage, extremity leads Abnormal R-wave progression, early transition Nonspecific T abnormalities, lateral leads Compared to ECG 01/05/2020 18:34:27 Ectopic atrial rhythm now present Low QRS voltage now present T-wave abnormality now present Sinus rhythm no longer present Electronically Signed On 02-14-2020 10:18:31 CDT by Dejon Buck [email or web address] <ELECTRONICALLY SIGNED> By: Dejon Buck MD, [facility] 02/14/20 1018 1632 1632 Dejon Buck MD, [facility] /EPI
== END 2020-02-12 19:26 | disposition home or self-care (01) ==
LOC: M.ERS 16:28
PROVIDERS: Personal Emergency Response Attendant
DX: I95.9 Hypotension, unspecified (principal); R53.1 Weakness; J44.9 Chronic obstructive pulmonary disease, unspecified; I25.10 Atherosclerotic heart disease of native coronary artery without angina pectoris; I11.0 Hypertensive heart disease with heart failure; I50.32 Chronic diastolic (congestive) heart failure; E11.9 Type 2 diabetes mellitus without complications; K21.9 Gastro-esophageal reflux disease without esophagitis; M79.7 Fibromyalgia; E66.01 Morbid (severe) obesity due to excess calories; Z88.1 Allergy status to other antibiotic agents; Z88.5 Allergy status to narcotic agent; Z88.0 Allergy status to penicillin; Z88.8 Allergy status to other drugs, medicaments and biological substances; Z90.49 Acquired absence of other specified parts of digestive tract; Z87.01 Personal history of pneumonia (recurrent); Z68.36 Body mass index [BMI] 36.0-36.9, adult; Z95.5 Presence of coronary angioplasty implant and graft; Z79.4 Long term (current) use of insulin

== ENCOUNTER 2020-04-05 18:24 | Inpatient (IN) | payer OTHER ==
[~2020-04-05] VITALS: Ht 167.6 cm; Wt 110.8 kg
[~2020-04-05 18:24] MED LIST changes: +VITAMIN D3 COM1 EACH PO; -VITAMIN D5000 UNIT PO
[2020-04-05 18:25] VITALS: BP 134/71
[2020-04-05] MEDS ORDERED: MAGNESIUM250 M1 PO (18:38)
[2020-04-05] MEDS ORDERED: B12 ACTIVE1000 MCG INJECTION (18:38)
[2020-04-05 19:02] LABS: ABSOLUTE BASOPHILS 0.1 thou/uL (0.0-0.2); ABSOLUTE EOSINOPHILS 0.1 thou/uL (0.0-0.7); ABSOLUTE LYMPHOCYTES 1.7 thou/uL (0.8-5.3); ABSOLUTE MONOCYTES 0.4 thou/uL (0.0-1.2); ABSOLUTE NEUTROPHILS 4.5 thou/uL (1.6-8.1); BASOPHILS 1.3 %; EOSINOPHILS 0.8 %; HEMATOCRIT 41.2 % (37.0-47.0); HEMOGLOBIN 14.4 gm/dL (12.0-15.0); LYMPHOCYTES 25.5 %; MCH 31.3 pg (26.0-34.0); MCHC 34.9 g/dL (28.0-37.0); MCV 89.8 fL (80.0-100.0); MONOCYTES 5.8 %; MPV 7.8 fl. (7.2-11.1); NUCLEATED RBCS 0 /100WBC; PLATELET COUNT* 273 thou/uL (150-400); POLYS 66.6 %; RBC 4.59 mil/uL (4.20-5.00); RDW-CV 13.2 % (10.5-14.5); WBC 6.8 thou/uL (4.0-11.0)
[2020-04-05 19:19] LABS: CALCIUM 9.1 mg/dL (8.5-10.1); CREATININE 1.1 mg/dL (0.6-1.3)
[2020-04-05 19:34] LABS: ALBUMIN 3.5 g/dL (3.4-5.0); MAGNESIUM 2.1 mg/dL (1.8-2.4); TOTAL BILIRUBIN 0.4 mg/dL (<0.1-1.0); TOTAL PROTEIN 6.9 g/dL (6.4-8.2)
[2020-04-05 22:04] LABS: URINE BILIRUBIN NEGATIVE (Negative); URINE BLOOD NEGATIVE (Negative); URINE CLARITY CLEAR; URINE COLOR YELLOW; URINE GLUCOSE-RANDOM TRACE (Negative); URINE KETONES NEGATIVE (Negative); URINE LEUKOCYTES-REFLEX TRACE (Negative); URINE NITRITE-REFLEX NEGATIVE (Negative); URINE PROTEIN NEGATIVE (Negative); URINE UROBILINOGEN 0.2 E.U./dl (0.2-1.0)
[2020-04-05 22:13] LABS: BACTERIA-REFLEX 1-9 Few /HPF (None Seen); CRYSTALS None Seen /LPF (None Seen); HYALINE CASTS 0-3 Few /LPF (None Seen); SQUAMOUS 0-3 Few /LPF (0-3); URINE RBC 0-2 Rare /HPF (0-2); URINE WBC-REFLEX 0-5 Rare /HPF (0-5)
[2020-04-05 23:58] VITALS: BP 117/54
[2020-04-06 00:34] VITALS: BP 124/67
[2020-04-06] MEDS ORDERED: ALOE VERA25 MG PO (01:41)
[2020-04-06] MEDS ORDERED: HYDROXYZINE HCL10 M2 PO (01:41)
[2020-04-06] MEDS ORDERED: VITAMIN C250 M1 PO (01:42)
[2020-04-06] MEDS ORDERED: MELATONIN1 MG PO (01:42)
[2020-04-06] MEDS ORDERED: MIRALAX119 GM PO (01:42)
[2020-04-06 04:00] VITALS: BP 102/54
--- NOTE | 2020-04-06 04:57 | NUR ---
REPORT RECIEVED FROM ER. PT ORIENTED TO ROOM, CALL LIGHT SHOWN. FALL AGREEMENT WENT OVER, PT STATED UNDERSTANDING. ADMISSION DOCUMENTED. IV PATENT, FLUIDS INFUSING. PAIN AND NAUSEA MEDS GIVEN PER E-MAR. PT REFUSES TO WALK TO BATHROOM, STATING SHE JUST NEEDS TO USE THE BEDSIDE COMMODE FOR NOW. SCD'S IN PLACE. FALL PRECAUTIONS IN PLACE. WILL CONTINUE WITH PLAN OF CARE.
[2020-04-06 07:26] VITALS: BP 113/56
--- NOTE | 2020-04-06 08:09 | EKG ---
[place] [address] ELECTROCARDIOGRAM REPORT Name: FAUSTINO JACKSON Room: [address]#: [id number] Admission: 04/05/20 Attend Phys: Jules Melendez, Discharge: Date of : 53 Date of Service: 04/05/20 1829 Report #: [id number] THIS REPORT FOR: //name// [facility] ED Test Date: 2020-04-05 Test Time: 18:29:27 Pat Name: FAUSTINO BETANCURWILNER Department: Room: [facility] Gender: F Loss Prevention Analyst: TERESA : 1955 Requested By: Jozef Johns Order Number: [id number] MD: Jamarcus Ly Measurements Intervals [place] Rate: 93 P: 47 DE: 134 QRS: 26 QRSD: 82 T: 52 QT: 362 QTc: 451 Interpretive Statements Sinus rhythm Compared to ECG 02/12/2020 16:32:47 Ectopic atrial rhythm no longer present Ventricular premature complex(es) no longer present T-wave abnormality no longer present Electronically Signed On 04-06-2020 8:07:50 CDT by Jamarcus Ly [email or web address] <ELECTRONICALLY SIGNED> By: Jamarcus Ly MD, FACC 04/06/20 0807 182 182 Jamarcus Ly MD, FAC /EPI
--- NOTE | 2020-04-06 08:24 | NUR ---
ASSUMED CARE OF PT THIS AM AROUND 714- FARM SERVICE ADVISER IN PLACE ORDERED TRACING SR- UPON ASSESSMENT PT NOTED TO BE RESTING IN BED, WATCHING TV- PT A&O X4- CONT OF B/B, REPORTS OF BURNING WITH URINATION THIS AM- SBA WITH TRANSFERS FOR SAFETY- LCTA/DIMINISHED IN BASES- VSS, O2 SAT 97% ON 2L VIA NC- ABD SOFT/OBESE/NON-TENDER, BS X4 QUADS- LAST BM REPORTED 04/05/20- IV NOTED TO RIGHT FA INTACT, IVF INFUSSING PRESCRIBED- BS MONITORED ORDERED- PT CURRENTLY NPO ORDERED-PT REPORTS CHEST PAIN 01/24 TO CHEST THAT COMES AND GOES AND FEELS LIKE FLUTTER FEELING- CALL LIGHT AND PERSONAL BELONGINGS WITH IN REACH- PT MAKES NEEDS KNOWN- ALL NEEDS MET AT THIS TIME-WCTM
[2020-04-06 11:33] VITALS: BP 145/75
--- NOTE | 2020-04-06 14:29 | NUR ---
SW called pt to complete initial assessment, introduce self, and SW role. pt lives at home alone. Pt has hx with [facility] HH services. Pt has DME: RW, cane, bath bench, cpap. Pt says she does still have a [employer] nurse who checks on her. Pt said she is very anxious and wonders what can be done to assist with her heartbeat and shortness of breath and then consequent anxiety. SW to continue to follow to assist with safe dc planning.
[2020-04-06 15:56] VITALS: BP 158/72
[2020-04-06 20:00] VITALS: BP 132/77
[2020-04-07] VITALS (7 sets, daily range): BP systolic 104–139; BP diastolic 55–69
[2020-04-07 04:42] LABS: HEMATOCRIT 33.4 % (37.0-47.0); MCH 31.9 pg (26.0-34.0); MCHC 35.5 g/dL (28.0-37.0); MCV 89.9 fL (80.0-100.0); MPV 7.5 fl. (7.2-11.1); RBC 3.72 mil/uL (4.20-5.00); RDW-CV 12.7 % (10.5-14.5); WBC 5.1 thou/uL (4.0-11.0)
[2020-04-07 04:45] LABS: HEMOGLOBIN 11.8 gm/dL (12.0-15.0)
[2020-04-07 04:54] LABS: CALCIUM 8.5 mg/dL (8.5-10.1); CREATININE 0.9 mg/dL (0.6-1.3); MAGNESIUM 2.3 mg/dL (1.8-2.4); POTASSIUM 3.9 mmol/L (3.5-5.1)
--- NOTE | 2020-04-07 05:42 | NUR ---
PT SLEPT MOST OF SHIFT. ASSESSMENT DOCUMENTED. MEDS GIVEN PER E-MAR. IV PATENT. NO REPORTS OF PAIN THIS SHIFT. PT STATES SHE WAS NOT ANXIOUS BUT NEEDED HER ANXIETY MEDICATIONS, SHE STATED THAT SHE NEEDS TO MAKE SURE SHE DOES NOT HAVE ANXIETY ANYMORE BEFORE SHE LEAVE. PT EDUCATED. PT WALKING SM[address] THIS SHIFT. WILL CONTINUE WITH PLAN OF CARE.
--- NOTE | 2020-04-07 14:41 | NUR ---
PT CAME OUT ASKING FOR MORPHINE FOR ABDOMINAL PAIN, STATES IT IS THE ONLY THING THAT HELPS. PAGED DR OJEDA
[2020-04-07 17:05] LABS: HEMATOCRIT 38.5 % (37.0-47.0); HEMOGLOBIN 13.5 gm/dL (12.0-15.0)
[2020-04-07 17:20] LABS: INR 1.1
[2020-04-08 04:00] VITALS: BP 121/77
[2020-04-08 06:12] LABS: CALCIUM 8.3 mg/dL (8.5-10.1); CREATININE 0.7 mg/dL (0.6-1.3); MAGNESIUM 2.3 mg/dL (1.8-2.4); POTASSIUM 4.4 mmol/L (3.5-5.1)
[2020-04-08 08:36] LABS: HEMATOCRIT 37.2 % (37.0-47.0); HEMOGLOBIN 13.3 gm/dL (12.0-15.0); MCH 32.1 pg (26.0-34.0); MCHC 35.9 g/dL (28.0-37.0); MCV 89.3 fL (80.0-100.0); MPV 7.9 fl. (7.2-11.1); RBC 4.16 mil/uL (4.20-5.00); RDW-CV 12.9 % (10.5-14.5); WBC 6.3 thou/uL (4.0-11.0)
[2020-04-08 17:35] VITALS: BP 139/77
--- NOTE | 2020-04-08 17:48 | NUR ---
PATINET RESTING IN BED. UP AD BRITTANEY IN ROOM AND HALLWAY. TWO DAY BOWEL PREP HAS BEGUN. HOURLKY ROUNDING COMPLETED FOR PATINET SAFETY. COLONOSCOPY TO BECOMPLETED TUESDAY 04/10.
[2020-04-08 20:10] VITALS: BP 127/69
[2020-04-09] VITALS: BP 108/45
[2020-04-09 04:43] LABS: ABSOLUTE EOSINOPHILS 0.1 thou/uL (0.0-0.7); ABSOLUTE LYMPHOCYTES 1.8 thou/uL (0.8-5.3); ABSOLUTE MONOCYTES 0.5 thou/uL (0.0-1.2); ABSOLUTE NEUTROPHILS 3.8 thou/uL (1.6-8.1); BASOPHILS 0.6 %; EOSINOPHILS 1.6 %; HEMATOCRIT 34.8 % (37.0-47.0); HEMOGLOBIN 12.2 gm/dL (12.0-15.0); LYMPHOCYTES 28.4 %; MCH 31.5 pg (26.0-34.0); MONOCYTES 8.5 %; MPV 7.5 fl. (7.2-11.1); NUCLEATED RBCS 0 /100WBC; PLATELET COUNT* 215 thou/uL (150-400); POLYS 60.9 %; RBC 3.86 mil/uL (4.20-5.00); WBC 6.3 thou/uL (4.0-11.0)
[2020-04-09 04:58] LABS: CALCIUM 8.5 mg/dL (8.5-10.1)
[2020-04-09 07:59] VITALS: BP 134/63
--- NOTE | 2020-04-09 16:18 | NUR ---
EPI RESTING IN BED. UP AD BRITTANEY IN ROOM AND UNDERGOING BOWEL PREP FOR COLONOSCOPY TOMORROW. VSS, AOX4, DENIES PAIN, TOLERATING PREP WELL. POTENTIAL DISCHARGE TO SELF CARE AT HOME POST COLONOSCOPY TOMORROW. HOURLY ROUNDING COMPLETD FOR PATIENT SAFETY
[2020-04-09 16:32] VITALS: BP 130/68
[2020-04-09 20:02] VITALS: BP 151/77
[2020-04-10 00:21] VITALS: BP 101/44
--- NOTE | 2020-04-10 06:01 | NUR ---
RECEIVED REPORT AND ASSUMED CARE OF PATIENT AT 1900. VSS. NO ACUTE CHANGES THROUGHOUT SHIFT. ALL ROUNDINGS COMPLETED, ALL NEEDS MET, FULL ASSESSMENT COMPLETED CHARTED. CALL LIGHT AND PERSONAL ITEMS IN REACH.
[2020-04-10 07:23] LABS: HEMATOCRIT 37.1 % (37.0-47.0); HEMOGLOBIN 12.7 gm/dL (12.0-15.0)
[2020-04-10 07:46] VITALS: BP 115/60
[2020-04-10] MEDS ORDERED: LEVSIN0.125 MG SUBLING (09:29)
[2020-04-10] MEDS ORDERED: LORAZEPAM 0.50.5 MG PO ×2 (09:30→09:31)
[2020-04-10] MEDS ORDERED: PROTONIX40 M1 PO (09:30)
[2020-04-10 12:02] VITALS: BP 115/60
--- NOTE | 2020-04-10 13:44 | NUR ---
ORDER RECEIVED TO DISCHARGE PATIENT HOME TO SELF CARE. COLONOSCOPY COMPLETED AND RECOMMENDATION GIVEN TO PATIENT. MED REC, MEDICATION EDUCATION, STROKE EDUCATION, AND NEED FOR FOLLOW UP WITH CARDIOLOGY, GI, AND PRIMARY COVERED AND STATED UNDERSTOOD BY PATIENT. IV REMOVED FROM RIGHT FOREARM. EPI EDUCATED IN THE NEED TO HAVE A FAMILY MEMBER WITH HER OVERNIGHT SHE WAS UNDER SEDATION FOR PROCEDURE. SHE AGGREED. HER SON ARRIVED AND TRANSPORTED HER VIA CAR TO HOME. HOURLY ROUNDING COMPLETED FOR EPI SAFETY. DISCHARGE TIME OF 13:30.
== END 2020-04-10 13:30 | disposition home or self-care (01) | DRG 377 ==
LOC: M.ERS 18:24 → M.TBA-ER 22:49 → M.2W 23:36 → M.TBA-ER 23:36 → M.2W 04-06 00:07
PROVIDERS: Anesthesiology; Emergency Medicine; Emergency Medicine Emergency Medical Services; Internal Medicine Gastroenterology; ADMIT Internal Medicine
PROC: 0DB68ZX Excision of Stomach, Via Natural or Artificial Opening Endoscopic, Diagnostic (ICD-10-PCS; principal; 2020-04-07)
PROC: 0DJD8ZZ Inspection of Lower Intestinal Tract, Via Natural or Artificial Opening Endoscopic (ICD-10-PCS; 2020-04-10)
DX: K57.31 Diverticulosis of large intestine without perforation or abscess with bleeding (principal); J96.01 Acute respiratory failure with hypoxia; D62 Acute posthemorrhagic anemia; I50.32 Chronic diastolic (congestive) heart failure; J44.9 Chronic obstructive pulmonary disease, unspecified; K21.9 Gastro-esophageal reflux disease without esophagitis; I11.0 Hypertensive heart disease with heart failure; E11.9 Type 2 diabetes mellitus without complications; M79.7 Fibromyalgia; F41.1 Generalized anxiety disorder; E66.01 Morbid (severe) obesity due to excess calories; I48.0 Paroxysmal atrial fibrillation; I25.119 Atherosclerotic heart disease of native coronary artery with unspecified angina pectoris; K44.9 Diaphragmatic hernia without obstruction or gangrene; K29.61 Other gastritis with bleeding; K64.4 Residual hemorrhoidal skin tags; K63.5 Polyp of colon; K29.71 Gastritis, unspecified, with bleeding; Z79.01 Long term (current) use of anticoagulants; I25.2 Old myocardial infarction; Z95.5 Presence of coronary angioplasty implant and graft; Z90.49 Acquired absence of other specified parts of digestive tract; Z87.01 Personal history of pneumonia (recurrent); Z86.718 Personal history of other venous thrombosis and embolism; Z68.39 Body mass index [BMI] 39.0-39.9, adult; Z79.891 Long term (current) use of opiate analgesic; Z88.1 Allergy status to other antibiotic agents; Z88.5 Allergy status to narcotic agent; Z88.8 Allergy status to other drugs, medicaments and biological substances; Z79.82 Long term (current) use of aspirin; Z79.899 Other long term (current) drug therapy; Z77.22 Contact with and (suspected) exposure to environmental tobacco smoke (acute) (chronic); R13.10 Dysphagia, unspecified

== ENCOUNTER 2020-04-20 14:11 | Observation (INO) | payer OTHER ==
[~2020-04-20] VITALS: Ht 167.6 cm; Wt 106.8 kg
[~2020-04-20 14:11] MED LIST changes: +ALOE VERA25 MG PO; +B12 ACTIVE1000 MCG INJECTION; +LEVSIN0.125 MG SUBLING; +LORAZEPAM 0.50.5 MG PO; +MAGNESIUM250 M1 PO; +MELATONIN1 MG PO; +MIRALAX119 GM PO; +VITAMIN C250 M1 PO
[2020-04-20 14:41] VITALS: BP 122/74
--- NOTE | 2020-04-20 15:00 | EKG ---
[place] [address] ELECTROCARDIOGRAM REPORT Name: FAUSTINO JACKSON Room: [facility]#: [id number] Admission: 04/20/20 Attend Phys: Discharge: Date of : 53 Date of Service: 04/20/20 1426 Report #: [id number] THIS REPORT FOR: //name// [facility] ED Test Date: 2020-04-20 Test Time: 14:26:28 Pat Name: FAUSTINO JACKSON Department: Room: Gender: Machine Compositor: MS : 1955 Requested By: Marietta Brenner Order Number: [id number] MD: Dejon Buck Measurements Intervals [place] Rate: 87 P: 50 [place]: 155 QRS: 12 QRSD: 83 T: 53 QT: 377 QTc: 454 Interpretive Statements Sinus rhythm Multiple ventricular premature complexes Compared to ECG 04/05/2020 18:29:27 Ventricular premature complex(es) now present Electronically Signed On 04-20-2020 14:58:42 CDT by Dejon Buck [email or web address] <ELECTRONICALLY SIGNED> By: Dejon Buck MD, [facility] 04/20/20 1458 1426 1426 Dejon Buck MD, [facility] /EPI
[2020-04-20 15:09] LABS: ABSOLUTE LYMPHOCYTES 1.6 thou/uL (0.8-5.3); ABSOLUTE MONOCYTES 0.4 thou/uL (0.0-1.2); ABSOLUTE NEUTROPHILS 3.9 thou/uL (1.6-8.1); BASOPHILS 0.8 %; EOSINOPHILS 0.8 %; HEMATOCRIT 39.1 % (37.0-47.0); HEMOGLOBIN 13.5 gm/dL (12.0-15.0); LYMPHOCYTES 26.8 %; MCH 31.2 pg (26.0-34.0); MCHC 34.4 g/dL (28.0-37.0); MCV 90.7 fL (80.0-100.0); MONOCYTES 6.1 %; MPV 7.7 fl. (7.2-11.1); NUCLEATED RBCS 0 /100WBC; PLATELET COUNT* 242 thou/uL (150-400); POLYS 65.5 %; RBC 4.32 mil/uL (4.20-5.00); RDW-CV 13.2 % (10.5-14.5); WBC 5.9 thou/uL (4.0-11.0)
[2020-04-20 15:14] LABS: URINE BILIRUBIN NEGATIVE (Negative); URINE BLOOD NEGATIVE (Negative); URINE CLARITY CLEAR; URINE COLOR YELLOW; URINE GLUCOSE-RANDOM NEGATIVE (Negative); URINE KETONES NEGATIVE (Negative); URINE NITRITE-REFLEX NEGATIVE (Negative); URINE PROTEIN NEGATIVE (Negative); URINE SPECIFIC GRAVITY 1.015 (1.005-1.030); URINE UROBILINOGEN 0.2 E.U./dl (0.2-1.0)
[2020-04-20 15:20] LABS: CALCIUM 8.8 mg/dL (8.5-10.1); CREATININE 1.1 mg/dL (0.6-1.3); POTASSIUM 3.4 mmol/L (3.5-5.1)
[2020-04-20 15:21] LABS: AMP/METHAMP Negative (Negative); BARBITURATES Negative (Negative); BENZODIAZEPINES Negative (Negative); COCAINE Negative (Negative); METHADONE Negative (Negative); OPIATES Negative (Negative); PCP Negative (Negative); THC Negative (Negative)
[2020-04-20 15:24] LABS: URINE LEUKOCYTES-REFLEX 3+ (Negative)
[2020-04-20 15:32] LABS: ALBUMIN 3.3 g/dL (3.4-5.0); MAGNESIUM 1.9 mg/dL (1.8-2.4); TOTAL BILIRUBIN 0.5 mg/dL (<0.1-1.0); TOTAL PROTEIN 6.9 g/dL (6.4-8.2)
[2020-04-20 15:57] LABS: BACTERIA-REFLEX 1-9 Few /HPF (None Seen); CASTS None Seen /LPF (None Seen); CRYSTALS None Seen /LPF (None Seen); SQUAMOUS 0-3 Few /LPF (0-3); URINE RBC 0-2 Rare /HPF (0-2); URINE WBC-REFLEX 0-5 Rare /HPF (0-5)
[2020-04-20 20:16] VITALS: BP 135/72
[2020-04-20 20:30] VITALS: BP 119/57
[2020-04-20] MEDS ORDERED: LORAZEPAM 0.50.5 MG PO (21:20)
[2020-04-21 00:29] VITALS: BP 101/54
[2020-04-21 04:30] VITALS: BP 91/57
[2020-04-21 08:00] VITALS: BP 123/71
--- NOTE | 2020-04-21 10:36 | EKG ---
[place] [address] ELECTROCARDIOGRAM REPORT Name: FAUSTINO JACKSON Room: [address] M.R.#: [id number] Admission: 04/20/20 Attend Phys: David Patel Discharge: Date of : 53 Date of Service: 04/21/20905 Report #: [id number] THIS REPORT FOR: //name// [facility] Test Date: 2020-04-21 Test Time: 09:06:47 Pat Name: FAUSTINO JACKSON Department: Room: [address] Gender: F Wind Power Project Manager: : 1955 Requested By: Maya Tovar Order Number: [id number] MD: Dejon Buck Measurements Intervals [place] Rate: 66 P: 52 PA: 161 QRS: 19 QRSD: 85 T: 48 QT: 410 QTc: 430 Interpretive Statements Sinus rhythm Baseline wander in lead(s) V4 Compared to ECG 04/20/2020 14:26:28 Ventricular premature complex(es) no longer present Electronically Signed On 04-21-2020 10:34:18 CDT by Dejon Buck [email or web address] <ELECTRONICALLY SIGNED> By: Dejon Buck MD, [facility] 04/21/20 1034 5 5 Dejon Buck MD, [facility] /EPI
[2020-04-21 12:49] VITALS: BP 103/59
[2020-04-21 13:26] LABS: ABSOLUTE EOSINOPHILS 0.1 thou/uL (0.0-0.7); ABSOLUTE LYMPHOCYTES 1.2 thou/uL (0.8-5.3); ABSOLUTE MONOCYTES 0.3 thou/uL (0.0-1.2); ABSOLUTE NEUTROPHILS 2.7 thou/uL (1.6-8.1); BASOPHILS 0.7 %; EOSINOPHILS 1.6 %; HEMATOCRIT 40.5 % (37.0-47.0); HEMOGLOBIN 13.8 gm/dL (12.0-15.0); LYMPHOCYTES 28.3 %; MCH 31.5 pg (26.0-34.0); MCV 92.7 fL (80.0-100.0); MONOCYTES 6.7 %; MPV 7.9 fl. (7.2-11.1); NUCLEATED RBCS 0 /100WBC; PLATELET COUNT* 228 thou/uL (150-400); POLYS 62.7 %; RBC 4.37 mil/uL (4.20-5.00); RDW-CV 13.6 % (10.5-14.5); WBC 4.3 thou/uL (4.0-11.0)
[2020-04-21 13:42] LABS: ALBUMIN 3.3 g/dL (3.4-5.0); ALKALINE PHOSPHATASE 64 U/L (46-116); ANION GAP 6 mmol/L (7-16); BUN 11 mg/dL (7-18); CALCIUM 8.9 mg/dL (8.5-10.1); CHLORIDE 106 mmol/L (98-107); CO2 29 mmol/L (21-32); CREATININE 0.8 mg/dL (0.6-1.3); GLUCOSE 177 mg/dL (70-99); SGOT 25 U/L (15-37); SGPT 23 U/L (30-65); SODIUM 141 mmol/L (136-145); TOTAL BILIRUBIN 0.5 mg/dL (<0.1-1.0); TROPONIN-I LEVEL <0.06 ng/mL (<0.06)
--- NOTE | 2020-04-21 15:34 | CON ---
[address] [address] CONSULTATION Name: FAUSTINO JACKSON Room: [address] Christopher Martinez#: [id number] Admission: 04/20/20 Attend Phys: Sharlene Solares Discharge: Date of : 53 Report #: [id number] THIS REPORT FOR: //name// cc: Pebbles Beltran Maggie M. DO ~ THIS REPORT FOR: //name// CC: Pebbles Ribeiro DATE OF SERVICE: 04/21/2020 CARDIOLOGY CONSULTATION HISTORY OF PRESENT ILLNESS: The patient is a 65-year-old single white female who I was asked to see in the hospital after she complained of chest pain. The patient has an extensive and complicated past medical history. She has apparently had a total of 9 coronary stents placed in the past. She apparently just had a cardiac catheterization in December this year by Dr. Ben Pack here at [place]. The patient had been having chest pain. The procedure was performed from the right femoral artery. Results showed a 75% stenosis of the distal left main artery, 75% stenosis of the ostial LAD. 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 Ventriculogram was not performed. She was given Angiomax and Dr. Pack then placed a drug-eluting stent in the distal left main artery into the proximal LAD. He then placed a stent in the proximal circumflex artery. He also placed a stent in the proximal right coronary artery. She was placed on Effient and discharged. She had an echocardiogram performed in November of this year that showed an ejection fraction of 60% with aortic sclerosis. The patient is not very active at this time because of her large size. She uses a walker. She was doing well until yesterday morning. She complained of pain in her upper back, went in her chest and in her throat. She felt somewhat short of breath and lightheaded. She came to the Emergency Room yesterday and was admitted. Cardiology consultation was requested. PAST MEDICAL HISTORY: Otherwise significant for radiofrequency ablation at [facility] for SVT years ago. She has had cholecystectomy. She apparently was admitted with a GI bleed in March and underwent a colonoscopy and was found to have a polyp. Upper GI showed a hiatal hernia. She has a history of hypertension, hyperlipidemia and diabetes. MEDICATIONS: On admission include Effient, Protonix, Ativan, aspirin, Lasix, potassium, metformin, insulin. ALLERGIES: SHE HAS AN ALLERGY TO KEFLEX, CODEINE, PENICILLIN, [place] [address] CONSULTATION Name: MANUELFAUSTINO Room: [address] Christopher Martinez#: [id number] Admission: 04/20/20 Attend Phys: Sharlene Solares Discharge: Date of : 53 Report #: [id number] FAMILY HISTORY: Positive for heart disease. SOCIAL HISTORY: She is , lives in [place], [place] by herself. No smoking or alcohol abuse. REVIEW OF SYSTEMS: No history of stroke. She does have a history of asthma. No history of liver disease. She has chronic kidney disease. No cancer. No psychiatric illness. No chronic skin condition. PHYSICAL EXAMINATION: GENERAL: Revealed an elderly female. She was 5 feet 6, 240 pounds. VITAL SIGNS: She had a blood pressure of 120/70, pulse 70. She is afebrile. HEENT: She was anicteric. Conjunctivae pink. Mucous membranes moist. NECK: Veins nondistended. No carotid bruits. CHEST: Clear to auscultation. CARDIOVASCULAR: Regular rate and rhythm. ABDOMEN: Obese. EXTREMITIES: Had no edema. Dorsalis pedis pulse cannot be palpated. SKIN: Cool and dry. RADIOLOGICAL DATA: ECG shows a sinus rhythm with no ST or T-wave change. Her chest x-ray in the Emergency Room yesterday normal heart size and clear lung redman. She actually had a CT scan of the chest that showed the following findings. There is no evidence of aortic dissection. Coronary calcification. LABORATORY WORK: Sodium 141, potassium 3.4, BUN 13, creatinine 1.1. Liver function studies were normal. Troponin 0.06. In December, her cholesterol was 182, triglyceride 229, HDL 32, LDL 115. TSH 0.47. Hemoglobin 13.5. IMPRESSION AND RECOMMENDATIONS: 1. Back pain. Suspect noncardiac. Recommend no further cardiac evaluation. 2. Previous coronary stents. I will continue aspirin and Effient. 3. Diabetes. 4. Hyperlipidemia. The patient could not tolerate statin drugs. 5. History of ablation for supraventricular tachycardia. 6. Colon polyps. 7. Hiatal hernia. 8. Morbid obesity. 9. History of asthma. <ELECTRONICALLY SIGNED> By: Dejon Buck MD, [facility] 04/21/20 1534 0917 [id number] Buck MD, FAC /nt
[2020-04-21 17:22] VITALS: BP 125/65
[2020-04-21 20:10] VITALS: BP 148/52
[2020-04-22 00:24] VITALS: BP 93/48
[2020-04-22 04:45] VITALS: BP 120/58
[2020-04-22 08:00] VITALS: BP 131/75
[2020-04-22] MEDS ORDERED: CALCIUM CARBON200 M1 PO (10:49)
[2020-04-22] MEDS ORDERED: MACROBID 100 M100 M1 PO (10:49)
[2020-04-22 11:36] VITALS: BP 120/58
== END 2020-04-22 14:30 | disposition home or self-care (01) ==
LOC: M.ERS 14:11 → M.2W 18:15 → M.TBA-ER 18:15 → M.2W 20:21
PROVIDERS: Nurse Practitioner; Nurse Practitioner Family; ADMIT Internal Medicine
DX: K21.9 Gastro-esophageal reflux disease without esophagitis (principal); R07.89 Other chest pain; E11.65 Type 2 diabetes mellitus with hyperglycemia; I25.10 Atherosclerotic heart disease of native coronary artery without angina pectoris; K29.70 Gastritis, unspecified, without bleeding; K59.00 Constipation, unspecified; I11.0 Hypertensive heart disease with heart failure; I50.32 Chronic diastolic (congestive) heart failure; E78.2 Mixed hyperlipidemia; E66.9 Obesity, unspecified; F41.9 Anxiety disorder, unspecified; Z90.49 Acquired absence of other specified parts of digestive tract

== ENCOUNTER 2020-04-28 03:04 | Emergency (ER) | payer OTHER ==
[~2020-04-28] VITALS: Ht 167.6 cm; Wt 102.5 kg
[~2020-04-28 03:04] MED LIST changes: +CALCIUM CARBON200 M1 PO
[2020-04-28 03:23] LABS: ABSOLUTE BASOPHILS 0.1 thou/uL (0.0-0.2); ABSOLUTE EOSINOPHILS 0.1 thou/uL (0.0-0.7); ABSOLUTE LYMPHOCYTES 1.9 thou/uL (0.8-5.3); ABSOLUTE MONOCYTES 0.6 thou/uL (0.0-1.2); ABSOLUTE NEUTROPHILS 4.2 thou/uL (1.6-8.1); BASOPHILS 1.2 %; EOSINOPHILS 1.6 %; HEMATOCRIT 38.3 % (37.0-47.0); HEMOGLOBIN 13.3 gm/dL (12.0-15.0); LYMPHOCYTES 27.1 %; MCH 31.6 pg (26.0-34.0); MCHC 34.8 g/dL (28.0-37.0); MONOCYTES 8.9 %; NUCLEATED RBCS 0 /100WBC; PLATELET COUNT* 249 thou/uL (150-400); POLYS 61.2 %; RBC 4.21 mil/uL (4.20-5.00); RDW-CV 13.1 % (10.5-14.5); WBC 6.9 thou/uL (4.0-11.0)
[2020-04-28 03:33] LABS: APTT 21.2 Seconds (25.0-31.3); INR 1.1; PROTIME 10.8 Seconds (9.20-11.50)
[2020-04-28 04:02] LABS: CALCIUM 8.9 mg/dL (8.5-10.1); POTASSIUM 3.9 mmol/L (3.5-5.1)
[2020-04-28 04:13] LABS: ALBUMIN 3.3 g/dL (3.4-5.0); TOTAL BILIRUBIN 0.4 mg/dL (<0.1-1.0); TOTAL PROTEIN 6.7 g/dL (6.4-8.2)
[2020-04-28 05:30] LABS: URINE BILIRUBIN NEGATIVE (Negative); URINE BLOOD NEGATIVE (Negative); URINE CLARITY CLEAR; URINE COLOR STRAW; URINE GLUCOSE-RANDOM NEGATIVE (Negative); URINE KETONES NEGATIVE (Negative); URINE LEUKOCYTES-REFLEX TRACE (Negative); URINE NITRITE-REFLEX NEGATIVE (Negative); URINE PROTEIN NEGATIVE (Negative); URINE UROBILINOGEN 0.2 E.U./dl (0.2-1.0)
[2020-04-28 05:53] LABS: CASTS None Seen /LPF (None Seen); MUCUS 0-3 Light strn/LPF (None Seen); SQUAMOUS 0-3 Few /LPF (0-3); URINE RBC 3-10 Few /HPF (0-2); URINE WBC-REFLEX 0-5 Rare /HPF (0-5)
[2020-04-28 05:54] LABS: CRYSTALS None Seen /LPF (None Seen)
[2020-04-28] MEDS ORDERED: MACROBID 100 M100 M1 PO (05:57)
[2020-04-28 06:34] VITALS: BP 118/61
--- NOTE | 2020-04-29 09:38 | EKG ---
[place] [address] ELECTROCARDIOGRAM REPORT Name: FAUSTINO JACKSON Room: [facility]#: [id number] Admission: 04/28/20 Attend Phys: Discharge: 04/28/20 Date of : 53 Date of Service: 04/28/20 0307 Report #: [id number] THIS REPORT FOR: //name// [facility] ED Test Date: 2020-04-28 Test Time: 03:07:48 Pat Name: URMILAChristopher GYPSYWILNER Department: Room: Gender: Raymond Mill Operator: : 1955 Requested By: Maya Tovar Order Number: [id number] MD: Broide Wallace Measurements Intervals [place] Rate: 87 P: 51 [place]: 127 QRS: 30 QRSD: 84 T: 61 QT: 353 QTc: 425 Interpretive Statements Sinus rhythm Compared to ECG 04/21/2020 09:06:47 No significant changes Electronically Signed On 04-29-2020 9:37:13 CDT by Brodie Wallace [email or web address] <ELECTRONICALLY SIGNED> By: Everett Wallace MD, [facility] 04/29/20 0937 6 6 Everett Wallace MD, [facility] /EPI
== END 2020-04-28 06:36 | disposition home or self-care (01) ==
LOC: M.ERS 03:04
PROVIDERS: Personal Emergency Response Attendant
DX: I25.10 Atherosclerotic heart disease of native coronary artery without angina pectoris (principal); N39.0 Urinary tract infection, site not specified; I11.0 Hypertensive heart disease with heart failure; I50.9 Heart failure, unspecified; E11.9 Type 2 diabetes mellitus without complications; E66.01 Morbid (severe) obesity due to excess calories; J44.9 Chronic obstructive pulmonary disease, unspecified; K21.9 Gastro-esophageal reflux disease without esophagitis; M79.7 Fibromyalgia; Z68.36 Body mass index [BMI] 36.0-36.9, adult; Z95.5 Presence of coronary angioplasty implant and graft; Z90.49 Acquired absence of other specified parts of digestive tract; Z88.0 Allergy status to penicillin; Z88.1 Allergy status to other antibiotic agents; Z88.6 Allergy status to analgesic agent; Z88.8 Allergy status to other drugs, medicaments and biological substances

== ENCOUNTER → 2020-05-04 | Outpatient (CLI) | payer OTHER ==
[~2020-05-04] MED LIST changes: +WELLBUTRIN 75 M75 M1 PO
== END ==
LOC: M.ULTRA 15:08
PROVIDERS: ATTEND Family Medicine
DX: R22.2 Localized swelling, mass and lump, trunk (principal); M25.511 Pain in right shoulder; R10.9 Unspecified abdominal pain

== ENCOUNTER 2020-05-17 11:33 | Observation (INO) | payer OTHER ==
[~2020-05-17] VITALS: Ht 167.6 cm; Wt 104.3 kg
--- NOTE | ~2020-05-17 | CON ---
[address] [address] CONSULTATION Name: FAUSTINO JACKSON Room: [address] Christopher Martinez#: [id number] Admission: 05/17/20 Attend Phys: Sharlene Solares Discharge: Date of : 53 Report #: [id number] THIS REPORT FOR: //name// cc: Pebbles Beltran Maggie M. DO ~ THIS REPORT FOR: //name// CC: Pebbles Patel DATE OF SERVICE: 05/18/2020 HISTORY OF PRESENT ILLNESS: This is a 65-year-old female patient who was evaluated by me for any neurological etiology for the patient's dizziness. The patient was seen yesterday as well as today. She said that she had dizziness for a long time. She was diagnosed with Meniere's disease, but then looks like she became better and did not have any episodes for a long time. Records indicate that she had dizziness during multiple hospitalizations here. In fact, she was seen by me in 2019 for dizziness. We did an MRI of the brain and MRA of the head and neck during that time that did not show any etiology, which can explain the patient's dizziness. Dizziness is severe when she moves her head, but it has much improved since yesterday. It was associated with nausea and vomiting, but is doing better now. She has not seen an ENT physician recently. REVIEW OF SYSTEMS: A 14-point review of systems was carried out and was mostly unremarkable. She indicated that she is healthy. She denies any stress or anxiety. She does not have any eye, cardiac, respiratory, GI, , musculoskeletal, constitutional, dermatological, hematological, psychiatric, throat, or allergic symptoms associated with present symptomatology. PAST MEDICAL HISTORY: Positive for similar dizziness and further history is unclear on that. FAMILY HISTORY: Unremarkable. SOCIAL HISTORY: She says she does not smoke or drink any alcohol. PHYSICAL EXAMINATION: Indicate she is alert, responsive, able to follow simple and complex command. Cranial nerve examination appears unremarkable. Her speech looks intact. Memory and fund of knowledge is at her baseline. Cranial nerve examination 2-12 was mostly unremarkable. No nystagmus was present. Neuromuscular examination was also noncontributory. She has a good position sense. Her pulses are palpable. She has no edema, cyanosis or jaundice. Cardiac and respiratory examinations appear unremarkable. She has no thyroid mass. She is a well-built individual, no respiratory difficulty. Blood pressure is 120/57, respirations 18, pulse is 72, and temperature [place] [address] CONSULTATION Name: FAUSTINO JACKSON Room: [address] Christopher MJohnRJohn#: [id number] Admission: 05/17/20 Attend Phys: Sharlene Solares Discharge: Date of : 53 Report #: [id number] LABORATORY DATA: Indicated white count of 5.6. Her GFR is 63. IMPRESSION AND PLAN: This patient most likely has dizziness, which is ENT in etiology. She had a workup not too long ago. I will just repeat the MRI to make sure there is no etiology there. If that is negative, the next step should be that she should see an ENT physician. If no ENT physician comes here, so they can see her as an outpatient. If they think the etiology is from ENT pathology, then they can continue to treat that. If not, then she can make a followup appointment with us as an outpatient. Thank you very much for this referral. By: 1211 1229Johnathon Silva MD /nt
[~2020-05-17 11:33] MED LIST changes: -WELLBUTRIN 75 M75 M1 PO
[2020-05-17 11:48] VITALS: BP 150/71
[2020-05-17 12:27] LABS: ABSOLUTE EOSINOPHILS 0.1 thou/uL (0.0-0.7); ABSOLUTE LYMPHOCYTES 1.3 thou/uL (0.8-5.3); ABSOLUTE MONOCYTES 0.3 thou/uL (0.0-1.2); ABSOLUTE NEUTROPHILS 3.9 thou/uL (1.6-8.1); BASOPHILS 0.8 %; EOSINOPHILS 1.2 %; HEMATOCRIT 40.7 % (37.0-47.0); LYMPHOCYTES 23.3 %; MCHC 34.4 g/dL (28.0-37.0); MCV 90.1 fL (80.0-100.0); MONOCYTES 5.4 %; MPV 7.4 fl. (7.2-11.1); NUCLEATED RBCS 0 /100WBC; PLATELET COUNT* 259 thou/uL (150-400); POLYS 69.3 %; RBC 4.52 mil/uL (4.20-5.00); RDW-CV 13.3 % (10.5-14.5); WBC 5.6 thou/uL (4.0-11.0)
[2020-05-17 12:36] LABS: CALCIUM 9.1 mg/dL (8.5-10.1); CREATININE 0.8 mg/dL (0.6-1.3); POTASSIUM 3.7 mmol/L (3.5-5.1)
[2020-05-17 12:41] LABS: ALBUMIN 3.5 g/dL (3.4-5.0); TOTAL BILIRUBIN 0.4 mg/dL (<0.1-1.0); TOTAL PROTEIN 7.1 g/dL (6.4-8.2)
[2020-05-17 13:28] LABS: URINE BILIRUBIN NEGATIVE (Negative); URINE BLOOD NEGATIVE (Negative); URINE CLARITY CLEAR; URINE COLOR YELLOW; URINE GLUCOSE-RANDOM NEGATIVE (Negative); URINE KETONES NEGATIVE (Negative); URINE LEUKOCYTES-REFLEX TRACE (Negative); URINE NITRITE-REFLEX NEGATIVE (Negative); URINE PROTEIN NEGATIVE (Negative); URINE UROBILINOGEN 0.2 E.U./dl (0.2-1.0)
[2020-05-17 13:35] LABS: BACTERIA-REFLEX None Seen /HPF (None Seen); CASTS None Seen /LPF (None Seen); CRYSTALS None Seen /LPF (None Seen); MUCUS None Seen strn/LPF (None Seen); SQUAMOUS 4-10 Moderate /LPF (0-3); TRANSITIONAL EPITHEL CELL 0-3 Few /LPF (None Seen); URINE RBC 0-2 Rare /HPF (0-2); URINE WBC-REFLEX 0-5 Rare /HPF (0-5)
--- NOTE | 2020-05-17 13:44 | EKG ---
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
[2020-05-17 17:54] VITALS: BP 126/57
[2020-05-17 18:15] VITALS: BP 120/60
[2020-05-17 19:50] VITALS: BP 98/50
[2020-05-17 21:02] LABS: CALCIUM 8.7 mg/dL (8.5-10.1); CREATININE 0.9 mg/dL (0.6-1.3); POTASSIUM 3.8 mmol/L (3.5-5.1)
[2020-05-18] VITALS: BP 103/47
[2020-05-18 04:00] VITALS: BP 108/61
--- NOTE | 2020-05-18 05:21 | NUR ---
PATIENT PROGRESSING TOWARDS GOALS: DIZZNESS IMPROVED WITH MEDICATION PER MAR AND SLOW MOVEMENTS. HEADACHE RELIEVED WITH DARK/QUIET ENVIRONMENT AND MEDICATION. NOTED TO BE SLEEPING WELL THIS SHIFT. CALL LIGHT WITHIN REACH
[2020-05-18 08:30] VITALS: BP 120/57
[2020-05-18 11:30] VITALS: BP 122/51; BP 135/66; BP 151/79
--- NOTE | 2020-05-18 17:29 | NUR ---
SW met with pt to complete initial assessment. Pt lives at home alone. Pt has RW, Cane, CPAP. Pt interested at at al if needed. Pt preference for [facility] and at al, fax H&P, face sheet, and orders/med list to fax [phone].
[2020-05-18 20:00] VITALS: BP 113/49
[2020-05-18 23:54] VITALS: BP 107/51
[2020-05-19 05:00] VITALS: BP 144/69
--- NOTE | 2020-05-19 05:22 | NUR ---
ASSUMED CARE OF PT 0230.
[2020-05-19 07:51] VITALS: BP 126/56
[2020-05-19] MEDS ORDERED: WELLBUTRIN 75 M75 M1 PO (09:56)
[2020-05-19] MEDS ORDERED: LORAZEPAM 0.50.5 MG PO (09:56)
[2020-05-19 10:19] VITALS: BP 126/56
--- NOTE | 2020-05-19 12:05 | CON ---
[address] [address] CONSULTATION Name: FAUSTINO JACKSON Room: [address] Christopher Martinez#: [id number] Admission: 05/17/20 Attend Phys: Sharlene Solares Discharge: Date of : 53 Report #: [id number] THIS REPORT FOR: //name// cc: Pebbles Beltran Maggie M. DO ~ THIS REPORT FOR: //name// CC: Pebbles Ribeiro DATE OF SERVICE: 05/18/2020 CARDIOLOGY CONSULTATION INDICATION: Dizziness and syncope. HISTORY OF PRESENT ILLNESS: The patient is a very pleasant 65-year-old white female who is well known to our service. 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 She has normal left ventricular systolic function. She is not having chest pain at this time. The patient fell on Friday while visiting her son. She apparently stepped out of a trailer and while walking on flat ground fell. She does not recall the mechanism. There was no prodrome. The patient injured her right hand and right foot in the fall. The patient reports returning home. She felt quite nauseous on Friday without vomiting. That night, she took medication in an effort to sleep. She had no success and remained awake throughout the night. Somewhere on the course, she started to feel profoundly dizzy. The patient was able to drive herself to the Emergency Room. Apparently after arrival to the Emergency Room, she became even more dizzy and had significant shaking of her lower extremities while trying to stand. The patient states that since admission to the hospital, her dizziness has somewhat improved. There was no lateralizing symptoms. She also noted during this time of having blurry vision and black floaters in her visual redman. On arrival to the Emergency Room, she was mildly hypertensive with a normal pulse. PAST MEDICAL HISTORY: 1. Coronary artery disease. 2. Hypertension. 3. Type 2 diabetes mellitus. 4. COPD. 5[place] [address] CONSULTATION Name: FAUSTINO JACKSON Room: [address] Michelle#: [id number] Admission: 05/17/20 Attend Phys: Sharlene Solares Discharge: Date of : 53 Report #: [id number] 6. Ablation for cardiac dysrhythmia. 7. Diastolic heart failure. 8. GERD. 9. TMJ. 10. Fibromyalgia. 11. Vertigo many years ago. 12. Remote history of atrial fibrillation. 13. DVT. 14. Generalized anxiety disorder. 15. Plantar fasciitis. 16. Anxiety. HOME MEDICATIONS: Effient 10 mg daily, Protonix 40 mg b.i.d., calcium carbonate p.r.n., Nitrostat p.r.n. ALLERGIES: KEFLEX, CIPROFLOXACIN, CODEINE, ZETIA, PENICILLIN, PROMETHAZINE, ATORVASTATIN, METOPROLOL, COMPAZINE, AND DILTIAZEM. SOCIAL HISTORY: The patient is a nonsmoker. She does not drink alcohol. FAMILY HISTORY: Noncontributory. REVIEW OF SYSTEMS: A 14-point review of systems as per HPI, otherwise unremarkable. PHYSICAL EXAMINATION: VITAL SIGNS: Stable. Blood pressure 122/51, pulse 76 and regular. GENERAL: This is a pleasant lady in no distress. Mood and affect appropriate. HEENT: Head is normocephalic, atraumatic. Extraocular muscles intact. Mucous membranes are moist. NECK: Shows no jugular venous distention. There are no carotid bruits. CHEST: Reveals clear lung redman without wheezes or rales. CARDIOVASCULAR: Reveals a regular rhythm with a 2/6 systolic murmur heard left and right of sternum without a gallop. ABDOMEN: Reveals normal bowel sounds. The abdomen is soft, nontender. EXTREMITIES: Show some bruising in the right hand and right toes, otherwise unremarkable. SKIN: Warm and dry. No edema. IMPRESSION AND RECOMMENDATIONS: 1. Coronary artery disease, presently stable. She is having no symptoms to suggest angina or acute coronary syndrome. 2. Dizziness. Etiology is not clear. She does not appear to have symptoms of vertigo or orthostasis. Hemodynamically, the patient appears stable. There does not appear to be any dysrhythmia. 3. Hypertension. Blood pressure [place] [address] CONSULTATION Name: FAUSTINO JACKSON [address]#: [id number] Admission: 05/17/20 Attend Phys: David F. Sudholt, D Discharge: Date of : 53 Report #: [id number] 4. Hyperlipidemia. The patient is intolerant to statin agents. 5. History of ablation, remotely for SVT, more possibly atrial fibrillation without recurrence. 6. History of chronic obstructive pulmonary disease/asthma. appears stable. From a cardiac standpoint, the patient appears stable. I do not see any cardiac cause for her dizziness. We will follow as needed. <ELECTRONICALLY SIGNED> By: Jamarcus Ly MD, FACC 05/19/20 1205 1326 [id number] Ly MD, FACC /nt
== END 2020-05-19 12:10 | disposition home or self-care (01) ==
LOC: M.ERS 11:33 → M.TBA-ER 14:43 → M.2W 14:43
PROVIDERS: Physician Assistant; ADMIT Internal Medicine; ATTEND Internal Medicine
DX: R42 Dizziness and giddiness (principal); I11.0 Hypertensive heart disease with heart failure; I50.9 Heart failure, unspecified; E11.9 Type 2 diabetes mellitus without complications; J44.9 Chronic obstructive pulmonary disease, unspecified; K21.9 Gastro-esophageal reflux disease without esophagitis; F41.8 Other specified anxiety disorders; I25.10 Atherosclerotic heart disease of native coronary artery without angina pectoris; I25.2 Old myocardial infarction; E66.01 Morbid (severe) obesity due to excess calories

== ENCOUNTER 2020-05-28 16:52 | Emergency (ER) | payer OTHER ==
[~2020-05-28] VITALS: Ht 167.6 cm; Wt 102.1 kg
[~2020-05-28 16:52] MED LIST changes: +WELLBUTRIN 75 M75 M1 PO
[2020-05-28 17:18] LABS: URINE BILIRUBIN NEGATIVE (Negative); URINE BLOOD NEGATIVE (Negative); URINE CLARITY CLEAR; URINE COLOR YELLOW; URINE GLUCOSE-RANDOM NEGATIVE (Negative); URINE KETONES NEGATIVE (Negative); URINE LEUKOCYTES-REFLEX NEGATIVE (Negative); URINE NITRITE-REFLEX NEGATIVE (Negative); URINE PROTEIN NEGATIVE (Negative); URINE SPECIFIC GRAVITY <= 1.005 (1.005-1.030); URINE UROBILINOGEN 0.2 E.U./dl (0.2-1.0)
[2020-05-28] MEDS ORDERED: NYSTATIN 100,0015 G1 TOP (18:10)
[2020-05-28] MEDS ORDERED: DIFLUCAN150 MG PO (18:10)
[2020-05-28 18:33] VITALS: BP 165/77
== END 2020-05-28 18:37 | disposition home or self-care (01) ==
LOC: M.ERS 16:52
PROVIDERS: Family Medicine
DX: B37.2 Candidiasis of skin and nail (principal); I25.10 Atherosclerotic heart disease of native coronary artery without angina pectoris; J44.9 Chronic obstructive pulmonary disease, unspecified; K21.9 Gastro-esophageal reflux disease without esophagitis; M79.7 Fibromyalgia; I11.0 Hypertensive heart disease with heart failure; I50.30 Unspecified diastolic (congestive) heart failure; E11.9 Type 2 diabetes mellitus without complications; E66.01 Morbid (severe) obesity due to excess calories; Z68.36 Body mass index [BMI] 36.0-36.9, adult; Z88.1 Allergy status to other antibiotic agents; Z88.0 Allergy status to penicillin; Z88.8 Allergy status to other drugs, medicaments and biological substances; Z95.5 Presence of coronary angioplasty implant and graft; Z87.01 Personal history of pneumonia (recurrent); Z90.49 Acquired absence of other specified parts of digestive tract

== ENCOUNTER → 2020-05-29 | Outpatient (CLI) | payer OTHER ==
[~2020-05-29] MED LIST changes: +MELATONIN10 M2 PO; +NYSTATIN 100,0015 G1 TOP; +XANAX 0.5 MG0.5 M1 PO
== END ==
LOC: M.RAD 14:40
PROVIDERS: ATTEND Family Medicine
DX: M85.88 Other specified disorders of bone density and structure, other site (principal)

== ENCOUNTER 2020-05-31 14:58 | Observation (INO) | payer OTHER ==
[~2020-05-31] VITALS: Ht 165.1 cm; Wt 104.3 kg
[~2020-05-31 14:58] MED LIST changes: -MELATONIN10 M2 PO; -XANAX 0.5 MG0.5 M1 PO
[2020-05-31 15:23] LABS: ABSOLUTE BASOPHILS 0.1 thou/uL (0.0-0.2); ABSOLUTE EOSINOPHILS 0.1 thou/uL (0.0-0.7); ABSOLUTE LYMPHOCYTES 1.6 thou/uL (0.8-5.3); ABSOLUTE MONOCYTES 0.4 thou/uL (0.0-1.2); ABSOLUTE NEUTROPHILS 4.7 thou/uL (1.6-8.1); BASOPHILS 1.3 %; EOSINOPHILS 0.8 %; HEMATOCRIT 42.3 % (37.0-47.0); HEMOGLOBIN 14.7 gm/dL (12.0-15.0); LYMPHOCYTES 23.2 %; MCH 31.2 pg (26.0-34.0); MCHC 34.8 g/dL (28.0-37.0); MCV 89.5 fL (80.0-100.0); MONOCYTES 5.5 %; MPV 7.5 fl. (7.2-11.1); NUCLEATED RBCS 0 /100WBC; PLATELET COUNT* 291 thou/uL (150-400); POLYS 69.2 %; RBC 4.73 mil/uL (4.20-5.00); RDW-CV 12.9 % (10.5-14.5); WBC 6.8 thou/uL (4.0-11.0)
[2020-05-31 15:34] LABS: APTT 24.5 Seconds (25.0-31.3); INR 1.1; PROTIME 11.4 Seconds (9.20-11.50)
[2020-05-31 15:38] LABS: CALCIUM 9.6 mg/dL (8.5-10.1); POTASSIUM 3.9 mmol/L (3.5-5.1)
[2020-05-31 15:47] LABS: ALBUMIN 3.8 g/dL (3.4-5.0); CK-MB MASS 0.6 ng/mL (<0.5-3.6); MAGNESIUM 1.9 mg/dL (1.8-2.4); TOTAL BILIRUBIN 0.6 mg/dL (<0.1-1.0); TOTAL PROTEIN 7.7 g/dL (6.4-8.2)
[2020-05-31 21:02] VITALS: BP 131/71
[2020-05-31 21:10] VITALS: BP 139/65
[2020-05-31] MEDS ORDERED: MELATONIN10 M2 PO (23:30)
[2020-06-01] VITALS: BP 103/46
--- NOTE | 2020-06-01 03:53 | NUR ---
NO ACUTE CHANGES THROUGHOUT SHIFT. ALL ROUNDINGS COMPLETED, ALL NEEDS MET, FULL ASSESSMENT COMPLETED CHARTED. CALL LIGHT AND PERSONAL ITEMS AT WITHIN REACH.
[2020-06-01 04:00] VITALS: BP 105/50
[2020-06-01 04:52] LABS: ABSOLUTE EOSINOPHILS 0.1 thou/uL (0.0-0.7); ABSOLUTE LYMPHOCYTES 2.1 thou/uL (0.8-5.3); ABSOLUTE MONOCYTES 0.5 thou/uL (0.0-1.2); ABSOLUTE NEUTROPHILS 3.4 thou/uL (1.6-8.1); BASOPHILS 0.6 %; EOSINOPHILS 1.5 %; HEMATOCRIT 39.4 % (37.0-47.0); HEMOGLOBIN 13.8 gm/dL (12.0-15.0); LYMPHOCYTES 34.3 %; MCH 31.6 pg (26.0-34.0); MCHC 35.1 g/dL (28.0-37.0); MONOCYTES 8.2 %; MPV 7.8 fl. (7.2-11.1); NUCLEATED RBCS 0 /100WBC; PLATELET COUNT* 254 thou/uL (150-400); POLYS 55.4 %; RBC 4.38 mil/uL (4.20-5.00); RDW-CV 13.2 % (10.5-14.5); WBC 6.1 thou/uL (4.0-11.0)
[2020-06-01 05:15] LABS: ANION GAP 8 mmol/L (7-16); BUN 16 mg/dL (7-18); CALCIUM 8.9 mg/dL (8.5-10.1); CHLORIDE 104 mmol/L (98-107); CO2 28 mmol/L (21-32); CREATININE 1.1 mg/dL (0.6-1.3); GLUCOSE 171 mg/dL (70-99); POTASSIUM 3.9 mmol/L (3.5-5.1); SODIUM 140 mmol/L (136-145); TROPONIN-I LEVEL <0.06 ng/mL (<0.06)
[2020-06-01 08:00] VITALS: BP 132/72
[2020-06-01] MEDS ORDERED: XANAX 0.5 MG0.5 M1 PO (11:42)
[2020-06-01 12:24] VITALS: BP 132/72; BP 132/87
--- NOTE | 2020-06-01 12:43 | NUR ---
ASSUMED PT CARE . REPORT RECEIVED FROM NURSE. PT IS AOX4. ON RA. AIMEE SR ON DOWN FILLER. UP AD BRITTANEY. PT IS ANXIOUS. VSS. XANAX GIVEN TWICE. DISCHARGE ORDERED. PT IS TO GO HOME. CARDIO CONSULT WAS CANCELLED. IV LINE REMOVED. HEART MONITOR RETRIEVED. PT LEFT UNIT AT 1235 ACCOMPANIED BY THIS NURSE ON WHEELCHAIR. BELONGINGS BROUGHT ALONG. GRANDDAUGHTER PICKED UP.
--- NOTE | 2020-06-01 12:50 | EKG ---
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
== END 2020-06-01 12:35 | disposition home health service (06) ==
LOC: M.ERS 14:58 → M.TBA-ER 16:13 → M.2W 16:13
PROVIDERS: Family Medicine; ADMIT Internal Medicine; ATTEND Internal Medicine
DX: Z03.818 Encounter for observation for suspected exposure to other biological agents ruled out (principal); I11.0 Hypertensive heart disease with heart failure; I50.9 Heart failure, unspecified; I25.10 Atherosclerotic heart disease of native coronary artery without angina pectoris; I25.2 Old myocardial infarction; R07.89 Other chest pain; R55 Syncope and collapse; J44.9 Chronic obstructive pulmonary disease, unspecified; E11.9 Type 2 diabetes mellitus without complications; K21.9 Gastro-esophageal reflux disease without esophagitis

== ENCOUNTER 2020-11-03 15:08 | Emergency (ER) | payer OTHER ==
[~2020-11-03] VITALS: Ht 167.6 cm; Wt 112.0 kg
[~2020-11-03 15:08] MED LIST changes: +MELATONIN10 M2 PO; +XANAX 0.5 MG0.5 M1 PO
[2020-11-03 16:17] LABS: BE -0.7 mmol/L (-2 to +3); PCO2 37.3 mmHg (35.0-45.0); PO2 76.3 mmHg (75.0-100.0); pH 7.416 (7.340-7.450)
[2020-11-03 17:04] LABS: ABSOLUTE BASOPHILS 0.1 thou/uL (0.0-0.2); ABSOLUTE EOSINOPHILS 0.1 thou/uL (0.0-0.7); ABSOLUTE LYMPHOCYTES 1.8 thou/uL (0.8-5.3); ABSOLUTE MONOCYTES 0.5 thou/uL (0.0-1.2); ABSOLUTE NEUTROPHILS 5.2 thou/uL (1.6-8.1); EOSINOPHILS 0.7 %; HEMATOCRIT 43.9 % (37.0-47.0); HEMOGLOBIN 14.8 gm/dL (12.0-15.0); LYMPHOCYTES 23.8 %; MCH 30.3 pg (26.0-34.0); MCHC 33.8 g/dL (28.0-37.0); MCV 89.6 fL (80.0-100.0); MONOCYTES 6.4 %; NUCLEATED RBCS 0 /100WBC; PLATELET COUNT* 278 thou/uL (150-400); POLYS 68.1 %; RDW-CV 13.6 % (10.5-14.5); WBC 7.7 thou/uL (4.0-11.0)
[2020-11-03 17:15] LABS: URINE BILIRUBIN NEGATIVE (Negative); URINE BLOOD NEGATIVE (Negative); URINE CLARITY CLEAR; URINE COLOR YELLOW; URINE GLUCOSE-RANDOM NEGATIVE (Negative); URINE KETONES NEGATIVE (Negative); URINE LEUKOCYTES-REFLEX NEGATIVE (Negative); URINE NITRITE-REFLEX NEGATIVE (Negative); URINE PROTEIN NEGATIVE (Negative); URINE UROBILINOGEN 0.2 E.U./dl (0.2-1.0)
[2020-11-03 17:15] LABS: CALCIUM 9.2 mg/dL (8.5-10.1); CREATININE 1.1 mg/dL (0.6-1.3); POTASSIUM 4.2 mmol/L (3.5-5.1)
[2020-11-03 17:19] LABS: ALBUMIN 3.6 g/dL (3.4-5.0); MAGNESIUM 2.1 mg/dL (1.8-2.4); TOTAL BILIRUBIN 0.4 mg/dL (<0.1-1.0)
[2020-11-03 18:53] VITALS: BP 132/63
--- NOTE | 2020-11-04 09:05 | EKG ---
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 : 1955 Requested By: Maya Tovar Order Number: [id number] MD: Dejon Buck Measurements Intervals [place] Rate: 86 P: 43 CO: 116 QRS: 7 QRSD: 88 T: 43 QT: 366 QTc: 438 Interpretive Statements Sinus rhythm Borderline short CO interval Abnormal inferior Q waves Baseline wander in lead(s) V6 Compared to ECG 05/31/2020 15:10:30 no change Electronically Signed On 11-04-2020 9:04:48 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
== END 2020-11-03 18:54 | disposition home or self-care (01) ==
LOC: M.ERS 15:08
PROVIDERS: Personal Emergency Response Attendant
DX: I95.9 Hypotension, unspecified (principal); E11.9 Type 2 diabetes mellitus without complications; Z20.828 Contact with and (suspected) exposure to other viral communicable diseases; I25.10 Atherosclerotic heart disease of native coronary artery without angina pectoris; J44.9 Chronic obstructive pulmonary disease, unspecified; I48.91 Unspecified atrial fibrillation; I11.0 Hypertensive heart disease with heart failure; I50.32 Chronic diastolic (congestive) heart failure; M79.7 Fibromyalgia; E66.01 Morbid (severe) obesity due to excess calories; Z68.39 Body mass index [BMI] 39.0-39.9, adult; Z90.49 Acquired absence of other specified parts of digestive tract; Z88.1 Allergy status to other antibiotic agents; Z88.0 Allergy status to penicillin; Z88.5 Allergy status to narcotic agent; Z88.8 Allergy status to other drugs, medicaments and biological substances

== ENCOUNTER 2021-05-23 14:12 | Emergency (ER) | payer OTHER ==
[~2021-05-23] VITALS: Ht 165.1 cm; Wt 131.5 kg
[2021-05-23] MEDS ORDERED: WELLBUTRIN XL300 MG PO (14:16)
[2021-05-23] MEDS ORDERED: LASIX 80 MG TAB80 MG PO (14:17)
[2021-05-23] MEDS ORDERED: MORPHINE SULFAT15 M3 PO (14:27)
[2021-05-23] MEDS ORDERED: ZOFRAN ODT4 MG PO (15:03)
[2021-05-23] MEDS ORDERED: MEDROLDOSEPACK PO (15:03)
[2021-05-23] MEDS ORDERED: ZANAFLEX4 MG PO (15:22)
[2021-05-23 15:23] VITALS: BP 124/55
== END 2021-05-23 15:24 | disposition home or self-care (01) ==
LOC: M.ERS 14:12
DX: G89.29 Other chronic pain (principal); M54.5 Low back pain; K21.9 Gastro-esophageal reflux disease without esophagitis; I25.10 Atherosclerotic heart disease of native coronary artery without angina pectoris; I11.0 Hypertensive heart disease with heart failure; I50.32 Chronic diastolic (congestive) heart failure; E66.01 Morbid (severe) obesity due to excess calories; J44.9 Chronic obstructive pulmonary disease, unspecified; I48.91 Unspecified atrial fibrillation; Z88.1 Allergy status to other antibiotic agents; Z88.0 Allergy status to penicillin; Z88.8 Allergy status to other drugs, medicaments and biological substances; Z88.5 Allergy status to narcotic agent; Z90.49 Acquired absence of other specified parts of digestive tract; Z87.01 Personal history of pneumonia (recurrent); Z68.42 Body mass index [BMI] 45.0-49.9, adult; Z86.718 Personal history of other venous thrombosis and embolism